=== PATIENT | female | born 1950 | race Caucasian/White ===

== ENCOUNTER 2022-12-21 07:21 | Outpatient (OUT) | payer MEDICARE, SELFPAY ==
[2022-12-21 08:19] LABS: Basophils Percent Auto 0.3 % (0.2-2.0); Eosinophils Absolute Auto 0.1 10^3/uL (0.0-0.7); Eosinophils Percent Auto 1.2 % (0.9-7.0); Hematocrit 44.6 % (36.0-48.0); Hemoglobin 14.7 g/dL (12.0-16.0); Immature Granulocytes Abs Auto 0.01 10^3/uL (0.00-0.03); Immature Granulocytes Pct Auto 0.1 % (0.0-0.5); Lymphocytes Absolute Auto 2.3 10^3/uL (1.2-3.8); Lymphocytes Percent Auto 25.1 % (20.5-60.0); Mean Corpuscular Hemoglobin 31.2 pg (26.7-34.0); Mean Corpuscular Volume 94.7 fL (81.0-99.0); Mean Platelet Volume 9.6 fL (9.5-13.5); Monocytes Absolute Auto 0.7 10^3/uL (0.3-0.8); Monocytes Percent Auto 7.8 % (1.7-12.0); Neutrophils Percent Auto 65.5 % (43.0-75.0); Platelet Count 249 10^3/uL (150-450); Red Blood Count 4.71 10^6/uL (4.20-5.40); Red Cell Distribution Width 13.4 % (11.0-15.0); White Blood Count 9.2 10^3/uL (4.0-11.0)
[2022-12-21 08:30] LABS: Estimated Average Glucose 97 mg/dL
[2022-12-21 08:39] LABS: Anion Gap 11.6; BUN Creatinine Ratio 19.2; Calcium 9.1 mg/dL (8.5-10.1); Chloride 103 mmol/L (98-107); Chol HDL Ratio 3.8; Cholesterol 192 mg/dL (<=200); Estimated GFR (African America >60 (>=60); Estimated GFR (Non-African Ame >60 (>=60); Glucose 104 mg/dL (74-106); HDL Cholesterol 50 mg/dL (40-60); Potassium 3.6 mmol/L (3.5-5.1); Sodium 138 mmol/L (136-145); Triglycerides 202 mg/dL (<=150); VLDL CHOLESTEROL 40.4 mg/dL
[2022-12-21 10:56] LABS: Microalbumin Urine Random <1.3 mg/dL (<=30.0)
== END 2022-12-21 07:22 | disposition home or self-care (01) ==
LOC: LAB 07:22
PROVIDERS: PCP Internal Medicine; Visit Provider Internal Medicine
DX: E11.65 Type 2 diabetes mellitus with hyperglycemia (principal); E78.00 Pure hypercholesterolemia, unspecified; I10 Essential (primary) hypertension; Z79.899 Other long term (current) drug therapy
CPT/HCPCS: 36415; 80048; 80061; 82043; 83036; 85025

== ENCOUNTER 2023-01-31 09:24 | Outpatient (OUT) | payer MEDICARE, SELFPAY ==
--- NOTE | 2023-01-31 09:27 | MM_ITS ---
Patient Name: JUDD YOUNG MR#: [id number] : 1950 Exam Date: 01/31/2023 Ordering Doctor: DR Kenan Donald D.O. RADIOLOGY REPORT PROCEDURE: MM TOMOSYNTHESIS SCREENING BI COMPARISON: MG MAMM SCREEN 3D [place] CAD, 01/27/2022. MG MAMM SCREEN 3D [place] CAD, 10/16/2020. MG MAMM SCREEN [place] W CAD, 03/05/2019. MG MAMM [place] DIAG W CAD, 03/06/2018. INDICATIONS: Screening Calculator Name NCI Breast Cancer Risk Assessment Tool 5 Year Breast Cancer Risk Not Reported. Lifetime Breast Cancer Risk Not Reported. Personal Breast Cancer No Personal Ovarian Cancer No Treatments None Family Cancers None LOCATION: [facility] BREAST COMPOSITION: Heterogeneously dense,which may obscure small masses. FINDINGS: DIAGNOSTIC CATEGORY 2--BENIGN FINDING: RIGHT BREAST: No significant suspicious finding. No significant change has occurred. LEFT BREAST: No significant suspicious finding. Stable benign-appearing calcifications are present. No significant change has occurred. RECOMMENDATIONS: ROUTINE MAMMOGRAM AND CLINICAL EVALUATION IN 12 MONTHS. PLEASE NOTE: A NORMAL MAMMOGRAM DOES NOT EXCLUDE THE POSSIBILITY OF BREAST CANCER. A CLINICALLY SUSPICIOUS PALPABLE LUMP SHOULD BE BIOPSIED. Dictated by: Jose Manuel Rodríguez M.D. on 02/01/2023 at 14:56 Approved by: Jose Manuel Rodríguez M.D. on 02/01/2023 at 15:23
== END 2023-01-31 09:25 | disposition home or self-care (01) ==
LOC: MAMMO 09:24
PROVIDERS: PCP Internal Medicine; Visit Provider Internal Medicine
DX: Z12.31 Encounter for screening mammogram for malignant neoplasm of breast (principal)
CPT/HCPCS: 77063; 77067

== ENCOUNTER 2023-05-06 10:01 | Outpatient (OUT) | payer MEDICARE, SELFPAY ==
--- OUTSIDE RECORDS SUMMARY | 2023-05-06 10:04 | XMS_ITS | CCD ---
Author Name Unknown Address [address] [place] [address] Organization [facility] Care Team Providers Care Agricultural Inspector Name Role Phone KENAN DONALD Referring Unavailable KENAN DONALD Primary Care Unavailable Kenan Donald DO Primary Care Provider OLU, DR DORENE Levin Admitting Unavailable BALL, DR BREWER Primary Care Unavailable RAINES, DR DORENE Levin Attending Unavailable RAINES, DR DORENE Levin Consulting Unavailable FRANKLIN, WINCHA Consulting Unavailable JASON, OCTAVIO Consulting Unavailable READER, BRUCE Consulting Unavailable BALL, DR BREWER Admitting Unavailable BALL, DR BREWER Attending Unavailable BALL, DR BREWER Primary Care Unavailable REQUEST, DR SMITH LISTED Admitting Unavaila ble BALL, DR BREWER Primary Care Unavailable REQUEST, DR SMITH LISTED Attending Unavaila ble REQUEST, DR SMITH LISTED Consulting Unavaila ble BALL, DR BREWER Admitting Unavailable BALL, DR BREWER Attending Unavailable BALL, DR BREWER Consulting Unavailable BALL, DR BREWER Primary Care Unavailable WEST, DR ONEIL Martinez Consulting Unavailable BALL, DR BREWER Admitting Unavailable BALL, DR BREWER Attending Unavailable BALL, DR BREWER Consulting Unavailable BALL, DR BREWER Primary Care Unavailable BALL, DR BREWER Admitting Unavailable BALL, DR BREWER Attending Unavailable BALL, DR BREWER Consulting Unavailable BALL, DR BREWER Primary Care Unavailable WEST, DR ONEIL Martinez Consulting Unavailable BALL, DR BREWER Primary Care Unavailable BALL, DR BREWER Admitting Unavailable BALL, DR BREWER Attending Unavailable BALL, DR BREWER Consulting Unavailable Ball, Kenan Unavailable Allergies Allergy Classification Reported Allergen(s) Allergy Type Date of Onset Reaction(s) Facility (1 source) Sulfonamides (Antibiotic) Drug allergy (disorder) [facility] (6 sources) Lisinopril Drug Allergy cough [facility] Other (6 sources) Sulfamethoxazole Drug Allergy Unknown [facility] Other (6 sources) Sulfamethoxazole / Trimethoprim Drug Allergy Unknown [facility] Other Medications Current Medications Medication Drug Class(es) Dates Sig (Normalized) Sig (Original) 3 ML semaglutide 1.34 MG/ML Pen Injector [Ozempic] (6 sources) Start: 04-14-2022 inject 1 mg by subcutaneous injection every week Ozempic (1 MG/DOSE) 4 MG/3ML 1mg Subcutaneous weekly for 28 days Mar, Active Ozempic (1 MG/DO SE) 4 MG/3ML INJECT 1 MG SUBCUTANEOUSLY WEEKLY FOR 28 DAYS for 28 Active 3 ML semaglutide 2.68 MG/ML Pen Injector [Ozempic] (3 sources) Start: 12-20-2022 inject 2 mg by subcutaneous injection every week Ozempic (2 MG/DOSE) 8 MG/3ML 2MG Subcutaneous weekly for 28 days Dec, Active adapalene 0.003 mg/mg topical gel (1 source) Retinoid Start: 11-10-2017 Adapalene 0.3 % GEL APPLY THIN LAYER TO FACE AND TRUNK EVERY DAY AT BEDTIME 2 11/10/2017 Active clobetasol propionate 0.0005 mg/mg topical ointment (6 sources) Corticosteroid Clobetasol Propionate 0.05 % 1 application Externally Twice a day Active losartan potassium 25 mg oral tablet (6 sources) Angiotensin 2 Receptor Bogdan take 1 tablet by mouth once daily Losartan Potassium 25 MG TAKE 1 TABLET BY MOUTH EVERY DAY Active metFORMIN hydrochloride 500 mg oral tablet (6 sources) Biguanide take 1 tablet by mouth at mealtime metFORMIN HCl 500 MG TAKE 1 TABLET BY MOUTH IN THE MORNING AND AT SUPPER TIME WITH FOOD Active take 1 tablet by mouth twice allie ly metFORMIN HCl 500 MG 1 tablet with a meal Orally twice a day Active minocycline 50 mg oral capsule (1 source) Tetracycline-class Drug Start: 11-05-2017 take 1-2 capsules by mouth once daily minocycline (MINOCIN;DYNACIN) 50 MG capsule TAKE 1 TO 2 CAPSULES BY MOUTH EVERY DAY 5 11/05/2017 Active omeprazole 20 mg delayed release oral capsule (7 sources) Proton Pump Inhibitor Omeprazole 20 MG TAKE 1 CAPSULE DAILY ON EMPTY STOMACH FOLLOWED IN 30 MINUTES BY BKFST Active take 20 mg by mouth once daily O meprazole (PRILOSEC PO) Take 20 mg by mouth daily OTC 0 Active OneTouch SureSoft Lancing Dev - (6 sources) OneTouch SureSof t Lancing Dev - as directed Active OneTouch Verio - (6 sources) OneTouch Verio - as directed In Vitro Active OneTouch Verio w/Device (6 sources) OneTouch Verio w /Device as directed Active 0.25 mg, 0.5 mg dose 1.5 ml semaglutide 1.34 mg/ml pen injector (2 sources) Ozempic (0.25 or 0.5 MG/DOSE) 2 MG/1.5ML as directed Subcutaneous Active spironolactone 50 mg oral tablet (1 source) Aldosterone Antagonist Start: 01-23-2018 spironolactone (ALDACTONE) 50 MG tablet triamcinolone acetonide 0.001 mg/mg topical ointment (1 source) Corticosteroid Start: 03-01-2019 triamcinolone (KENALOG) 0.1 % ointment Indications: Vulvar irritation Use twice daily over affected areas as needed for vulvar irritation. Not to exceed 6 weeks of continuous usage 1 Tube 1 03/01/2019 Active Problems Active Problems Problem Classification Problem Date Documented Da te Episodic/Chronic Diabetes mellitus with complications (9 sources) Type 2 diabetes mellitus with hyperglycemia; Translations: [Type 2 diabetes mellitus] Onset: 2 Chronic Diabetes mellitus without complication (1 source) Type 2 diabetes mellitus without complications; Translations: [TYPE 2 DM WITHOUT COMPLICATIONS] Onset: 2 Chronic Diabetes mellitus without complication (3 sources) Impaired fasting glycemia; Translations: [Impaired fasting glucose] Episodic Disorders of lipid metabolism (12 sources) Familial hypercholesterolemia; Translations: [Hypercholesterolemia] Onset: 2 Chronic Esophageal disorders (5 sources) Gastroesophageal reflux disease; Translations: [Gastro-esophageal reflux disease without esophagitis] Chronic Essential hypertension (12 sources) Essential (primary) hypertension; Translations: [Essential hypertension] Onset: 2 Chronic Genitourinary symptoms and ill-defined conditions (6 sources) Urinary incontinence; Translations: [Unspecified urinary incontinence] Chronic Heart valve disorders (1 source) Cardiac murmur, unspecified Episodic Malaise and fatigue (4 sources) Fatigue; Translations: [Other fatigue] Episodic Nutritional deficiencies (2 sources) Vitamin D deficiency; Translations: [Vitamin D deficiency, unspecified] Chronic Osteoarthritis (4 sources) Osteoarthritis of right hip joint; Translations: [Unilateral primary osteoarthritis, right hip] Chronic Other aftercare (2 sources) Other hop strainer (current) drug therapy; Translations: [OTH MCFP CURRENT DRUG THERAPY] Onset: 2 Episodic Other aftercare (6 sources) H/O: high risk medication; Translations: [Other fci (current) drug therapy] Episodic Other connective tissue disease (2 sources) Other symptoms and signs involving the nervous system; Translations: [Suspected sleep apnea] Episodic Other female genital disorders (6 sources) Leukoplakia of vulva; Translations: [Leukoplakia of vulva] Episodic Other gastrointestinal disorders (2 sources) Dysphagia; Translations: [Dysphagia, unspecified] Episodic Other non-traumatic joint disorders (4 sources) Pain in right hip joint; Translations: [Pain in right hip] Episodic Other non-traumatic joint disorders (1 source) Pain in right hip Episodic Other nutritional; endocrine; and metabolic disorders (1 source) Body mass index 30+ - obesity Onset: 5 03-22-2014 Chronic Other nutritional; endocrine; and metabolic disorders (6 sources) Obese class I; Translations: [Obesity, unspecified] Chronic Other nutritional; endocrine; and metabolic disorders (1 source) Obesity, unspecified Chronic Other nutritional; endocrine; and metabolic disorders (1 source) Overweight Episodic Other screening for suspected conditions (not mental disorders or infectious disease) (5 sources) Encounter for screening mammogram for malignant neoplasm of breast; Translations: [ENC SCR MAMMO MALIG NEOPLASM BREAST] Onset: 2 Episodic Residual codes; unclassified (2 sources) Asymptomatic menopausal state; Translations: [Menopause] Episodic Residual codes; unclassified (4 sources) Menopause present; Translations: [Asymptomatic menopausal state] Episodic Superficial injury; contusion (7 sources) Contusion of left back wall of thorax, initial encounter; Translations: [Contusion of unspecified back wall of thorax, initial encounter] Onset: 2 Episodic Unclassified (1 source) Patient encounter status Past or Other Problems Problem Classification Problem Date Documented Da te Episodic/Chronic E Codes: Fall (1 source) Fall from bed, initial encounter; Translations: [FALL FROM BED INITIAL ENCOUNTER] Onset: 10-20-2021 Episodic Esophageal disorders (5 sources) Esophageal disorders; Translations: [Gastroesophageal reflux disease with esophagitis without hemorrhage] Other aftercare (1 source) learning design specialist (current) use of oral hypoglycemic drugs; Translations: [MCFP USE ORAL HYPOGLYCEMIC DX] Onset: 10-20-2021 Episodic Other female genital disorders (1 source) Dystrophy of vulva Onset: 07-19-2014 07-19-2014 Episodic Other lower respiratory disease (4 sources) Pleurodynia; Translations: [PLEURODYNIA] Onset: 10-18-2021 Episodic Spondylosis; intervertebral disc disorders; other back problems (2 sources) Muscle spasm of back; Translations: [Dorsalgia, unspecified] Onset: 10-20-2021 Episodic Viral infection (2 sources) Disease caused by 2019-nCoV; Translations: [COVID-19] Results Test Name Value Interpretation Reference Range Facility MG MAMM SCREEN 3D KAITLYNN CADon 01-27-2022 MG MAMM SCREEN 3D KAITLYNN CAD Patient: JUDD YOUNG Exam Date: 01/27/2022 : 1950 Gender:F Ordering : DR KENAN DONALD D.O. Admission #: [id number] Family : Order #: [id number] CLICK HERE TO VIEW EXAM RADIOLOGY REPORT PROCEDURE: MAMMOGRAM SCREENING 3D BILATERAL CAD COMPARISON: MG MAMM SCREEN KAITLYNN W CAD, 03/05/2019. MG MAMM SCREEN 3D KAITLYNN CAD, 10/16/2020. INDICATIONS: Screening mammography Calculator Name NCI Breast Cancer Risk Assessment Tool 5 Year Breast Cancer Risk Not Reported. Lifetime Breast Cancer Risk Not Reported. Personal Breast Cancer No Personal Ovarian Cancer No Treatments None Family Cancers None LOCATION: [facility] BREAST COMPOSITION: Heterogeneously dense,which may obscure small masses. FINDINGS: DIAGNOSTIC CATEGORY 2--BENIGN FINDING. NO CHANGE FROM COMPARISON. Scattered benign-appearing calcifications are present. Scattered benign-appearing lymph nodes are present. RIGHT BREAST: No significant suspicious finding. LEFT BREAST: No significant suspicious finding. RECOMMENDATIONS: ROUTINE MAMMOGRAM AND CLINICAL EVALUATION IN 12 MONTHS. PLEASE NOTE: A NORMAL MAMMOGRAM DOES NOT EXCLUDE THE POSSIBILITY OF BREAST CANCER. A CLINICALLY SUSPICIOUS PALPABLE LUMP SHOULD BE BIOPSIED. Dictated by: Oneil Riggs MD on 01/27/2022 at 13:10 Approved by: Oneil Riggs MD on 01/27/2022 at 13:12 Normal [facility] MICROALBUMIN URINEon 022 Albumin, Urine 22.7 ug/mL Normal Not Estab. [facility] Comment on above: Performed By: #### M ALBLC #### [facility] [address] [place] [address] Dr. Alex Gallego CBC AUTO DIFFon 12-15-2021 BASO # 0.0 103/ul Normal 0.0-0.1 [facility] Comment on above: Performed By: #### M ALBLC #### [facility] [address] [place] [address] Dr. Alex Gallego Basophils/100 WBC (Bld) 0.5 % Normal 0.2-2.0 [facility] Comment on above: Performed By: #### M ALBLC #### [facility] [address] [place] [address] Dr. Alex Gallego EO # 0.2 103/ul Normal 0.0-0.7 [facility] Comment on above: Performed By: #### M ALBLC #### [facility] [address] [place] [address] Dr. Alex Gallego Eosinophils/100 WBC (Bld) 2.2 % Normal 0.9-7.0 [facility] Comment on above: Performed By: #### M ALBLC #### [facility] [address] [place] [address] Dr. Alex Gallego Erythrocyte distribution width (RBC) [Ratio] 13.7 % Normal 11.0-15.0 [facility] Comment on above: Performed By: #### M ALBLC #### [facility] [address] [place] [address] Dr. Alex Gallego Hematocrit (Bld) [Volume fraction] 45.6 % Normal 36.0-48.0 [facility] Comment on above: Performed By: #### M ALBLC #### [facility] [address] [place] [address] Dr. Alex Gallego Hemoglobin (Bld) [Mass/Vol] 15.1 g/dL Normal 12.0-16.0 [facility] Comment on above: Performed By: #### M ALBLC #### [facility] [address] [place] [address] Dr. Alex Gallego IG # 0.02 10e3/ul Normal 0.00-0.03 [facility] Comment on above: Performed By: #### M ALBLC #### [facility] [address] [place] [address] Dr. Alex Gallego IG % 0.2 % Normal 0.0-0.5 [facility] Comment on above: Performed By: #### M ALBLC #### [facility] [address] [place] [address] Dr. Alex Gallego LYMPH # 3.7 103/ul Normal 1.2-3.8 [facility] Comment on above: Performed By: #### M ALBLC #### [facility] [address] [place] [address] Dr. Alex Gallego Lymphocytes/100 WBC (Bld) 46.1 % Normal 20.5-60.0 [facility] Comment on above: Performed By: #### M ALBLC #### [facility] [address] [place] [address] Dr. Alex Gallego MANUAL DIFF REQ NO Normal [facility] Comment on above: Performed By: #### M ALBLC #### [facility] [address] [place] [address] Dr. Alex Gallego MCH (RBC) [Entitic mass] 31.0 pg Normal 26.7-34.0 [facility] Comment on above: Performed By: #### M ALBLC #### [facility] [address] [place] [address] Dr. Alex Gallego MCHC (RBC) [Mass/Vol] 33.1 g/dL Normal 29.9-35.2 [facility] Comment on above: Performed By: #### M ALBLC #### [facility] [address] [place] [address] Dr. Alex Gallego MCV (RBC) [Entitic vol] 93.6 fL Normal 81.0-99.0 [facility] Comment on above: Performed By: #### M ALBLC #### [facility] [address] [place] [address] Dr. Alex Gallego MONO # 0.6 103/ul Normal 0.3-0.8 [facility] Comment on above: Performed By: #### M ALBLC #### [facility] [address] [place] [address] Dr. Alex Gallego Monocytes/100 WBC (Bld) 7.9 % Normal 1.7-12.0 [facility] Comment on above: Performed By: #### M ALBLC #### [facility] [address] [place] [address] Dr. Alex Gallego NEUT # 3.5 103/ul Normal 1.4-6.5 [facility] Comment on above: Performed By: #### M ALBLC #### [facility] [address] [place] [address] Dr. Alex Gallego Neutrophils/100 WBC (Bld) 43.1 % Normal 43.0-75.0 [facility] Comment on above: Performed By: #### M ALBLC #### [facility] [address] [place] [address] Dr. Alex Gallego Platelet mean volume (Bld) [Entitic vol] 9.5 fL Normal 9.5-13.5 [facility] Comment on above: Performed By: #### M ALBLC #### [facility] [address] [place] [address] Dr. Alex Gallego PLT 265 103/ul Normal 150-450 [facility] Comment on above: Performed By: #### M ALBLC #### [facility] [address] [place] [address] Dr. Alex Gallego RBC 4.87 106/ul Normal 4.20-5.40 [facility] Comment on above: Performed By: #### M ALBLC #### [facility] [address] [place] [address] Dr. Alex Gallego WBC 8.1 103/ul Normal 4.0-11.0 [facility] Comment on above: Performed By: #### M ALBLC #### [facility] [address] [place] [address] Dr. Alex Gallego GLYCOHEMOGLOBIN A1Con 2021 ADA RECOMMENDATION SEE BELOW Normal [facility] Comment on above: Result Comment: ADA RECOMMENDED LIMIT 4.0 - 6.0 ADA THERAPEUTIC TARGET < 7.0 ACTION SUGGESTED > 7.0 Performed By: #### M ALBLC #### [facility] [address] [address] [address] Alex Gallego Glucose [Mass/Vol] 117 mg/dL Normal [facility] Comment on above: Performed By: #### M ALBLC #### [facility] [address] [address] [address] Alex Gallego HbA1c (Bld) [Mass fraction] 5.7 % Normal 4.5-6.2 [facility] Comment on above: Performed By: #### M ALBLC #### [facility] [address] [place] [address] Dr. Alex Gallego LIPID PROFILEon 12-15-2021 CHOL-HDL RATIO NORM SEE BELOW Normal [facility] Comment on above: Result Comment: 3.3 - 4.4 LOW RISK 4.4 - 7.1 AVERAGE RISK 7.1 - 11.0 MODERATE RISK >11.0 HIGH RISK Performed By: #### L IPID, ALT, BMP #### [facility] [address] [place] [address] Dr. Alex Gallego Cholesterol [Mass/Vol] 195 mg/dL Normal <=200 [facility] Comment on above: Performed By: #### L IPID, ALT, BMP #### [facility] [address] [address] [address] Alex Gallego Cholesterol in HDL [Mass/Vol] 45 mg/dL Normal 40-60 [facility] Comment on above: Performed By: #### L IPID, ALT, BMP #### [facility] [address] [address] [address] Alex Gallego Cholesterol in LDL [Mass/Vol] 120.0 mg/dL Normal [facility] Comment on above: Performed By: #### L IPID, ALT, BMP #### [facility] [address] [address] [address] Alex Gallego Cholesterol.total/Cho lesterol in HDL [Mass ratio] 4.3 {ratio} Normal [facility] Comment on above: Performed By: #### L IPID, ALT, BMP #### [facility] [address] [address] [address] Alex Gallego HDL NORMAL > or = 60 mg/dl - LO W CARDIOVASCULAR RISK <40 mg/dl - HIGH CARDIOVASCULAR RISK Normal [facility] Comment on above: Performed By: #### L IPID, ALT, BMP #### [facility] [address] [address] [address] Alex Gallego LDL CALC NORMAL SEE BELOW Normal [facility] Comment on above: Result Comment: <100 mg/dl OPTIMAL 100 - 129 mg/dl NEAR OR ABOVE OPTIMAL 130 - 159 mg/dl BORDERLINE HIGH 160 - 189 mg/dl HIGH >190 mg/dl VERY HIGH Performed By: #### L IPID, ALT, BMP #### [facility] [address] [address] [address] Alex Gallego Triglyceride [Mass/Vol] 150 mg/dL Normal <=150 [facility] Comment on above: Performed By: #### L IPID, ALT, BMP #### [facility] [address] [address] [address] Alex Gallego VLDL CALC 30.0 mg/dL Normal [facility] Comment on above: Performed By: #### L IPID, ALT, BMP #### [facility] [address] [address] [address] Alxe Gallego PROF CHEM 8 (BAS METB)on Anion gap [Moles/Vol] 13.6 mmol/L Normal [facility] Comment on above: Performed By: #### L IPID, ALT, BMP #### [facility] [address] [address] [address] Alex Gallego Calcium [Mass/Vol] 9.3 mg/dL Normal 8.5-10.1 [facility] Comment on above: Performed By: #### L IPID, ALT, BMP #### [facility] [address] [address] [address] Alex Gallego Chloride [Moles/Vol] 103 mmol/L Normal 98-107 [facility] Comment on above: Performed By: #### L IPID, ALT, BMP #### [facility] [address] [address] [address] Alex Gallego CO2 [Moles/Vol] 27.6 mmol/L Normal 21.0-32.0 [facility] Comment on above: Performed By: #### L IPID, ALT, BMP #### [facility] [address] [address] [address] Alex Gallego Creatinine [Mass/Vol] 0.75 mg/dL Normal 0.55-1.02 [facility] Comment on above: Performed By: #### L IPID, ALT, BMP #### [facility] [address] [place] [address] Dr. Alex Gallego EGFR-AF GUATEMALAN >60 Normal >=60 [facility] Comment on above: Performed By: #### L IPID, ALT, BMP #### [facility] [address] [place] [address] Dr. Alex Gallego EGFR-NON AF GUATEMALAN >60 Normal >=60 [facility] Comment on above: Performed By: #### L IPID, ALT, BMP #### [facility] [address] [place] [address] Dr. Alex Gallego Glucose [Mass/Vol] 126 mg/dL Critically high 74-106 [facility] Comment on above: Performed By: #### L IPID, ALT, BMP #### [facility] [address] [address] [address] Alex Gallego Potassium [Moles/Vol] 4.2 mmol/L Normal 3.5-5.1 [facility] Comment on above: Performed By: #### L IPID, ALT, BMP #### [facility] [address] [place] [address] Dr. Alex Gallego Sodium [Moles/Vol] 140 mmol/L Normal 136-145 [facility] Comment on above: Performed By: #### L IPID, ALT, BMP #### [facility] [address] [place] [address] Dr. Alex Gallego Urea nitrogen [Mass/Vol] 16.0 mg/dL Normal 7.0-18.0 [facility] Comment on above: Performed By: #### L IPID, ALT, BMP #### [facility] [address] [place] [address] Dr. Alex Gallego Urea nitrogen/Creatinine [Mass ratio] 21.3 mg/mg Normal [facility] Comment on above: Performed By: #### L IPID, ALT, BMP #### [facility] [address] [place] [address] Dr. Alex Gallego [facility] 12-15-2021 ALT [Catalytic activity/Vol] 58 U/L Normal 14-59 [facility] Comment on above: Performed By: #### L IPID, ALT, BMP #### [facility] [address] [place] [address] Dr. Alex Gallego XR RIBS LT PA Crystal XR RIBS LT PA CH EXAMINATION: XR RIBS LT PA CH HISTORY: Contusion of back COMPARISON: 10/18/2021, 10/18/2021 FINDINGS: LUNGS: No significant pulmonary parenchymal abnormalities. PLEURA: No pneumothorax, effusion, or pleural thickening. MEDIASTINUM: No visible mass or adenopathy. CARDIAC: No cardiomegaly or cardiac silhouette abnormality. RIBS: No acute rib fracture OTHER: Single surgical anchor right humeral head IMPRESSION: No acute rib fracture Clear lungs Electronically authenticated by: ONEIL RIGGS Date: 2021-11-16 12:33 Normal [facility] CBC AUTO DIFFon 10-18-2021 BASO # 0.0 103/ul Normal 0.0-0.1 [facility] Comment on above: Performed By: #### C BC #### [facility] [address] [place] [address] Dr. Alex Gallego Basophils/100 WBC (Bld) 0.5 % Normal 0.2-2.0 [facility] Comment on above: Performed By: #### C BC #### [facility] [address] [place] [address] Dr. Alex Gallego EO # 0.2 103/ul Normal 0.0-0.7 [facility] Comment on above: Performed By: #### C BC #### [facility] [address] [place] [address] Dr. Alex Gallego Eosinophils/100 WBC (Bld) 2.1 % Normal 0.9-7.0 [facility] Comment on above: Performed By: #### C BC #### [facility] [address] [place] [address] Dr. Alex Gallego Erythrocyte distribution width (RBC) [Ratio] 14.1 % Normal 11.0-15.0 [facility] Comment on above: Performed By: #### C BC #### [facility] [address] [place] [address] Dr. Alex Gallego Hematocrit (Bld) [Volume fraction] 43.1 % Normal 36.0-48.0 [facility] Comment on above: Performed By: #### C BC #### [facility] [address] [place] [address] Dr. Alex Gallego Hemoglobin (Bld) [Mass/Vol] 14.5 g/dL Normal 12.0-16.0 [facility] Comment on above: Performed By: #### C BC #### [facility] [address] [place] [address] Dr. Alex Gallego IG # 0.01 10e3/ul Normal 0.00-0.03 [facility] Comment on above: Performed By: #### C BC #### [facility] [address] [place] [address] Dr. Alex Gallego IG % 0.1 % Normal 0.0-0.5 [facility] Comment on above: Performed By: #### C BC #### [facility] [address] [place] [address] Dr. Alex Gallego LYMPH # 2.8 103/ul Normal 1.2-3.8 [facility] Comment on above: Performed By: #### C BC #### [facility] [address] [place] [address] Dr. Alex Gallego Lymphocytes/100 WBC (Bld) 36.8 % Normal 20.5-60.0 [facility] Comment on above: Performed By: #### C BC #### [facility] [address] [place] [address] Dr. Alex Gallego MANUAL DIFF REQ NO Normal [facility] Comment on above: Performed By: #### C BC #### [facility] [address] [place] [address] Dr. Alex Gallego MCH (RBC) [Entitic mass] 30.9 pg Normal 26.7-34.0 [facility] Comment on above: Performed By: #### C BC #### [facility] [address] [place] [address] Dr. Alex Gallego MCHC (RBC) [Mass/Vol] 33.6 g/dL Normal 29.9-35.2 [facility] Comment on above: Performed By: #### C BC #### [facility] [address] [place] [address] Dr. Alex Gallego MCV (RBC) [Entitic vol] 91.9 fL Normal 81.0-99.0 [facility] Comment on above: Performed By: #### C BC #### [facility] [address] [place] [address] Dr. Alex Gallego MONO # 0.6 103/ul Normal 0.3-0.8 [facility] Comment on above: Performed By: #### C BC #### [facility] [address] [place] [address] Dr. Alex Gallego Monocytes/100 WBC (Bld) 7.6 % Normal 1.7-12.0 [facility] Comment on above: Performed By: #### C BC #### [facility] [address] [place] [address] Dr. Alex Gallego NEUT # 4.0 103/ul Normal 1.4-6.5 [facility] Comment on above: Performed By: #### C BC #### [facility] [address] [place] [address] Dr. Alex Gallego Neutrophils/100 WBC (Bld) 52.9 % Normal 43.0-75.0 [facility] Comment on above: Performed By: #### C BC #### [facility] [address] [address] [address] Alex Gallego Platelet mean volume (Bld) [Entitic vol] 9.5 fL Normal 9.5-13.5 [facility] Comment on above: Performed By: #### C BC #### [facility] [address] [address] [address] Alex Gallego PLT 255 103/ul Normal 150-450 [facility] Comment on above: Performed By: #### C BC #### [facility] [address] [address] [address] Alex Gallego RBC 4.69 106/ul Normal 4.20-5.40 [facility] Comment on above: Performed By: #### C BC #### [facility] [address] [place] [address] Dr. Alex Gallego WBC 7.5 103/ul Normal 4.0-11.0 [facility] Comment on above: Performed By: #### C BC #### [facility] [address] [place] [address] Dr. Alex Gallego CTA CHEST WO W CONon 022 CTA CHEST WO W CON EXAMINATION: CTA [facility]ARRETT ST WO W CON HISTORY: CHEST PAIN, UNSPECIFIED , fall from bed. ER physician is concerned for chest injury based on radiographs. COMPARISON: Chest radiograph 10/18/2021. TECHNIQUE: CT angiography of the chest following the administration of intravenous contrast. Coronal and sagittal MIP (maximum intensity projection) images were performed. Dose reduction techniques were achieved by using automated exposure control and/or adjustment of mA and/or kV according to patient size and/or use of iterative reconstruction technique. FINDINGS: The thoracic aorta is mildly atherosclerotic. There is no thoracic aortic aneurysm or dissection. Incidentally noted an aberrant right subclavian artery. The visualized subclavian and common carotid arteries at the upper chest are patent. Heart size is mildly enlarged. No pericardial effusion. There is no large, central, lobar, segmental or proximal subsegmental pulmonary embolism. There is breathing motion artifact and atelectasis throughout the lungs. No consolidation, effusion, or pneumothorax. No mediastinal, hilar, or axillary lymphadenopathy. There are few small calcified mediastinal lymph nodes and hilar lymph nodes. Nonenlarged thyroid gland. There is a small hiatal hernia. Marked fatty infiltration of the liver is seen with suggestion of hepatomegaly, incompletely evaluated. There are numerous calcified granulomas in the liver and spleen. No free fluid or free air in the upper abdomen. 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 There are mild degenerative changes of the spine. No thoracic spine compression fracture or listhesis. No acute cervical fracture or acute displaced fractures of the ribs above the diaphragm. IMPRESSION: 1. Mildly atherosclerotic thoracic aorta without aortic aneurysm or dissection. There is mild cardiomegaly and a vascular-variant with aberrant right subclavian artery. 2. Breathing motion artifact and atelectasis throughout the lungs, without focal consolidation, effusion, or pneumothorax. 3. Negative for pulmonary embolism. 4. Negative for thoracic lymphadenopathy. 5. Mild degenerative spurs of the thoracic spine without thoracic spine compression fracture or listhesis. No acute sternal fracture or acute displaced fractures of the ribs above the diaphragm. 6. Small hiatal hernia, marked fatty infiltration of the liver with suggestion of hepatomegaly that is incompletely evaluated, sequela of old healed granulomatous infection, and additional incidental findings as described. Electronically authenticated by: RANDI FRANKLIN Date: 2021-10-18 08:45 Normal [facility] PROF 14(COMP METB)on 022 Albumin [Mass/Vol] 4.1 g/dL Normal 3.4-5.0 [facility] Comment on above: Performed By: #### C MP #### [facility] [address] [place] [address] Dr. Alex Gallego Albumin/Globulin [Mass ratio] 1.1 {ratio} Normal [facility] Comment on above: Performed By: #### C MP #### [facility] [address] [address] [address] Alex Gallego ALP [Catalytic activity/Vol] 85 U/L Normal 46-116 [facility] Comment on above: Performed By: #### C MP #### [facility] [address] [address] [address] Alex Gallego ALT [Catalytic activity/Vol] 69 U/L Critically high 14-59 [facility] Comment on above: Performed By: #### C MP #### [facility] [address] [address] [address] Alex Gallego Anion gap [Moles/Vol] 14.3 mmol/L Normal [facility] Comment on above: Performed By: #### C MP #### [facility] [address] [place] [address] Dr. Alex Gallego AST [Catalytic activity/Vol] 33 U/L Normal 15-37 [facility] Comment on above: Performed By: #### C MP #### [facility] [address] [address] [address] Alex Gallego Bilirubin [Mass/Vol] 0.5 mg/dL Normal 0.2-1.0 [facility] Comment on above: Performed By: #### C MP #### [facility] [address] [place] [address] Dr. Alex Gallego Calcium [Mass/Vol] 8.9 mg/dL Normal 8.5-10.1 [facility] Comment on above: Performed By: #### C MP #### [facility] [address] [place] [address] Dr. Alex Gallego Chloride [Moles/Vol] 106 mmol/L Normal 98-107 [facility] Comment on above: Performed By: #### C MP #### [facility] [address] [place] [address] Dr. Alex Gallego CO2 [Moles/Vol] 25.7 mmol/L Normal 21.0-32.0 [facility] Comment on above: Performed By: #### C MP #### [facility] [address] [place] [address] Dr. Alex Gallego Creatinine [Mass/Vol] 0.86 mg/dL Normal 0.55-1.02 [facility] Comment on above: Performed By: #### C MP #### [facility] [address] [place] [address] Dr. Alex Gallego EGFR-AF GUATEMALAN >60 Normal >=60 [facility] Comment on above: Performed By: #### C MP #### [facility] [address] [place] [address] Dr. Alex Gallego EGFR-NON AF GUATEMALAN >60 Normal >=60 [facility] Comment on above: Performed By: #### C MP #### [facility] [address] [place] [address] Dr. Alex Gallego Globulin (S) [Mass/Vol] 3.6 g/dL Normal [facility] Comment on above: Performed By: #### C MP #### [facility] [address] [address] [address] Alex Gallego Glucose [Mass/Vol] 144 mg/dL Critically high 74-106 [facility] Comment on above: Performed By: #### C MP #### [facility] [address] [address] [address] Alex Gallego Potassium [Moles/Vol] 4.0 mmol/L Normal 3.5-5.1 [facility] Comment on above: Performed By: #### C MP #### [facility] [address] [place] [address] Dr. Alex Gallego Protein [Mass/Vol] 7.7 g/dL Normal 6.4-8.2 [facility] Comment on above: Performed By: #### C MP #### [facility] [address] [place] [address] Dr. Alex Gallego Sodium [Moles/Vol] 142 mmol/L Normal 136-145 [facility] Comment on above: Performed By: #### C MP #### [facility] [address] [address] [address] Alex Gallego Urea nitrogen [Mass/Vol] 19.0 mg/dL Critically high 7.0-18.0 [facility] Comment on above: Performed By: #### C MP #### [facility] [address] [address] [address] Alex Gallego Urea nitrogen/Creatinine [Mass ratio] 22.1 mg/mg Normal [facility] Comment on above: Performed By: #### C MP #### [facility] [address] [place] [address] Dr. Alex Gallego XR CHEST 1 Von 10-18-2021 XR CHEST 1 V EXAM: XR CHEST 1 V 10/18/2021. HISTORY: Pain in the posterior left mid ribs after a fall from a bed. CHEST PAIN, UNSPECIFIED COMPARISON: None. TECHNIQUE: A portable upright AP view of the chest was obtained. FINDINGS: The heart appears within normal limits in size allowing for the portable technique. No focal consolidation, pleural effusion, pneumothorax or evidence of congestive heart failure is seen. IMPRESSION: No radiographic evidence of active cardiopulmonary disease is seen. Electronically authenticated by: BRUCE READER Date: 2021-10-18 07:17 Normal [facility] JOAN - TSHon 07-21-2021 TSH 1.848 uIU/mL Normal 0.470-4.680 [facility] Comment on above: Performed By: #### M ALBLC #### [facility] [address] [place] [address] Dr. Alex Gallego TSH RANGE SEE BELOW Normal [facility] Comment on above: Result Comment: <0.3 4 UIU/ml HYPERTHYROID 0.34-5.60 UIU/ml EUTHYROID >5.60 UIU/ml HYPOTHYROID Performed By: #### M ALBLC #### [facility] [address] [place] [address] Dr. Alex Gallego GLYCOHEMOGLOBIN A1Con 2021 ADA RECOMMENDATION SEE BELOW Normal [facility] Comment on above: Result Comment: ADA RECOMMENDED LIMIT 4.0 - 6.0 ADA THERAPEUTIC TARGET < 7.0 ACTION SUGGESTED > 7.0 Performed By: #### M ALBLC #### [facility] [address] [place] [address] Dr. Alex Gallego Glucose [Mass/Vol] 123 mg/dL Normal [facility] Comment on above: Performed By: #### M ALBLC #### [facility] [address] [place] [address] Dr. Alex Gallego HbA1c (Bld) [Mass fraction] 5.9 % Normal 4.5-6.2 [facility] Comment on above: Performed By: #### M ALBLC #### [facility] [address] [place] [address] Dr. Alex Gallego MARKO DIGITAL SCREEN W CAD KAITLYNN ATERALOrdered By: Andrew Mix on 03-07-2019 No evidence of malignancy. Advise annual screening mammography. BREAST DENSITY SUMMARY C: The breasts are heterogeneously dense which may obscure small masses. BI-RADS 1 BIRADS: BIRADS - CATEGORY 1 Negative, no evidence of malignancy in either breast. OVERALL ASSESSMENT - NEGATIVE A letter of notification will be sent to the patient regarding the results. RECOMMENDATION: Routine bilateral annual screening mammography is recommended. Follow-up screening mammogram in 1 year is advised. [employer] Liaison Phone: EXAMINATION: BILATER AL DIGITAL SCREENING MAMMOGRAM, 03/05/2019 TECHNIQUE: CC and MLO views of the left and right breasts were obtained. Computer aided detection was utilized in the interpretation of this exam. 3D tomosynthesis images were obtained. COMPARISON: 17 February 2018; 06 November 2016; 03 July 2014; 27 August 2011 HISTORY: Screening. Negative family history of breast cancer. Oral contraceptive usage x2 months. Negative history of replacement therapy. No prior breast interventions. FINDINGS: The breasts are heterogeneously dense which can obscure small masses. No skin thickening, contour changes, malignant type microcalcifications areas of architectural distortion significant interval changes are noted. [employer] Liaison Phone: [place], pn Incoming Radiant Results From [employer] - 03/07/2019 11:48 AM EST EXAMINATION: BILATERAL DIGITAL SCREENING MAMMOGRAM, 03/05/2019 TECHNIQUE: CC and MLO views of the left and right breasts were obtained. Computer aided detection was utilized in the interpretation of this exam. 3D tomosynthesis images were obtained. COMPARISON: 17 February 2018; 06 November 2016; 03 July 2014; 27 August 2011 HISTORY: Screening. Negative family history of breast cancer. Oral contraceptive usage x2 months. Negative history of replacement therapy. No prior breast interventions. FINDINGS: The breasts are heterogeneously dense which can obscure small masses. No skin thickening, contour changes, malignant type microcalcifications areas of architectural distortion significant interval changes are noted. IMPRESSION: No evidence of malignancy. Advise annual screening mammography. BREAST DENSITY SUMMARY C: The breasts are heterogeneously dense which may obscure small masses. BI-RADS 1 BIRADS: BIRADS - CATEGORY 1 Negative, no evidence of malignancy in either breast. OVERALL ASSESSMENT - NEGATIVE A letter of notification will be sent to the patient regarding the results. RECOMMENDATION: Routine bilateral annual screening mammography is recommended. Follow-up screening mammogram in 1 year is advised. [employer] Work Phone: MARKO DIGITAL SCREEN W OR WO C AD BILATERALon 03-07-2019 MARKO DIGITAL SCREEN W OR WO CAD BILATERAL EXAMINATION: BILATERAL DIGITAL SCREENING MAMMOGRAM, 03/05/2019 TECHNIQUE: CC and MLO views of the left and right breasts were obtained. Computer aided detection was utilized in the interpretation of this exam. 3D tomosynthesis images were obtained. COMPARISON: 17 February 2018; 06 November 2016; 03 July 2014; 27 August 2011 HISTORY: Screening. Negative family history of breast cancer. Oral contraceptive usage x2 months. Negative history of replacement therapy. No prior breast interventions. FINDINGS: The breasts are heterogeneously dense which can obscure small masses. No skin thickening, contour changes, malignant type microcalcifications areas of architectural distortion significant interval changes are noted. IMPRESSION: No evidence of malignancy. Advise annual screening mammography. BREAST DENSITY SUMMARY C: The breasts are heterogeneously dense which may obscure small masses. BI-RADS 1 BIRADS: BIRADS - CATEGORY 1 Negative, no evidence of malignancy in either breast. OVERALL ASSESSMENT - NEGATIVE A letter of notification will be sent to the patient regarding the results. RECOMMENDATION: Routine bilateral annual screening mammography is recommended. Follow-up screening mammogram in 1 year is advised. Interpreted by: Jael Rice MD Signed by: Jael Rice MD 03/07/19 CC Recipients: Kenan Donald DO - Fax Final result Normal [facility] Vital Signs Date Time Vital Sign Value Performing Clinician Facility 12-20-2022 10:00-0400 Body height 154.94 cm Kenan Donald Other [facility] Other 12-20-2022 10:00-0400 Body mass index (BMI) [Ratio] 29.28 kg/m2 Kenan Donald Other [facility] Other 12-20-2022 10:00-0400 Body weight 70.31 kg Kenan Donald Other [facility] Other 12-20-2022 10:00-0400 Diastolic blood pressure 82 mm[Hg] Kenan Donald Other [facility] Other 12-20-2022 10:00-0400 Respiratory rate 12 /min Kenan Ball Other [facility] Other 12-20-2022 10:00-0400 Systolic blood pressure 135 mm[Hg] Kenan Ball Other [facility] Other 04-14-2022 10:00-0500 Body height 154.94 cm Kenan Ball Other [facility] Other 04-14-2022 10:00-0500 Body mass index (BMI) [Ratio] 30.19 kg/m2 Kenan Ball Other [facility] Other 04-14-2022 10:00-0500 Body temperature 96.9 [degF] Kenan Ball Other [facility] Other 04-14-2022 10:00-0500 Body weight 72.49 kg Kenan Ball Other [facility] Other 04-14-2022 10:00-0500 Diastolic blood pressure 80 mm[Hg] Kenan Ball Other [facility] Other 04-14-2022 10:00-0500 SaO2% (BldA) [Mass fraction] 98 % Kenan Ball Other [facility] Other 04-14-2022 10:00-0500 Systolic blood pressure 126 mm[Hg] Kenan Ball Other [facility] Other Encounters Encounter Date Encounter Type Care Provider Facility Start: 02-02-2023 End: 02-02-2023 ambulatory Kenan Ball Other [facility] Other Start: 02-02-2023 Telephone encounter Kenan Odilon [facility] Start: 12-22-2022 End: 12-22-2022 ambulatory Kenan Donald Other [facility] Other Start: 12-22-2022 Telephone encounter Kenan Donald [facility] Start: 12-20-2022 End: 12-20-2022 ambulatory Kenan Donald Other [facility] Other Start: 12-20-2022 Patient encounter procedure Kenan Donald [facility] Start: 11-04-2022 End: 11-04-2022 ambulatory Kenan Donald Other [facility] Other Start: 11-04-2022 Telephone encounter Kenan [facility] Start: 04-14-2022 End: 04-14-2022 ambulatory Kenan Donald Other [facility] Other Start: 04-14-2022 Office outpatient vi sit 25 minutes Kenan Donald [facility] Start: 04-08-2022 End: 04-09-[address] KENAN DONALD Facility:[facility] Start: 03-29-2022 End: 03-29-2022 ambulatory Kenan Donald Other [facility] Other Start: 03-29-2022 Telephone encounter Kenan Donald [facility] Start: 01-27-2022 End: 01-28-[address] KENAN DONALD Facility:[facility] Start: 12-15-2021 End: 12-16-[address] KENAN DONALD Facility:[facility] Start: 11-16-2021 End: 11-17-[address] KENAN DONALD Facility:[facility] Start: 10-18-2021 End: 10-18-[address] DORENE RAINES Facility:[facility] Start: 07-27-[address] KENAN Griffini ty:[facility] Start: 07-20-2021 End: 07-21-[address] SMITH LISTED REQUEST Facility:[facility] Start: 03-05-2019 End: 03-08-2019 Patient encounter procedure KENAN Wu ODILON [facility] Start: 03-05-2019 End: 03-07-2019 Subsequent hospital visit by physician [facility] [employer] [facility] Comment on above: Screening mammogram for high-risk patient Procedures Date Procedure Procedure Detail Performing Clinician Start: 03-05-2019 Screening mammograph y bi 2-view breast inc cad KENAN DONALD Start: 03-05-2019 Screening digital br east tomosynthesis bi Andrew Mix MD Work Phone: Depression screening Cornelius Donald Other Screening for malign ant neoplasm of breast Kenan Donald Other Plan of Treatment Date Care Activity Detail Author Start: 03-06-2020 Breast cancer screen Breast cancer s creen [employer]ia[employer] Phone: Start: 09-10-2018 Annual Wellness Visi t (AWV) Annual Wellness Visit (AWV) [employer]iaison Phone: Start: 2015 DEXA (modify frequen cy per FRAX score) DEXA (modify frequency per FRAX score) [employer] [facility]iaison Phone: Start: 08-26-2012 Creatinine monitoring Creatinine mon itoring [employer]iaison Phone: Start: 01-21-2000 Colon cancer screen colonoscopy Colon cancer screen colonoscopy [employer] Phone: Start: 01-21-2000 Shingles Vaccine (1 of 2) Shingles Vaccine (1 of 2) [employer] [facility]iaison Phone: Start: 1990 Diabetes screen Diabetes screen [facility] Phone: Start: 1990 Lipid screen Lipid screen [place] Work Phone: Start: 1961 DTaP/Tdap/Td vaccine (1 - Tdap) DTaP/Tdap/Td vaccine (1 - Tdap) [employer] [facility]iaison Phone: Start: 1950 Hepatitis C screen Hepatitis C scree n [employer]iaison Phone: Start: 1950 Potassium monitoring Potassium monit oring [facility] Work Phone: Immunizations Immunization Date Immunization Notes Care Provider Smiley giulianajuliocesar 12-20-2022 influenza, high dose seasonal, preservative-free Kenan Donald Other [facility] Other 12-16-2021 influenza virus vaccine, split virus (incl. purified surface antigen) Kenan Donald Other [facility] Other 12-16-2021 pneumococcal polysaccharide vaccine, 23 valent Kenan Donald Other [facility] Other 01-21-2021 zoster vaccine, live Benjami n Ball Other [facility] Other 12-22-2020 influenza virus vaccine, split virus (incl. purified surface antigen) Kenan Donald Other [facility] Other 10-10-2020 zoster vaccine, live Benjami n Ball Other [facility] Other 01-01-2020 influenza virus vaccine, split virus (incl. purified surface antigen) Kenan Donald Other [facility] Other 12-23-2017 Influenza Vaccine, unspecified formulation [facility] Phone: 12-21-2017 influenza virus vaccine, split virus (incl. purified surface antigen) Kenan Donald Other [facility] Other 04-08-2017 influenza virus vaccine, split virus (incl. purified surface antigen) Kenan Donald Other [facility] Other 04-08-2017 pneumococcal conjuga te vaccine, 13 valent Kenan Donald Other [facility] Other 12-29-2012 tetanus and diphther ia toxoids, adsorbed, preservative free, for adult use (5 Lf of tetanus toxoid and 2 Lf of diphtheria toxoid) Kenan Donald Other [facility] Other Payers Date Payer Category Payer Unknown [id number] 2015 Medicare [id number] 2015 Medicare xxxxxxxxxxx [id number] 1959 Self-pay 1959 Unknown [id number] 1950 Unknown [id number] [id number] 1950 Unknown [id number] 2.16.84 [id number] 1950 Unknown [id number] 2.16.84 [id number] 1950 Unknown [id number] 2.16.84 [id number] 1950 Unknown [id number] 2.16.84 [id number] 1950 Unknown [id number] 2.16.84 [id number] 1950 Unknown [id number] 2.16.84 [id number] Unknown [id number] 2.16.84 [id number] Social History Date Type Detail Facility Start: 02-05-2019 Tobacco smoking status [facility] Never smoker [employer] [facility]iaison Phone: Start: 02-05-2019 Alcohol intake Current drinke r of alcohol (finding) [employer] Liaison Phone: Start: 04-13-2013 Alcohol Comment rarely [facility] [employer] [facility] Work Phone: Sex Assigned At Not on file [facility] Work Phone: Sex Assigned At Sex Assigned At Bir th [facility] [employer] Other Medical Equipment Procedure Code Equipment Code Equipment Original Text Equi pment Identifier Dates [employer] Evaluation note 12-20-2022 Note Date & Type Note Facility 12-20-2022 Evaluation note Encounter Date Diagnosis Assessment Notes Dec, Medicare annual wellness visit, subsequent (ICD-10 - Z00.00) Personalized health advice was given to the beneficiary including a written plan for screenings discussed and provided. Advanced care planning reviewed and/or information given as requested. Additional counseling was provided here today in regards to, [ ]. The above visit was performed by [ ], under direct supervision of [ ]. Document reviewed and amended by provider signed below. Dec, Type 2 diabetes mellitus with hyperglycemia, without long-term current use of insulin (ICD-10 - E11.65) This patient is following a comprehensive diabetic treatment plan. They are checking their feet daily for calluses and nonhealing ulcers. They are being seen for yearly dilated eye examinations. Goals: SBP less than 130, LDL less than 100, FBS less than 140, A1C less than 7%. They are checking their BS daily, will which are reviewed at the office visit. Continue regular routine monitoring of A1C,] Microalbumin, Dilated eye exam and Foot exam Dec, Essential (primary) hypertension (ICD-10 - I10) This patient is instructed to consume a healthy, low-fat, low-salt diet. They are also encouraged to continue exercise to achieve/maintain a normal BMI. Dec, Gastroesophageal reflux disease with esophagitis without hemorrhage (ICD-10 - K21.00) Diet instructions: Smaller portions, avoid eating and laying flat, avoid eating or drinking prior to bedtime. Weight loss. Dec, Elevated cholesterol (ICD-10 - E78.00) Instructed on diet and exercise with continued statin therapy.Discussed the beneficial effects of lowering cholesterol in reducing the risk for cerebrovascular and cardiovascular disease. Dec, Overweight (ICD-10 - E66.3) This patient has been instructed on a low-fat, high-fiber diet. They are instructed to reduce calories, portion sizes and snacks. It is recommended that they exercise for 30 minutes, 3-5 times weekly. Dec, Right hip pain (ICD-10 - M25.551) Severe OA hip. f/u Orthopedics w/ plans on DANUTA this winter. ROM exercises, ice/heat and Tylenol Dec, Systolic murmur (ICD-10 - R01.1) No echocardiogram noted in past. Denies CP, dyspnea, palpitations or lightheadedness Denies hx of Rheumatic fever Dec, Screening mammogram for breast cancer (ICD-10 - Z12.31) Dec, High risk medication use (ICD-10 - Z79.899) [facility] Other Evaluation note 04-14-2022 Note Date & Type Note Facility 04-14-2022 Evaluation note Encounter Date Diagnosis Assessment Notes Mar, Essential (primary) hypertension (ICD-10 - I10) This patient is instructed to consume a healthy, low-fat, low-salt diet. They are also encouraged to continue exercise to achieve/maintai n a normal BMI. Mar, Type 2 diabetes mellitus with hyperglycemia, without long-term current use of insulin (ICD-10 - E11.65) This patient is following a comprehensive diabetic treatment plan. They are checking their feet daily for calluses and nonhealing ulcers. They are being seen for yearly dilated eye examinations. Goals: SBP less than 130, LDL less than 100, FBS less than 140, AC and A1C less than 7%. They are checking their BS daily, will which are reviewed at the office visit. Mar, Gastroesophageal reflux disease with esophagitis without hemorrhage (ICD-10 - K21.00) Diet instructions: Smaller portions, avoid eating and laying flat, avoid eating or drinking prior to bedtime. Weight loss. Mar, Elevated cholesterol (ICD-10 - E78.00) Diet and exercise. Recheck at wellness examination. Goal LDL < 100, if not met will discuss medical therapy Mar, Obesity (BMI 30.0-34.9) (ICD-10 - E66.9) This patient has been instructed on a low-fat, high-fiber diet. They are instructed to reduce calories, portion sizes and snacks. It is recommended that they exercise for 30 minutes, 3-5 times weekly. Mar, Other Diet and exercise w/o medication at this time. [facility] Other Evaluation note 03-29-2022 Note Date & Type Note Facility 03-29-2022 Evaluation note Encounter Date Diagnosis Assessment Notes Mar, IFG (impaired fasting glucose) (ICD-10 - R73.01) Mar, Essential (primary) hypertension (ICD-10 - I10) [facility] Other Evaluation note Note Date & Type Note Facility Evaluation note Diagnosis Screening mammogram for high-risk patient documented in this encounter [facility] Liaison Phone: Evaluation note Note Date & Type Note Facility Evaluation note No Information [facility] Other History general Narrative - Reported Note Date & Type Note Facility History general Narrative - Reported Type Medical History COVID-19 Medical History Impaired fasting glucose Medical History Contusion of left si de of back, initial encounter Medical History Malaise Medical History Fatigue Medical History Suspected sleep apnea Medical History Familial hypercholesterolemia Medical History Menopause Medical History Vitamin D deficiency Medical History Urinary incontinence Medical History Lichen sclerosus 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 brian Medical History Breast cancer screening by mammo gram Medical History Depression screening Medical History Obesity Medical History Essential hypertension Medical History Gastroesophageal ref lux disease with esophagitis without hemorrhage Medical History High risk medication use Surgical History EGD 2012 Surgical History colonoscopy Surgical History cholecystectomy 2010 Surgical History tonsillectomy Surgical History PHREESIA 09/2020 Hospitalization History SEE SURGICAL HX [facility] Other Summary Purpose Family History No Family History Records FoundNo Family History Records Found Advance Directives Documents on File Type Date Recorded Patient 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 Expl anation Advance Directives and Living Will Power of Authors Motivational Reason for Referral Status Reason Specialty Diagnoses / Procedures Referre d By Contact Referred To Contact Closed Diagnoses Screening mammogram for high-risk patient Procedures MARKO DIGITAL SCREEN W CAD BILATERAL HC MAMMO SCREENING INCL CAD IF PERF Andrew Mix MD [address] [place] [address] [address] [place] [address] Additional Source Comments INFORMATION SOURCE (unrecogn ized section and content) DATE CREATED AUTHOR 03/08/2019 [facility] DATE CREATED AUTHOR AUTHOR'S ORGANIZ ATION 04/13/2022 [facility] REASON FOR VISIT (unrecogniz ed section and content) A1C4 MONTH FOLLOW UP MBRefer ralMEDICARE WELLNESSLab resultsmamm results FOR RECORDS PERTAINING TO PATIENTS WHO ARE OR HAVE BEEN ENROLLED IN A CHEMICAL DEPENDENCY/SUBSTANCEABUSE PROGRAM, SOME INFORMATION MAY BE OMITTED. This clinical summary was aggregated from multiple sources. Caution should be exercised in using it in the provision of clinical care. This summary normalizes information from multiple sources, and as a consequence, information in this document may materially change the coding, format and clinical context of patient data. In addition, data may be omitted in some cases. CLINICAL DECISIONS SHOULD BE BASED ON THE PRIMARY CLINICAL RECORDS. [facility]. provides no warranty or guarantee of the accuracy or completeness of information in this document.
--- NOTE | 2023-05-06 10:43 | CA_ITS ---
Patient Name: JUDD YOUNG MR#: [id number] : 1950 Exam Date: 05/06/2023 Ordering Doctor: DR Kenan Donald D.O. ECHOCARDIOGRAM REPORT PROCEDURE: CA ECHO DOPPLER COMPLETE INDICATIONS: Systolic murmur, hypertension COMPARISON: None. DESCRIPTION: COMPLETE ECHOCARDIOGRAM Real-time transthoracic echocardiography with 2D, M-mode, spectral and color flow Doppler performed. QUALITY: Technical quality was good. 62 , 158#, BSA 1.73 m2 LEFT VENTRICLE: Normal chamber size. Proximal septal hypertrophy (sigmoid septum). Normal systolic function. LV EF: Normal left ventricular ejection fraction, (60%). DIASTOLIC: Diastolic function is indeterminate. ATRIAL SEPTUM: Visually appears intact. LEFT ATRIUM: Normal chamber size. RIGHT ATRIUM: Normal chamber size. RIGHT VENTRICLE: Normal chamber size. Normal right ventricular systolic function. TRICUSPID VALVE: Normal mobility and thickness. No stenosis with trivial regurgitation. Unable to assess right-sided pressures due to lack of measurable tricuspid regurgitation. MITRAL VALVE: Normal mobility and thickness. No evidence of mitral valve stenosis. There is no mitral annular calcification. No mitral regurgitation. AORTIC VALVE: Normal trileaflet appearance. No visible sclerosis. Normal leaflet mobility. No evidence of aortic valve stenosis. No aortic regurgitation. AORTIC ROOT: Normal diameter and appearance. PULMONIC VALVE: Normal thickness and mobility. No stenosis. Trivial regurgitation. PERICARDIUM: No evidence of pericardial effusion. IVC: Collapses with inspirations. IVC is normal in size. PLEURA: CONCLUSION: 1. Normal ventricular systolic function. 2. No significant valvular dysfunction. 3. No pericardial effusion. Adult Echocardiography Procedure Report Left Ventricle LVEDD (3.7 - 5.6 cm): 3.58 cm LVESD (2.2 - 4.0 cm): 2.15 cm LVIVS thickness (0.6 - 1.2 cm): 1.35 cm LVPW thickness (0.5 - 1.0 cm): 1.05 cm e': 0.08 m/s E - e': 9.50 LVOT Max Gradient: 2.40 mm[Hg] LVOT Area (cm2): 0.77 m/s Peak Velocity (LVOT): 0.77 m/s Mean Velocity (LVOT): 0.52 m/s LVOT Diameter 1.99 cm Left Atrium LA Volume Index (2D A2C): 20.49 ml/m2 Left Atrium Systolic Dimension: 3.93 cm Mitral Valve MV E to A Ratio: 0.80 Mitral Valve A-Wave Peak Velocity: 0.97 m/s Mitral Valve E-Wave Peak Velocity: 0.78 m/s Right Ventricle Aorta AO Root Diam: 3.22 cm Ascending Ao Diam: 3.03 cm Aortic Valve AoV Area (Peak Rajan): 2.00 cm2, 2.00 cm2 AoV Area (VTI): 2.20 cm2, 2.20 cm2 Peak Velocity(Antegrade Flow): 1.21 m/s Peak Gradient(Antegrade Flow): 5.85 mm[Hg] Mean Velocity(Antegrade Flow): 0.82 m/s Mean Gradient(Antegrade Flow): 3.04 mm[Hg] Velocity Time Integral: 26.98 cm Tricuspid Valve Pulmonic Valve Mean Gradient: 2.86 mm[Hg], 2.74 mm[Hg] Mean Velocity: 0.80 m/s, 0.78 m/s Peak Velocity: 1.07 m/s Peak Gradient: 4.74 mm[Hg], 4.39 mm[Hg] Right Atrium Right Atrium Systolic Pressure: 28.78 ml, 28.78 ml Dictated by: Francis Rivas M.D. on 05/07/2023 at 10:30 Approved by: Francis Rivas M.D. on 05/07/2023 at 10:33
== END 2023-05-06 10:02 | disposition home or self-care (01) ==
LOC: CARD 10:01
PROVIDERS: PCP Internal Medicine; Visit Provider Internal Medicine
DX: R01.1 Cardiac murmur, unspecified (principal); I10 Essential (primary) hypertension
CPT/HCPCS: 93306

== ENCOUNTER 2024-02-06 09:24 | Outpatient (OUT) | payer MEDICARE, SELFPAY ==
--- NOTE | 2024-02-06 09:26 | MM_ITS ---
Patient Name: JUDD YOUNG MR#: [id number] : 1950 Exam Date: 02/06/2024 Ordering Doctor: DR Kenan Donald D.O. RADIOLOGY REPORT PROCEDURE: MM TOMOSYNTHESIS SCREENING BI COMPARISON: MM TOMOSYNTHESIS SCREENING BI, 01/31/2023. MG MAMM SCREEN 3D [place]NN CAD, 01/27/2022. MG MAMM SCREEN 3D [place] CAD, 10/16/2020. MG MAMM SCREEN KA[place]NN W CAD, 11/06/2016. INDICATIONS: Screening Calculator Name NCI Breast Cancer Risk Assessment Tool 5 Year Breast Cancer Risk Not Reported. Lifetime Breast Cancer Risk Not Reported. Personal Breast Cancer No Personal Ovarian Cancer No Treatments None Family Cancers None LOCATION: [facility] BREAST COMPOSITION: The breasts are heterogeneously dense,which may obscure small masses. FINDINGS: DIAGNOSTIC CATEGORY 2--BENIGN FINDING: RIGHT BREAST: No significant suspicious finding. No significant change has occurred. LEFT BREAST: No significant suspicious finding. Stable coarse benign-appearing calcification within upper-outer quadrant. No significant change has occurred. RECOMMENDATIONS: ROUTINE MAMMOGRAM AND CLINICAL EVALUATION IN 12 MONTHS. PLEASE NOTE: A NORMAL MAMMOGRAM DOES NOT EXCLUDE THE POSSIBILITY OF BREAST CANCER. A CLINICALLY SUSPICIOUS PALPABLE LUMP SHOULD BE BIOPSIED. Dictated by: Jose Manuel Rodríguez M.D. on 02/06/2024 at 12:48 Approved by: Jose Manuel Rodríguez M.D. on 02/06/2024 at 14:15
== END 2024-02-06 09:25 | disposition home or self-care (01) ==
LOC: MAMMO 09:24
PROVIDERS: PCP Internal Medicine; Visit Provider Internal Medicine
DX: Z12.31 Encounter for screening mammogram for malignant neoplasm of breast (principal)
CPT/HCPCS: 77063; 77067

== ENCOUNTER 2024-07-11 08:49 | Outpatient (OUT) | payer MEDICARE, SELFPAY | END 2024-07-11 08:50 | disposition home or self-care (01) | LOC: RAD 08:50 | PROVIDERS: PCP Internal Medicine; Visit Provider Obstetrics & Gynecology | DX: M81.0 Age-related osteoporosis without current pathological fracture (principal); Z78.0 Asymptomatic menopausal state; M85.80 Other specified disorders of bone density and structure, unspecified site | CPT/HCPCS: 77080 ==

== ENCOUNTER 2024-08-30 06:47 | Outpatient (OUT) | payer MEDICARE, SELFPAY ==
--- OUTSIDE RECORDS SUMMARY | 2024-08-30 06:51 | XMS_ITS | CCD ---
Author Organization [facility] Care Team Providers Care Maintenance And Utilities Supervisor Name Role Phone KENAN DONALD Referring Unavailable ODILON, KENAN Wu Primary Care Unavailable Kenan Donald DO Primary Care Provider OLU, DR DORENE Levin Admitting Unavailable BALL, DR BREWER Primary Care Unavailable OLU, DR DORENE Levin Attending Unavailable OLU, DR DORENE Levin Consulting Unavailable FRANKLIN, WINDONITA Consulting Unavailable JASON, OCTAVIO Consulting Unavailable READER, [...] Unavailable BALL, DR BREWER Primary Care Unavailable KEELY, DR ONEIL Martinez Consulting Unavailable BALL, DR [...] Attending Unavailable BALL, DR BREWER Consulting Unavailable Odilon, Kenan Unavailable Kenan Donald MD Primary Care Provider Kenan Donald DO Primary Care Provider [phone] Kenan Donald DO Attending Provider Kenan Donald DO Primary Care Provider Kenan Donald Attending Unavailable Kenan Donald Primary Care Unavailable Kenan Donald Admitting Unavailable CAMILO, YUNI Tapia Attending Unavailable YUNI NUNO Referring Unavailable YOJANA PALOMINO Attending Unavailable YUNI NUNO Referring Unavailable YUNI NUNO Attending Unavailable RUSHER, YUNI S Attending Unavailable Allergies Allergy Classification Reported Allergen(s) Allergy Type Date of Onset Reaction(s) Facility (1 source) Sulfonamides (Antibiotic) Drug allergy (disorder) [facility] Repository (9 sources) Lisinopril Drug Allergy 01-03-20 cough [facility] (9 sources) Sulfamethoxazole Drug Allergy 01-03-20 Unknown, Unknown Reaction [facility] (6 sources) Sulfamethoxazole / Trimethoprim Drug Allergy Unknown Hello Agent Other (4 sources) Trimethoprim; Translations: [trimethoprim] Drug Allergy 01-03-20 Unknown Reaction [facility] (1 source) Lisinopril Drug Allergy 05-08-19 [facility] Repository (1 source) Sulfamethoxazole Drug Allergy 05-08-19 [facility] Repository Medications Current Medications Medication Drug Class(es) Dates [...] EVERY DAY AT BEDTIME 2 11/10/2017 Active betamethasone 3 mg/ml / betamethasone acetate 3 mg/ml injectable suspension (8 sources) Corticosteroid Start: 08-08-2024 End: 08-08-2024 betamethasone acetate-betamethas one sodium phosphate (Celestone) injection 3 mg Start: 08-08-2024 End: 08-08-2024 3 mg, Intra-articular, Once, On Tue08/08/24 at 0930, For 1 dose Start: 08-08-2024 End: 08-08-2024 betamethasone acetate-betame thasone sodium phosphate (Celestone) injection 3 mg Start: 08-08-2024 End: 08-08-2024 3 mg, Intra-articular, Once, On Tue08/08/24 at 0930, For 1 dose Start: 07-25-2024 End: 07-25-2024 betamethasone acetate-betame thasone sodium phosphate (Celestone) injection 3 mg Start: 07-25-2024 End: 07-25-2024 betamethasone acetate-betame thasone sodium phosphate (Celestone) injection 3 mg Start: 07-25-2024 End: 07-25-2024 3 mg, Intra-articular, Once, On Tue07/25/24 at 0930, For 1 dose Start: 07-25-2024 End: 07-25-2024 3 mg, Intra-articular, Once, On Tue07/25/24 at 0930, For 1 dose Blood-Glucose Meter (Onetouch Verio Reflect Meter) misc (1 source) Start: 07-03-2024 Blood-Glucose Meter (Onetouch Verio Reflect Meter) misc Active 0 .Route July 03, 2024 12:00am to test blood sugar daily clobetasol propionate 0.0005 mg/mg topical ointment (12 sources) Corticosteroid Start: 05-24-2023 End: 05-26-2023 Clobetasol 0.05 % ointment Active 1 APPLIC TOPICAL Twice daily as needed May 26, 2023 11:05am Clobetasol Propi linh 0.05 % 1 application Externally Twice a day Active losartan potassium 25 mg oral tablet (20 sources) Angiotensin 2 Receptor Bogdan Start: 03-23-2024 take 1 tablet by mouth once daily Losartan 25 mg tablet Active 25 MG PO Daily March 23, 2024 4:41pm Start: 09-27-2023 End: 03-23-2024 take 1 tablet by mouth once daily Losartan 25 mg tablet Discontinued 0 .ROUTE .COMPLEX September 27, 2023 8:40am March 23, 2024 4:42pm TAKE 1 TABLET BY MOUTH EVERY DAY Start: 05-24-2023 End: 09-27-2023 take 1 tablet by mouth once daily Losartan 25 mg tablet Discontinued 25 MG PO Daily May 24, 2023 1:00am September 27, 2023 8:41am meloxicam 15 mg oral tablet (15 sources) Nonsteroidal Anti-inflammatory Drug Start: 02-13-2024 take 1 tablet by mouth once daily as needed for pain Meloxicam 15 mg tablet Active 15 MG PO Daily as needed for pain February 13, 2024 6:20pm Start: 01-31-2024 End: 02-13-2024 take 1 tablet by mouth once daily Meloxicam 15 mg tablet Discontinued 0 .ROUTE .COMPLEX January 31, 2024 11:12am February 13, 2024 6:21pm TAKE 1 TABLET BY MOUTH EVERY DAY Start: 01-03-2024 End: 01-31-2024 take 1 tablet by mouth once daily Meloxicam 15 mg tablet Discontinued 15 MG PO Daily January 03, 2024 12:00am January 31, 2024 11:12am metFORMIN hydrochloride 500 mg oral tablet (20 sources) Biguanide Start: 11-04-2023 take 1 tablet by mouth once daily at mealtime Metformin 500 mg tablet Active 0 .ROUTE .COMPLEX 180 November 04, 2023 2:05pm TAKE 1 TABLET BY MOUTH EVERY MORNING AND AT SUPPER TIME WITH FOOD FOR 90 DAYS Start: 05-24-2023 End: 11-04-2023 take 1 tablet by mouth once daily Metformin 500 mg tablet Discontinued 500 MG PO Daily May 24, 2023 1:00am November 04, 2023 2:13pm metFORMIN (Gluco phage) 500 MG/5ML solution oral solution Active take 1 tablet by em th at mealtime metFORMIN HCl 500 MG TAKE 1 TABLET BY MOUTH IN THE MORNING AND AT SUPPER TIME WITH FOOD Active take 1 tablet by em th twice daily metFORMIN HCl 500 MG 1 tablet with a meal Orally twice a day Active Multiple Vitamins-Minerals (Centrum Silver 50+Women) tablet (11 sources) Multiple Vitamins-Minerals (Centrum Silver 50+Women) tablet Active nitrofurantoin, macrocrystals 25 mg / nitrofurantoin, monohydrate 75 mg oral capsule (1 source) Nitrofuran Antibacterial Start: 2024 take 1 capsule by mouth every twelve hours at mealtime Nitrofurantoin Monohyd/M-Cryst 100 mg capsule Active 100 MG PO Every 12 hours 10 July 23, 2024 12:00am must administer with a meal/food Omeprazole 20 mg capsule,delayed release(DR/EC) (2 sources) Start: 2024 Omeprazole 20 mg capsule,delayed release(DR/EC) Active 0 .ROUTE .COMPLEX May 02, 2024 7:53am TAKE 1 CAPSULE BY MOUTH EVERY DAY FOR 30 DAYS TAKE ON AN EMPTY STOMACH 30 MINUTES PRIOR TO BKFST Start: 05-02-2024 Omeprazole 20 mg capsule,delayed release(DR/EC) Active 0 .ROUTE .COMPLEX May 02, 2024 6:53am TAKE 1 CAPSULE BY MOUTH EVERY DAY FOR 30 DAYS TAKE ON AN EMPTY STOMACH 30 MINUTES PRIOR TO BKFST OneTouch SureSoft Lancing Dev - (6 sources) OneTouch SureSof t Lancing Dev - as directed Active OneTouch Verio - (6 sources) OneTouch Verio - as directed In Vitro Active OneTouch Verio w/Device (6 sources) OneTouch Verio w /Device as directed Active predniSONE 10 mg oral tablet (8 sources) Start: 06-13-2024 predniSONE (Deltasone) 10 MG tablet Indications: Primary osteoarthritis of right ankle , Posterior tibial tendinitis of right lower extremity Take twice daily for 5 days, then take once daily for 5 days. 15 tablet 06/13/2024 Active 0.25 mg, 0.5 mg dose 1.5 ml semaglutide 1.34 mg/ml pen injector (2 sources) Ozempic (0.25 or 0.5 MG/DOSE) 2 MG/1.5ML as directed Subcutaneous Active Semaglutide,0.25 or 0.5MG/DOS, (Ozempic, 0.25 or 0.5 MG/DOSE,) 2 MG/3ML solution pen-injector (11 sources) Semaglutide,0.25 or 0.5MG/DOS, (Ozempic, 0.25 or 0.5 MG/DOSE,) 2 MG/3ML solution pen-injector Active spironolactone 50 mg oral tablet (1 source) Aldosterone Antagonist Start: 01-23-2018 spironolactone (ALDACTONE) 50 MG tablet 1 ml triamcinolone acetonide 40 mg/ml prefilled syringe (12 sources) Corticosteroid Start: 08-08-2024 End: 08-08-2024 triamcinolone acetonide (Kenalog-40) injection 20 mg Start: 08-08-2024 End: 08-08-2024 20 mg, Intra-articular, Once , On Tue08/08/24 at 0930, For 1 dose Start: 08-08-2024 End: 08-08-2024 triamcinolone acetonide (Kt alog-40) injection 20 mg Start: 08-08-2024 End: 08-08-2024 20 mg, Intra-articular, Once , On Tue08/08/24 at 0930, For 1 dose Start: 07-25-2024 End: 07-25-2024 triamcinolone acetonide (Kt alog-40) injection 20 mg Start: 07-25-2024 End: 07-25-2024 triamcinolone acetonide (Kt alog-40) injection 20 mg Start: 07-25-2024 End: 07-25-2024 20 mg, Intra-articular, Once , On Tue07/25/24 at 0930, For 1 dose Start: 07-25-2024 End: 07-25-2024 20 mg, Intra-articular, Once , On Tue07/25/24 at 0930, For 1 dose Start: 01-03-2024 Triamcinolone Acetonide 0.1 % ointment Active 1 APPLIC TOPICAL Twice daily 45 January 03, 2024 12:00am Start: 03-01-2019 triamcinolone (KENALOG) 0.1 % ointment Indications: Vulvar irritation Use twice daily over affected areas as needed for vulvar irritation. Not to exceed 6 weeks of continuous usage 1 Tube 1 03/01/2019 Active Completed/Discontinued Medications Medication Drug Class(es) Dates Sig (Normalized) Sig (Original) minocycline 100 mg oral capsule (4 sources) Tetracycline-cla ss Drug Start: 01-03-2024 End: 01-03-2024 take 1 capsule by mouth once daily Minocycline 100 mg capsule Discontinued 100 MG PO Daily January 03, 2024 12:00am January 03, 2024 10:03am Start: 11-05-2017 take 1-2 capsules by mouth once daily minocycline (MINOCIN;DYNACIN) 50 MG capsule TAKE 1 TO 2 CAPSULES BY MOUTH EVERY DAY 11/05/2017 Active omeprazole 20 mg delayed release oral capsule (20 sources) Proton Pump Inhibitor Start: 05-09-2023 End: 05-02-2024 Omeprazole 20 mg capsule,delayed release(DR/EC) Discontinued 20 MG PO Daily 30 May 09, 2023 1:00am May 02, 2024 7:53am Take on an empty stomach, 30 minutes prior to bkfst Omeprazole 20 MG TAKE 1 CAPSULE DAILY ON EMPTY STOMACH FOLLOWED IN 30 MINUTES BY BKFST Active take 20 mg by mouth once daily O meprazole (PRILOSEC PO) Take 20 mg by mouth daily OTC 0 Active Semaglutide (5 sources) Start: 04-28-2024 End: 05-08-2024 inject 1 mg by subcutaneous injection every week Semaglutide (Ozempic) 1 mg/dose (4 mg/3 mL) pen injector Discontinued 1 MG SUBCUT every week 3 April 28, 2024 6:05pm May 08, 2024 11:12am Start: 04-28-2024 End: 05-08-2024 inject 1 mg by subcutaneous injection every week Semaglutide (Ozempic) 1 mg/dose (4 mg/3 mL) pen injector Discontinued 1 MG SUBCUT every week 3 April 28, 2024 5:05pm May 08, 2024 10:12am Start: 05-24-2023 End: 04-28-2024 inject 1 mg by subcutaneous injection every week Semaglutide (Ozempic) 1 mg/dose (4 mg/3 mL) pen injector Discontinued 1 MG SUBCUT every week May 24, 2023 1:00am April 28, 2024 6:06pm Start: 05-24-2023 End: 04-28-2024 inject 1 mg by subcutaneous injection every week Semaglutide (Ozempic) 1 mg/dose (4 mg/3 mL) pen injector Discontinued 1 MG SUBCUT every week May 24, 2023 12:00am April 28, 2024 5:06pm Start: 05-24-2023 inject 1 mg by subcu taneous injection every week Semaglutide (Ozempic) 1 mg/dose (4 mg/3 mL) pen injector Active 1 MG SUBCUT every week May 24, 2023 1:00am Problems Active Problems Problem Classification Problem Date Documented Da te Episodic/Chronic Acquired foot deformities (6 sources) Acquired varus deformity of right ankle; Translations: [Valgus deformity, not elsewhere classified, right ankle] 06-13-2024 Episodic Allergic reactions (6 sources) Urticaria; Translations: [Urticaria, unspecified] 05-08-2024 Episodic Diabetes mellitus with complications (15 sources) Type 2 diabetes mellitus with hyperglycemia; Translations: [Type 2 diabetes mellitus] Onset: 2 Chronic Diabetes mellitus without complication (1 source) Type 2 diabetes mellitus without complications; Translations: [TYPE 2 DM WITHOUT COMPLICATIONS] Onset: 2 Chronic Diabetes mellitus without complication (3 sources) Impaired fasting glycemia; Translations: [Impaired fasting glucose] Episodic Disorders of lipid metabolism (15 sources) Familial hypercholesterolemia; Translations: [Hypercholesterolemia] Onset: 2 Chronic Esophageal disorders (10 sources) Gastroesophageal reflux disease; Translations: [Gastro-esophageal reflux disease without esophagitis] 05-24-2023 Chronic Essential hypertension (18 sources) Essential (primary) hypertension; Translations: [Essential hypertension] Onset: 2 Chronic Genitourinary symptoms and ill-defined conditions (8 sources) Urinary incontinence; Translations: [Unspecified urinary incontinence] 03-27-2024 Chronic Genitourinary symptoms and ill-defined conditions (1 source) Dysuria; Translations: [Dysuria] Onset: 5 Episodic Heart valve disorders (1 source) Cardiac murmur, unspecified Episodic Malaise and fatigue (4 sources) Fatigue; Translations: [Other fatigue] Episodic Nutritional deficiencies (5 sources) Vitamin D deficiency; Translations: [Vitamin D deficiency, unspecified] 05-24-2023 Chronic Osteoarthritis (13 sources) Osteoarthritis of right hip joint; Translations: [Unilateral primary osteoarthritis, right hip] 05-24-2023 Chronic Other acquired deformities (2 sources) Equinus contracture of the ankle; Translations: [Contracture, right ankle] 06-13-2024 Chronic Other aftercare (2 sources) Other snf (current) drug therapy; Translations: [OTH [facility]DC CURRENT DRUG THERAPY] Onset: 2 Episodic Other aftercare (6 sources) H/O: high risk medication; Translations: [Other snf (current) drug therapy] Episodic Other connective tissue disease (2 sources) Other symptoms and signs involving the nervous system; Translations: [Suspected sleep apnea] Episodic Other connective tissue disease (4 sources) Tendinitis of right posterior tibial tendon; Translations: [Posterior tibial tendinitis, right leg] 06-13-2024 Episodic Other connective tissue disease (2 sources) Pain in right foot; Translations: [Pain in right foot] 06-13-2024 Episodic Other female genital disorders (6 sources) Leukoplakia of vulva; Translations: [Leukoplakia of vulva] Episodic Other female genital disorders (3 sources) Leukoplakia of vulva; 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] 05-24-2023 Episodic Other gastrointestinal disorders (2 sources) Dysphagia; Translations: [Dysphagia, unspecified] Episodic Other inflammatory condition of skin (2 sources) Brachioradial pruritus; Translations: [Pruritus, unspecified] 01-03-2024 Episodic Other nervous system disorders (2 sources) Difficulty walking; Translations: [Difficulty in walking, not elsewhere classified] 06-13-2024 Chronic Other non-traumatic joint disorders (4 sources) Pain in right hip joint; Translations: [Pain in right hip] Episodic Other non-traumatic joint disorders (1 source) Pain in right hip Episodic Other non-traumatic joint disorders (2 sources) Instability of joint of right ankle; Translations: [Other instability, right ankle] 06-13-2024 Episodic Other non-traumatic joint disorders (2 sources) Acute ankle pain; Translations: [Pain in right ankle and joints of right foot] 06-13-2024 Episodic Other non-traumatic joint disorders (2 sources) Pain of joint of right foot; Translations: [Pain in right ankle and joints of right foot] 07-25-2024 Episodic Other non-traumatic joint disorders (2 sources) Sinus tarsi syndrome of right ankle; Translations: [Pain in right ankle and joints of right foot] 08-08-2024 Episodic Other nutritional; endocrine; and metabolic disorders (1 source) Body mass index 30+ - obesity Onset: 5 03-22-2014 Chronic Other nutritional; endocrine; and metabolic disorders (6 sources) Obese class I; Translations: [Obesity, unspecified] Chronic Other nutritional; endocrine; and metabolic disorders (3 sources) Obesity, unspecified; Translations: [Obesity, unspecified] Chronic Other nutritional; endocrine; and metabolic disorders (3 sources) Obesity; Translations: [Obesity, unspecified] 05-24-2023 Chronic Other nutritional; endocrine; and metabolic disorders (1 source) Overweight Episodic Other screening for suspected conditions (not mental disorders or infectious disease) (11 sources) Encounter for screening mammogram for malignant neoplasm of breast; Translations: [Patient encounter status] Onset: 2 Episodic Prolapse 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al organs (2 sources) Midline cystocele; Translations: [Cystocele, midline] 03-27-2024 Chronic Residual codes; unclassified (2 sources) Asymptomatic menopausal state; Translations: [Menopause] Episodic Residual codes; unclassified (7 sources) Menopause present; Translations: [Asymptomatic menopausal state] 05-24-2023 Episodic Residual codes; unclassified (2 sources) Postmenopausal state; Translations: [Asymptomatic menopausal state] 03-27-2024 Episodic Superficial injury; contusion (7 sources) Contusion [...] esophagitis without hemorrhage] Other aftercare (1 source) 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; Translations: [APIARIST USE ORAL HYPOGLYCEMIC DX] Onset: 10-20-2021 Episodic [...] Test Name Value Interpretation Reference Range Facility Appearance of UrineOrdered B y: Kenan Donald on 07-23-2024 Appearance (U) Urine appearance Clear [facility] Bacteria [Presence] in Urine by AutomatedOrdered By: Kenan Donald on 07-23-2024 Bacteria Auto Ql (U) Bacteria [Presence] in Urine by Automated None Seen [facility] Bilirubin Test strip Ql (U)O rdered By: Kenan Donald on 07-23-2024 Bilirubin Ql (U) Bilirubin.total [Presence] in Urine by Test strip Negative [facility] Color Auto (U)Ordered By: Paco Donald on 07-23-2024 Color (U) Color of Urine by Auto Yellow Fi [facility] Dipstick and Microscopicon 0 07-23-2024 Appearance (U) Clear Normal Clear [facility] Comment on above: Order Comment: Name Collection Type:: Clean-Voided Midstream Performed By: #### A DDONUAPLUS #### [facility] [address] [id number] [place] Bacteria,Urine None Seen Normal None Seen [facility] Comment on above: Order Comment: Name Collection Type:: Clean-Voided Midstream Performed By: #### A DDONUAPLUS #### [facility] [address] [id number] [place] Bilirubin,Urine Negative Normal Negative [facility] Comment on above: Order Comment: Name Collection Type:: Clean-Voided Midstream Performed By: #### A DDONUAPLUS #### [facility] [address] [place] [address] [place] Color (U) Yellow Normal Yellow [facility] Comment on above: Order Comment: Name Collection Type:: Clean-Voided Midstream Performed By: #### A DDONUAPLUS #### [facility] [address] [place] [address] [place] Glucose Ql (U) Normal Normal Normal [facility] Comment on above: Order Comment: Name Collection Type:: Clean-Voided Midstream Performed By: #### A DDONUAPLUS #### [facility] [address] [place] [address] [place] Hyaline Casts,Urine None Normal 0-8 [facility] Comment on above: Order Comment: Name Collection Type:: Clean-Voided Midstream Performed By: #### A DDONUAPLUS #### [place] [address] [place] Ketones Ql (U) Negative Normal Negative [facility] Comment on above: Order Comment: Name Collection Type:: Clean-Voided Midstream Performed By: #### A DDONUAPLUS #### [place] [address] [place] Leukocyte esterase Test strip Ql (U) Negative Normal Negative [facility] Comment on above: Order Comment: Name Collection Type:: Clean-Voided Midstream Performed By: #### A DDONUAPLUS #### [place] [address] [place] Mucus,Urine Rare Normal [facility] Comment on above: Order Comment: Name Collection Type:: Clean-Voided Midstream Result Comment: PERF ORMED BY: [place] [id number] PATHOLOGIST ADVISOR CONSULTANT ESTHER CANNON M.D. Performed By: #### A DDONUAPLUS #### [place] [address] [place] Nitrite,Urine Negative Normal Negative [facility] Comment on above: Order Comment: Name Collection Type:: Clean-Voided Midstream Performed By: #### A DDONUAPLUS #### [place] [address] [place] Occult Blood,Urine Negative Normal Negative [facility] Comment on above: Order Comment: Name Collection Type:: Clean-Voided Midstream Performed By: #### A DDONUAPLUS #### [place] [address] [place] pH (U) 7.0 [pH] Normal 5.0-9.0 [facility] Comment on above: Order Comment: Name Collection Type:: Clean-Voided Midstream Performed By: #### A DDONUAPLUS #### [place] [address] [place] Protein,Urine Negative Normal Negative [facility] Comment on above: Order Comment: Name Collection Type:: Clean-Voided Midstream Performed By: #### A DDONUAPLUS #### [place] [address] [place] RBC,Urine 1-2 Normal 0-4 [facility] Comment on above: Order Comment: Name Collection Type:: Clean-Voided Midstream Performed By: #### A DDONUAPLUS #### [place] [address] [place] Specificy [place],Urine 1.012 Normal 1.001-1.030 [facility] Comment on above: Order Comment: Name Collection Type:: Clean-Voided Midstream Performed By: #### A DDONUAPLUS #### [address] Squamous Epithelial Cell,Urine 1-2 Normal 0-2 [facility] Comment on above: Order Comment: Name Collection Type:: Clean-Voided Midstream Performed By: #### A DDONUAPLUS #### [address] Urobilinogen,Urine Normal Normal Normal [facility] Comment on above: Order Comment: Name Collection Type:: Clean-Voided Midstream Performed By: #### A DDONUAPLUS #### [address] WBC,Urine 3-4 Normal 0-4 [facility] Comment on above: Order Comment: Name Collection Type:: Clean-Voided Midstream Performed By: #### A DDONUAPLUS #### [address] Epithelial cells.squamous [# /area] in Urine sediment by Automated countOrdered By: Kenan Donald on 07-23-2024 Epithelial cells.squamous Auto (Urine sed) [#/Area] Epithelial cells.squamous [#/area] in Urine sediment by Automated count 0-2 [facility] Erythrocytes [#/area] in Uri ne sediment by Automated countOrdered By: Kenan Donald on 07-23-2024 RBC Auto (Urine sed) [#/Area] Erythrocytes [#/area] in Urine sediment by Automated count 0-4 [facility] Glucose [Mass/volume] in Uri ne by Test stripOrdered By: Kenan Donald on 07-23-2024 Glucose Test strip (U) [Mass/Vol] Glucose [Mass/volume] in Urine by Test strip Normal [facility] Hemoglobin Test strip Ql (U) Ordered By: Kenan Donald on 07-23-2024 Hemoglobin Ql (U) Hemoglobin [Presence ] in Urine by Test strip Negative [facility] Hyaline casts [#/area] in Ur ine sediment by Automated countOrdered By: Kenan Donald on 07-23-2024 Hyaline casts Auto (Urine sed) [#/Area] Hyaline casts [#/area] in Urine sediment by Automated count 0-8 [facility] Ketones Test strip Ql (U)Ord ered By: Kenan Donald on 07-23-2024 Ketones Ql (U) Ketones [Presence] i n Urine by Test strip Negative [facility] Leukocyte esterase [Presence ] in Urine by Test stripOrdered By: Kenan Donald on 07-23-2024 Leukocyte esterase Test strip Ql (U) Leukocyte esterase [Presence] in Urine by Test strip Negative [facility] Leukocytes [#/area] in Urine sediment by Automated countOrdered By: Kenan Donald on 07-23-2024 WBC Auto (Urine sed) [#/Area] Leukocytes [#/area] in Urine sediment by Automated count 0-4 [facility] Mucus [Presence] in Urine by AutomatedOrdered By: Kenan Donald on 07-23-2024 Mucus Auto Ql (U) Mucus [Presence] in Urine by Automated [facility] Nitrite Test strip Ql (U)Ord ered By: Kenan Donald on 07-23-2024 Nitrite Ql (U) Nitrite [Presence] i n Urine by Test strip Negative [facility] Protein Test strip (U) [Mass /Vol]Ordered By: Kenan Donald on 07-23-2024 Protein (U) [Mass/Vol] Protein [Mass/volume] in Urine by Test strip Negative [facility] Specific gravity Test strip (U) [Rel density]Ordered By: Kenan Donald on 07-23-2024 Specific gravity (U) [Rel density] Specific gravity of Urine by Test strip 1.001-1.030 [facility] Urobilinogen Test strip (U) [Mass/Vol]Ordered By: Kenan Donald on 07-23-2024 Urobilinogen (U) [Mass/Vol] Urobilinogen [Mass/volume] in Urine by Test strip Normal [facility] pH Test strip (U)Ordered By: Kenan Donald on 07-23-2024 pH (U) pH of Urine by Test strip 5.0-9.0 [facility] No Panel Informationon 06-13 Radiology Study observation (narrative) [facility] [employer] XR Ankle - right 2 Viewson 0 06-13-2024 Imaging Result: AP, lateral views are weight-bearing. Decreased calcaneal inclination. First ray elevation. Large enthesophyte at the insertion of the Achilles tendon and plantar fascia. There are some degenerative changes of the medial tibiotalar joint and appears to be some lucency along the medial tibial shoulder which could indicate osteochondral defect. There are periarticular osteophytes and remodeling of the medial malleolus which could be consistent with degenerative changes or previous injury. Anterior osteophytes over the tibiotalar joint. Diffuse osteopenia. [facility] [employer] XR Foot - right 3 Viewson Imaging Result: AP, medial oblique, calcaneal axial views are weight-bearing. Approximately 5 degrees of rearfoot valgus. Degenerative changes of the naviculocuneiform, talonavicular joints as well as mild degenerative changes of the tarsometatarsal joints. No fractures or dislocations. Slight osteopenia. [facility] [employer] MG MAMM SCREEN 3D KAITLYNN CADon 01-27-2022 MG MAMM SCREEN 3D KAITLYNN CAD Patient: ROSALIND RAMEY Exam Date: 01/27/2022 : 1950 Gender:F Ordering : DR KENAN DONALD D.O. Admission #: [id number] Family : Order #: [id number] CLICK HERE TO VIEW EXAM RADIOLOGY REPORT [...] No Treatments None Family Cancers None LOCATION: [facility] BREAST COMPOSITION: Heterogeneously dense,which may obscure small [...] MD on 01/27/2022 at 13:12 Normal [facility] MICROALBUMIN URINEon 022 Albumin, Urine 22.7 ug/mL Normal Not Estab. [facility] Comment on above: Performed By: #### M ALBLC #### [facility] [address] [place] [address] Dr. Alex Gallego CBC AUTO DIFFon 12-15-2021 BASO # 0.0 103/ul Normal 0.0-0.1 [facility] Comment on above: Performed By: #### M ALBLC #### [facility] [address] [place] [address] Dr. Alex Gallego Basophils/100 WBC (Bld) 0.5 % Normal 0.2-2.0 [facility] Comment on above: Performed By: #### M ALBLC #### [facility] [address] [place] [address] Dr. Alex Gallego EO # 0.2 103/ul Normal 0.0-0.7 [facility] Comment on above: Performed By: #### M ALBLC #### [facility] [address] [place] [address] Dr. Alex Gallego Eosinophils/100 WBC (Bld) 2.2 % Normal 0.9-7.0 [facility] Comment on above: Performed By: #### M ALBLC #### [facility] [address] [place] [address] Dr. Alex Gallego Erythrocyte distribution width (RBC) [Ratio] 13.7 % Normal 11.0-15.0 [facility] Comment on above: Performed By: #### M ALBLC #### [facility] [address] [address] [address] Alex Gallego Hematocrit (Bld) [Volume fraction] 45.6 % Normal 36.0-48.0 [facility] Comment on above: Performed By: #### M ALBLC #### [facility] [address] [place] [address] Dr. Alex Gallego Hemoglobin (Bld) [Mass/Vol] 15.1 g/dL Normal 12.0-16.0 [facility] Comment on above: Performed By: #### M ALBLC #### [facility] [address] [place] [address] Dr. Alex Gallego IG # 0.02 10e3/ul Normal 0.00-0.03 [facility] Comment on above: Performed By: #### M ALBLC #### [facility] [address] [place] [address] Dr. Alex Gallego IG % 0.2 % Normal 0.0-0.5 [facility] Comment on above: Performed By: #### M ALBLC #### [facility] [address] [place] [address] Dr. Alex Gallego LYMPH # 3.7 103/ul Normal 1.2-3.8 [facility] Comment on above: Performed By: #### M ALBLC #### [facility] [address] [place] [address] Dr. Alex Gallego Lymphocytes/100 WBC (Bld) 46.1 % Normal 20.5-60.0 [facility] Comment on above: Performed By: #### M ALBLC #### [facility] [address] [place] [address] Dr. Alex Gallego MANUAL DIFF REQ NO Normal [facility] Comment on above: Performed By: #### M ALBLC #### [facility] [address] [place] [address] Dr. Alex Gallego MCH (RBC) [Entitic mass] 31.0 pg Normal 26.7-34.0 [facility] Comment on above: Performed By: #### M ALBLC #### [facility] [address] [address] [address] Alex Gallego MCHC (RBC) [Mass/Vol] 33.1 g/dL Normal 29.9-35.2 [facility] Comment on above: Performed By: #### M ALBLC #### [facility] [address] [place] [address] Dr. Alex Gallego MCV (RBC) [Entitic vol] 93.6 fL Normal 81.0-99.0 [facility] Comment on above: Performed By: #### M ALBLC #### [facility] [address] [place] [address] Dr. Alex Gallego MONO # 0.6 103/ul Normal 0.3-0.8 [facility] Comment on above: Performed By: #### M ALBLC #### [facility] [address] [place] [address] Dr. Alex Gallego Monocytes/100 WBC (Bld) 7.9 % Normal 1.7-12.0 [facility] Comment on above: Performed By: #### M ALBLC #### [facility] [address] [place] [address] Dr. Alex Gallego NEUT # 3.5 103/ul Normal 1.4-6.5 [facility] Comment on above: Performed By: #### M ALBLC #### [facility] [address] [place] [address] Dr. Alex Gallego Neutrophils/100 WBC (Bld) 43.1 % Normal 43.0-75.0 [facility] Comment on above: Performed By: #### M ALBLC #### [facility] [address] [place] [address] Dr. Alex Gallego Platelet mean volume (Bld) [Entitic vol] 9.5 fL Normal 9.5-13.5 [facility] Comment on above: Performed By: #### M ALBLC #### [facility] [address] [place] [address] Dr. Alex Gallego PLT 265 103/ul Normal 150-450 [facility] Comment on above: Performed By: #### M ALBLC #### [facility] [address] [place] [address] Dr. Alex Gallego RBC 4.87 106/ul Normal 4.20-5.40 [facility] Comment on above: Performed By: #### M ALBLC #### [facility] [address] [address] [address] Alex Gallego WBC 8.1 103/ul Normal 4.0-11.0 [facility] Comment on above: Performed By: #### M ALBLC #### [facility] [address] [place] [address] Dr. Alex Gallego GLYCOHEMOGLOBIN A1Con 2021 ADA RECOMMENDATION SEE BELOW Normal [facility] Comment on above: Result Comment: ADA RECOMMENDED LIMIT 4.0 - 6.0 ADA THERAPEUTIC TARGET < 7.0 ACTION SUGGESTED > 7.0 Performed By: #### M ALBLC #### [facility] [address] [place] [address] Dr. Alex Gallego Glucose [Mass/Vol] 117 mg/dL Normal [facility] Comment on above: Performed By: #### M ALBLC #### [facility] [address] [place] [address] Dr. Alex Gallego HbA1c (Bld) [Mass fraction] 5.7 % Normal 4.5-6.2 [facility] Comment on above: Performed By: #### M ALBLC #### [facility] [address] [place] [address] Dr. Alex Gallego LIPID PROFILEon 12-15-2021 CHOL-HDL RATIO NORM SEE BELOW Normal [facility] Comment on above: Result Comment: 3.3 - 4.4 LOW RISK 4.4 - 7.1 AVERAGE RISK 7.1 - 11.0 MODERATE RISK >11.0 HIGH RISK Performed By: #### L IPID, ALT, BMP #### [facility] [address] [place] [address] Dr. Alex Gallego Cholesterol [Mass/Vol] 195 mg/dL Normal <=200 [facility] Comment on above: Performed By: #### L IPID, ALT, BMP #### [facility] [address] [address] [address] Alex Gallego Cholesterol in HDL [Mass/Vol] 45 mg/dL Normal 40-60 [facility] Comment on above: Performed By: #### L IPID, ALT, BMP #### [facility] [address] [address] [address] Alex Gallego Cholesterol in LDL [Mass/Vol] 120.0 mg/dL Normal [facility] Comment on above: Performed By: #### L IPID, ALT, BMP #### [facility] [address] [address] [address] Alex Gallego Cholesterol.total/Ch olesterol in HDL [Mass ratio] 4.3 {ratio} Normal [facility] Comment on above: Performed By: #### L IPID, ALT, BMP #### [facility] [address] [place] [address] Dr. Alex Gallego HDL NORMAL > or = 60 mg/dl - LO W CARDIOVASCULAR RISK <40 mg/dl - HIGH CARDIOVASCULAR RISK Normal [facility] Comment on above: Performed By: #### L IPID, ALT, BMP #### [facility] [address] [address] [address] Alex Gallego LDL CALC NORMAL SEE BELOW Normal [facility] Comment on above: Result Comment: <100 mg/dl OPTIMAL 100 - 129 mg/dl NEAR OR ABOVE OPTIMAL 130 - 159 mg/dl BORDERLINE HIGH 160 - 189 mg/dl HIGH >190 mg/dl VERY HIGH Performed By: #### L IPID, ALT, BMP #### [facility] [address] [place] [address] Dr. Alex Gallego Triglyceride [Mass/Vol] 150 mg/dL Normal <=150 [facility] Comment on above: Performed By: #### L IPID, ALT, BMP #### [facility] [address] [address] [address] Alex Gallego VLDL CALC 30.0 mg/dL Normal [facility] Comment on above: Performed By: #### L IPID, ALT, BMP #### [facility] [address] [place] [address] Dr. Alex Gallego PROF CHEM 8 (BAS METB)on Anion gap [Moles/Vol] 13.6 mmol/L Normal [facility] Comment on above: Performed By: #### L IPID, ALT, BMP #### [facility] [address] [address] [address] Alex Gallego Calcium [Mass/Vol] 9.3 mg/dL Normal 8.5-10.1 [facility] Comment on above: Performed By: #### L IPID, ALT, BMP #### [facility] [address] [address] [address] Alex Gallego Chloride [Moles/Vol] 103 mmol/L Normal 98-107 [facility] Comment on above: Performed By: #### L IPID, ALT, BMP #### [facility] [address] [place] [address] Dr. Alex Gallego CO2 [Moles/Vol] 27.6 mmol/L Normal 21.0-32.0 [facility] Comment on above: Performed By: #### L IPID, ALT, BMP #### [facility] [address] [place] [address] Dr. Alex Gallego Creatinine [Mass/Vol] 0.75 mg/dL Normal 0.55-1.02 [facility] Comment on above: Performed By: #### L IPID, ALT, BMP #### [facility] [address] [place] [address] Dr. Alex Gallego EGFR-AF [place] >60 Normal >=60 [facility] Comment on above: Performed By: #### L IPID, ALT, BMP #### [facility] [address] [place] [address] Dr. Alex Gallego EGFR-NON AF [place] >60 Normal >=60 [facility] Comment on above: Performed By: #### L IPID, ALT, BMP #### [facility] [address] [place] [address] Dr. Alex Gallego Glucose [Mass/Vol] 126 mg/dL Critically high 74-106 [facility] Comment on above: Performed By: #### L IPID, ALT, BMP #### [facility] [address] [place] [address] Dr. Alex Gallego Potassium [Moles/Vol] 4.2 mmol/L Normal 3.5-5.1 [facility] Comment on above: Performed By: #### L IPID, ALT, BMP #### [facility] [address] [place] [address] Dr. Alex Gallego Sodium [Moles/Vol] 140 mmol/L Normal 136-145 [facility] Comment on above: Performed By: #### L IPID, ALT, BMP #### [facility] [address] [place] [address] Dr. Alex Gallego Urea nitrogen [Mass/Vol] 16.0 mg/dL Normal 7.0-18.0 [facility] Comment on above: Performed By: #### L IPID, ALT, BMP #### [facility] [address] [place] [address] Dr. Alex Gallego Urea nitrogen/Creatinine [Mass ratio] 21.3 mg/mg Normal [facility] Comment on above: Performed By: #### L IPID, ALT, BMP #### [facility] [address] [place] [address] Dr. Alex Gallego [facility] 12-15-2021 ALT [Catalytic activity/Vol] 58 U/L Normal 14-59 [facility] Comment on above: Performed By: #### L IPID, ALT, BMP #### [facility] [address] [place] [address] Dr. Alex Gallego XR RIBS LT PA Crystal 2 XR RIBS LT PA CH EXAMINATION: XR [...] ONEIL RIGGS Date: 2021-11-16 12:33 Normal [facility] CBC AUTO DIFFon 10-18-2021 BASO # 0.0 103/ul Normal 0.0-0.1 [facility] Comment on above: Performed By: #### C BC #### [facility] [address] [address] [address] Alex Gallego Basophils/100 WBC (Bld) 0.5 % Normal 0.2-2.0 [facility] Comment on above: Performed By: #### C BC #### [facility] [address] [address] [address] Alex Gallego EO # 0.2 103/ul Normal 0.0-0.7 [facility] Comment on above: Performed By: #### C BC #### [facility] [address] [address] [address] Alex Gallego Eosinophils/100 WBC (Bld) 2.1 % Normal 0.9-7.0 [facility] Comment on above: Performed By: #### C BC #### [facility] [address] [address] [address] Alxe Gallego Erythrocyte distribution width (RBC) [Ratio] 14.1 % Normal 11.0-15.0 [facility] Comment on above: Performed By: #### C BC #### [facility] [address] [place] [address] Dr. Alex Gallego Hematocrit (Bld) [Volume fraction] 43.1 % Normal 36.0-48.0 [facility] Comment on above: Performed By: #### C BC #### [facility] [address] [address] [address] Alex Gallego Hemoglobin (Bld) [Mass/Vol] 14.5 g/dL Normal 12.0-16.0 [facility] Comment on above: Performed By: #### C BC #### [facility] [address] [address] [address] Alex Gallego IG # 0.01 10e3/ul Normal 0.00-0.03 [facility] Comment on above: Performed By: #### C BC #### [facility] [address] [place] [address] Dr. Alex Gallego IG % 0.1 % Normal 0.0-0.5 [facility] Comment on above: Performed By: #### C BC #### [facility] [address] [place] [address] Dr. Alex Gallego LYMPH # 2.8 103/ul Normal 1.2-3.8 [facility] Comment on above: Performed By: #### C BC #### [facility] [address] [place] [address] Dr. Alex Gallego Lymphocytes/100 WBC (Bld) 36.8 % Normal 20.5-60.0 [facility] Comment on above: Performed By: #### C BC #### [facility] [address] [place] [address] Dr. Alex Gallego MANUAL DIFF REQ NO Normal [facility] Comment on above: Performed By: #### C BC #### [facility] [address] [place] [address] Dr. Alex Gallego MCH (RBC) [Entitic mass] 30.9 pg Normal 26.7-34.0 [facility] Comment on above: Performed By: #### C BC #### [facility] [address] [place] [address] Dr. Alex Gallego MCHC (RBC) [Mass/Vol] 33.6 g/dL Normal 29.9-35.2 [facility] Comment on above: Performed By: #### C BC #### [facility] [address] [place] [address] Dr. Alex Gallego MCV (RBC) [Entitic vol] 91.9 fL Normal 81.0-99.0 [facility] Comment on above: Performed By: #### C BC #### [facility] [address] [place] [address] Dr. Alex Gallego MONO # 0.6 103/ul Normal 0.3-0.8 [facility] Comment on above: Performed By: #### C BC #### [facility] [address] [place] [address] Dr. Alex Gallego Monocytes/100 WBC (Bld) 7.6 % Normal 1.7-12.0 [facility] Comment on above: Performed By: #### C BC #### [facility] [address] [place] [address] Dr. Alex Gallego NEUT # 4.0 103/ul Normal 1.4-6.5 [facility] Comment on above: Performed By: #### C BC #### [facility] [address] [place] [address] Dr. Alex Gallego Neutrophils/100 WBC (Bld) 52.9 % Normal 43.0-75.0 [facility] Comment on above: Performed By: #### C BC #### [facility] [address] [place] [address] Dr. Alex Gallego Platelet mean volume (Bld) [Entitic vol] 9.5 fL Normal 9.5-13.5 [facility] Comment on above: Performed By: #### C BC #### [facility] [address] [place] [address] Dr. Alex Gallego PLT 255 103/ul Normal 150-450 [facility] Comment on above: Performed By: #### C BC #### [facility] [address] [place] [address] Dr. Alex Gallego RBC 4.69 106/ul Normal 4.20-5.40 [facility] Comment on above: Performed By: #### C BC #### [facility] [address] [place] [address] Dr. Alex Gallego WBC 7.5 103/ul Normal 4.0-11.0 [facility] Comment on above: Performed By: #### C BC #### [facility] [address] [place] [address] Dr. Alex Gallego CTA CHEST WO W [...] RANDI FRANKLIN Date: 2021-10-18 08:45 Normal [facility] PROF 14(COMP METB)on 022 Albumin [Mass/Vol] 4.1 g/dL Normal 3.4-5.0 [facility] Comment on above: Performed By: #### C MP #### [facility] [address] [place] [address] Dr. Alex Gallego Albumin/Globulin [Mass ratio] 1.1 {ratio} Normal [facility] Comment on above: Performed By: #### C MP #### [facility] [address] [place] [address] Dr. Alex Gallego ALP [Catalytic activity/Vol] 85 U/L Normal 46-116 [facility] Comment on above: Performed By: #### C MP #### [facility] [address] [place] [address] Dr. Alex Gallego ALT [Catalytic activity/Vol] 69 U/L Critically high 14-59 [facility] Comment on above: Performed By: #### C MP #### [facility] [address] [place] [address] Dr. Alex Gallego Anion gap [Moles/Vol] 14.3 mmol/L Normal [facility] Comment on above: Performed By: #### C MP #### [facility] [address] [place] [address] Dr. Alex Gallego AST [Catalytic activity/Vol] 33 U/L Normal 15-37 [facility] Comment on above: Performed By: #### C MP #### [facility] [address] [place] [address] Dr. Alex Gallego Bilirubin [Mass/Vol] 0.5 mg/dL Normal 0.2-1.0 [facility] Comment on above: Performed By: #### C MP #### [facility] [address] [place] [address] Dr. Alex Gallego Calcium [Mass/Vol] 8.9 mg/dL Normal 8.5-10.1 [facility] Comment on above: Performed By: #### C MP #### [facility] [address] [place] [address] Dr. Alex Gallego Chloride [Moles/Vol] 106 mmol/L Normal 98-107 [facility] Comment on above: Performed By: #### C MP #### [facility] [address] [place] [address] Dr. Alex Gallego CO2 [Moles/Vol] 25.7 mmol/L Normal 21.0-32.0 [facility] Comment on above: Performed By: #### C MP #### [facility] [address] [place] [address] Dr. Alex Gallego Creatinine [Mass/Vol] 0.86 mg/dL Normal 0.55-1.02 [facility] Comment on above: Performed By: #### C MP #### [facility] [address] [place] [address] Dr. Alex Gallego EGFR-AF [place] >60 Normal >=60 [facility] Comment on above: Performed By: #### C MP #### [facility] [address] [address] [address] Alex Gallego EGFR-NON AF [place] >60 Normal >=60 [facility] Comment on above: Performed By: #### C MP #### [facility] [address] [place] [address] Dr. Alex Gallego Globulin (S) [Mass/Vol] 3.6 g/dL Normal [facility] Comment on above: Performed By: #### C MP #### [facility] [address] [place] [address] Dr. Alex Gallego Glucose [Mass/Vol] 144 mg/dL Critically high 74-106 [facility] Comment on above: Performed By: #### C MP #### [facility] [address] [place] [address] Dr. Alex Gallego Potassium [Moles/Vol] 4.0 mmol/L Normal 3.5-5.1 [facility] Comment on above: Performed By: #### C MP #### [facility] [address] [place] [address] Dr. Alex Galleog Protein [Mass/Vol] 7.7 g/dL Normal 6.4-8.2 [facility] Comment on above: Performed By: #### C MP #### [facility] [address] [place] [address] Dr. Alex Gallego Sodium [Moles/Vol] 142 mmol/L Normal 136-145 [facility] Comment on above: Performed By: #### C MP #### [facility] [address] [address] [address] Alex Glalego Urea nitrogen [Mass/Vol] 19.0 mg/dL Critically high 7.0-18.0 [facility] Comment on above: Performed By: #### C MP #### [facility] [address] [address] [address] Alex Gallego Urea nitrogen/Creatinine [Mass ratio] 22.1 mg/mg Normal [facility] Comment on above: Performed By: #### C MP #### [facility] [address] [address] [address] Alex Gallego XR CHEST 1 Von [...] disease is seen. Electronically authenticated by: BRUCE PAGE Date: 2021-10-18 07:17 Normal [facility] JOAN - TSHon 07-21-2021 TSH 1.848 uIU/mL Normal 0.470-4.680 [facility] Comment on above: Performed By: #### M ALBLC #### [facility] [address] [place] [address] Dr. Alex Gallego TSH RANGE SEE BELOW Normal [facility] Comment on above: Result Comment: <0.3 4 UIU/ml HYPERTHYROID 0.34-5.60 UIU/ml EUTHYROID >5.60 UIU/ml HYPOTHYROID Performed By: #### M ALBLC #### [facility] [address] [place] [address] Dr. Alex Gallego GLYCOHEMOGLOBIN A1Con 2021 ADA RECOMMENDATION SEE BELOW Normal [facility] Comment on above: Result Comment: ADA RECOMMENDED LIMIT 4.0 - 6.0 ADA THERAPEUTIC TARGET < 7.0 ACTION SUGGESTED > 7.0 Performed By: #### M ALBLC #### [facility] [address] [place], [place] [address] Dr. Alex Gallego Glucose [Mass/Vol] 123 mg/dL Normal [facility] Comment on above: Performed By: #### M ALBLC #### [facility] [address] [place], [place] [address] Dr. Alex Gallego HbA1c (Bld) [Mass fraction] 5.9 % Normal 4.5-6.2 [facility] Comment on above: Performed By: #### M ALBLC #### [facility] [address] [place], [place] [address] Dr. Alex Gallego MARKO DIGITAL SCREEN W [...] screening mammogram in 1 year is advised. [facility] Phone: EXAMINATION: BILATER AL DIGITAL SCREENING MAMMOGRAM, [...] architectural distortion significant interval changes are noted. [facility] Phone: [place] Incoming Radiant Results From [facility] - 03/07/2019 11:48 AM EST EXAMINATION: BILATERAL [...] screening mamm[facility] in 1 year is advised. [email or web address]: MARKO DIGITAL SCREEN W OR WO [...] Donald DO - Fax Final result Normal [facility] Vital Signs Date Time Vital Sign Value Performing Clinician Faci lity 08-08-2024 08:59-0400 Body height 157.5 cm Yuni Rusher DPM Work Phone: [facility] 08-08-2024 08:59-0400 Body mass index (BMI) [Ratio] 31.09 kg/m2 Yuni Rusher DPM Work Phone: [facility] 08-08-2024 08:59-0400 Body weight 77.11 kg Yuni Rusher DPM Work Phone: [facility] 07-25-2024 08:56-0400 Body height 157.5 cm Yuni Rusher DPM Work Phone: [facility] 07-25-2024 08:56-0400 Body mass index (BMI) [Ratio] 31.09 kg/m2 Yuni Rusher DPM Work Phone: [facility] 07-25-2024 08:56-0400 Body weight 77.11 kg Yuni Rusher DPM Work Phone: [facility] 05-08-2024 09:42-0500 Body height 154.94 cm [facility] 05-08-2024 09:42-0500 Body mass index (BMI) [Ratio] 31.2 kg/m2 [facility] 05-08-2024 09:42-0500 Body weight 74.95 kg [facility] 05-08-2024 09:42-0500 Diastolic blood pressure 89 mm[Hg] [facility] 05-08-2024 09:42-0500 Heart rate 86 /min [facility] 05-08-2024 09:42-0500 Respiratory rate 12 /min [facility] 05-08-2024 09:42-0500 Systolic blood pressure 139 mm[Hg] [facility] 03-27-2024 15:26-0500 Body mass index (BMI) [Ratio] 31.09 kg/m2 Yojana Nataprawira DO Work Phone: [facility] 03-27-2024 15:26-0500 Body weight 77.11 kg Yojana Nataprawira DO Work Phone: [facility] 03-27-2024 15:26-0500 Diastolic blood pressure 82 mm[Hg] Yojana Palomino DO Work Phone: [facility] 03-27-2024 15:26-0500 Systolic blood pressure 136 mm[Hg] Yojana Palomino DO Work Phone: [facility] 01-03-2024 10:01-0400 Body mass index (BMI) [Ratio] 31.2 kg/m2 [facility] 01-03-2024 10:01-0400 Diastolic blood pressure 89 mm[Hg] [facility] 01-03-2024 10:01-0400 Systolic blood pressure 139 mm[Hg] [facility] 01-03-2024 09:39-0400 Body height 154.94 cm [facility] 01-03-2024 09:39-0400 Body weight 75.01 kg [facility] 01-03-2024 09:39-0400 Heart rate 71 /min [facility] 01-03-2024 09:39-0400 Respiratory rate 12 /min [facility] 12-20-2022 10:00-0400 Body height 154.94 cm Kenan Ball Other [facility] [email or web address] Other 12-20-2022 10:00-0400 Body mass index (BMI) [Ratio] 29.28 kg/m2 Kenan Ball Other [facility] [email or web address] Other 12-20-2022 10:00-0400 Body weight 70.31 kg Kenan Ball Other [facility] [email or web address] Other 12-20-2022 10:00-0400 Diastolic blood pressure 82 mm[Hg] Kenan Ball Other [facility] [email or web address] Other 12-20-2022 10:00-0400 Respiratory rate 12 /min Kenan Ball Other [facility] [email or web address] Other 12-20-2022 10:00-0400 Systolic blood pressure 135 mm[Hg] Kenan Ball Other [employer] Other 04-14-2022 10:00-0500 Body height 154.94 cm Kenan Ball Other [employer] Other 04-14-2022 10:00-0500 Body mass index (BMI) [Ratio] 30.19 kg/m2 Kenan Ball Other [employer] Other 04-14-2022 10:00-0500 Body temperature 96.9 [degF] Kenan Ball Other [employer] Other 04-14-2022 10:00-0500 Body weight 72.49 kg Kenan Ball Other [employer] Other 04-14-2022 10:00-0500 Diastolic blood pressure 80 mm[Hg] Kenan Ball Other [employer] Other 04-14-2022 10:00-0500 SaO2% (BldA) [Mass fraction] 98 % Kenan Ball Other [employer] Other 04-14-2022 10:00-0500 Systolic blood pressure 126 mm[Hg] Kenan Ball Other [employer] Other Encounters Encounter Date Encounter Type Care Provider Facility Start: 08-08-2024 End: 08-08-2024 Moisés Nuno DPM Work Phone: [facility] Start: 08-08-2024 End: 08-08-2024 Moisés Nuno DPM Work Phone: [facility] Start: 08-08-2024 End: 08-08-2024 Office outpatient visit 25 minutes Yuni Nuno DPM Work Phone: [facility] Comment on above: 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); Primary osteoarthritis of right ankle; Valgus deformity, not elsewhere classified, right ankle Start: 08-08-2024 End: 08-08-2024 ambulatory YUNI NUNO Not Available Start: 07-25-2024 End: 07-25-2024 Bamboo flowsheet Yuni Nuno DPM Work Phone: [facility] Start: 07-25-2024 End: 07-25-2024 Bamboo flowsheet Yuni Nuno DPM Work Phone: [facility] Start: 07-25-2024 End: 07-25-2024 Office outpatient visit 25 minutes Yuni Nuno DPM Work Phone: [facility] Comment on above: Primary osteoarthrit is of right ankle (Primary Dx); Arthralgia of right foot; Valgus deformity, not elsewhere classified, right ankle; Posterior tibial tendinitis of right lower extremity Start: 07-25-2024 End: 07-25-2024 ambulatory YUNI NUNO Not Available Start: 07-23-2024 End: 07-23-2024 Patient encounter procedure Kenan Donald DO Work Phone: [facility] [place] Work Phone: Start: 07-23-2024 End: 07-23-2024 ambulatory Kenan Ball DO Work Phone: [facility] Work Phone: Start: 06-13-2024 End: 06-13-2024 Office outpatient new 45 minutes Yuni Nuno DPM Work Phone: [facility] Comment on above: Primary osteoarthrit is of right ankle (Primary Dx); Valgus deformity, not elsewhere classified, right ankle; Posterior tibial tendinitis of right lower extremity; Instability of right ankle joint; Acute right ankle pain; Right foot pain; Equinus contracture of right ankle; Difficulty walking Start: 06-13-2024 End: 06-13-2024 ambulatory YUNI NUNO Not Available Start: 06-13-2024 End: 06-13-2024 Bamboo flowsheet Yuni Nuno DPM Work Phone: [facility] Start: 06-13-2024 End: 06-13-2024 Bamboo flowsheet Yuni Nuno DPM Work Phone: [facility] Start: 05-08-2024 End: 05-08-2024 ambulatory [facility] Work Phone: Start: 05-08-2024 End: 05-08-[address] [facility] Work Phone: Start: 03-27-2024 End: 03-27-2024 Patient encounter status Yojana Palomino DO Work Phone: [facility] Work Phone: Start: 03-27-2024 End: 03-27-2024 Periodic preventive med est patient 65yrs& older Yojana Singhra DO Work Phone: [facility] Comment on above: Encounter for gyneco logical examination (general) (routine) with abnormal findings (Primary Dx); Cystocele, midline; Urge incontinence; Postmenopausal; Screening breast examination Start: 03-27-2024 End: 03-27-2024 ambulatory YOJANA PALOMINO Not Available Start: 03-27-2024 End: 03-27-2024 Bamboo flowsheet Yojana Singhra DO Work Phone: [facility] Start: 03-27-2024 End: 03-27-2024 Bamboo flowsheet Yojana Singhra DO Work Phone: [facility] Start: 01-03-2024 End: 01-03-2024 ambulatory [facility] Work Phone: Start: 01-03-2024 End: 01-03-[address] [facility] Work Phone: Start: 12-31-2023 Patient encounter procedure [facility] Start: 02-02-2023 End: 02-02-2023 ambulatory Kenan Donald Other [employer] Other Start: 02-02-2023 Telephone encounter Kenan Donald [facility] Start: 12-22-2022 End: 12-22-2022 ambulatory Kenan Donald Other [employer] Other Start: 12-22-2022 Telephone encounter Kenan Donald [facility] Start: 12-20-2022 End: 12-20-2022 ambulatory Kenan Donald Other [employer] Other Start: 12-20-2022 Patient encounter procedure Kenan Donald [facility] Start: 11-04-2022 End: 11-04-2022 ambulatory Kenan Donald Other [employer] Other Start: 11-04-2022 Telephone encounter Kenan Donald [facility] Start: 04-14-2022 End: 04-14-2022 ambulatory Kenan Donald Other [employer] Other Start: 04-14-2022 Office outpatient vi sit 25 minutes Kenan Donald [facility] Start: 04-08-2022 End: 04-09-[address] KENAN DONALD Facility:[facility] Start: 03-29-2022 End: 03-29-2022 ambulatory Kenan Donald Other [employer] Other Start: 03-29-2022 Telephone encounter Kenan Donald [facility] Start: 01-27-2022 End: 01-28-[address] KENAN DONALD Facility:[facility] Start: 12-15-2021 End: 12-16-[address] KENAN DONALD Facility:[facility] Start: 11-16-2021 End: 11-17-[address] KENAN DONALD Facility:[facility] Start: 10-18-2021 End: 10-18-[address] DORENE RAINES Facility: Start: 07-27-[address] KENAN DONALD Facili ty:[facility] Start: 07-20-2021 End: 07-21-2021 ambulatory NONE LISTED REQUEST Facility:[facility] Start: 03-05-2019 End: 03-08-2019 Patient encounter procedure KENAN DONALD [facility] Start: 03-05-2019 End: 03-07-2019 Subsequent hospital visit by physician [facility] Comment on above: Screening mammogram for high-risk patient Procedures Date Procedure Procedure Detail Performing Clinician Start: 06-13-2024 Radiologic examinati on ankle 2 views Yuni Nuno DPM Work Phone: Start: 03-05-2019 Screening mammograph y bi 2-view breast inc cad KENAN ODILON Start: 03-05-2019 End: 03-05-2019 Screening digital breast tomosynthesis bi Andrew Mix MD Work Phone: Depression screening Cornelius Donald Other Screening for malign ant neoplasm of breast Kenan Donald Other Plan of Treatment Date Care Activity Detail Author Start: 04-01-2025 End: 04-01-2025 Patient encounter procedure 04/01/2025 9:45 AM EST Office Visit [facility] [address] [place] [address] [address] Yojana Palomino DO [address] [address] [facility] Start: 08-08-2024 End: 08-08-2024 Patient encounter procedure [facility] Comment on above: Arrived Start: 07-25-2024 End: 07-25-2024 Patient encounter procedure [facility] Comment on above: Arrived Start: 06-13-2024 End: 06-13-2024 Patient encounter procedure 06/13/2024 2:15 PM EDT Office Visit [facility] [address] [place] [address] Yuni Nuno DPSourav [address] [place] [address] Arrived [facility] Comment on above: Arrived Start: 03-27-2024 End: 03-27-2024 Patient encounter procedure 03/27/2024 3:00 PM EST Office Visit [facility] [address] [place] [address] [address] Yojana Palomino DO [address] [address] Arrived [facility] Comment on above: Arrived Start: 03-06-2020 [facility] Phone: Start: 03-05-2020 Screening for malignant neoplasm of breast Mammogram [facility] Start: 09-10-2018 Annual Wellness Visi t (AWV) Annual Wellness Visit (AWV) [facility] Phone: Start: 2015 DEXA (modify frequen cy per FRAX score) DEXA (modify frequency per FRAX score) [facility] Phone: Start: 08-26-2012 Creatinine monitoring Creatinine mon itoring [facility] Phone: Start: 01-21-2000 Colon cancer screen colonoscopy Colon cancer screen colonoscopy [facility] Phone: Start: 01-21-2000 Shingles Vaccine (1 of 2) Shingles Vaccine (1 of 2) [facility] Phone: Start: 1990 Diabetes screen Diabetes screen [employer] Phone: Start: 1990 Lipid screen Lipid screen [employer] Work Phone: Start: 1961 DTaP/Tdap/Td vaccine (1 - Tdap) DTaP/Tdap/Td vaccine (1 - Tdap) [facility] Phone: Start: 1950 Hepatitis C screen Hepatitis C scree farrah [employer] Work Phone: Start: 1950 Potassium monitoring Potassium monit mamta [employer] Work Phone: Start: 1950 Screening for malignant neoplasm of colon [facility] DXA Skeletal system Views for bone density DEXA bone density Imaging Routine Postmenopausal Ordered: 03/27/2024 [facility] [employer] Work Phone: Comment on above: Ordered: 03/27/2024 MG Breast - bilatera l Screening [facility] Immunizations Immunization Date Immunization Notes Care Provider Smiley ying 01-03-2024 influenza, high dose seasonal, preservative-free [facility] 12-20-2022 influenza virus vaccine, unspecified formulation [facility] 12-20-2022 influenza, high dose seasonal, preservative-free Kenan Donald Other [facility] [email or web address] Other 12-16-2021 influenza virus vaccine, split virus (incl. purified surface antigen) Kenan Donald Other [facility] [email or web address] Other 12-16-2021 influenza virus vaccine, unspecified formulation [facility] 12-16-2021 Influenza, Seasonal, Quadrivalent, Adjuvanted Yuni Nuno DPM Work Phone: [facility] 12-16-2021 pneumococcal polysaccharide vaccine, 23 valent Kenan Donald Other [facility] 01-21-2021 zoster vaccine recombinant Yuni Nuno DPM Work Phone: [facility] 01-21-2021 zoster vaccine, live Benjmelyssa Donald Other [facility] 12-22-2020 influenza virus vaccine, split virus (incl. purified surface antigen) Kenan Donald Other [facility] [email or web address] Other 12-22-2020 influenza virus vaccine, unspecified formulation [facility] 10-10-2020 zoster vaccine recombinant Yuni Rusher DPM Work Phone: [facility] 10-10-2020 zoster vaccine, live Benjami farrah Donald Other [facility] 01-01-2020 influenza virus vaccine, split virus (incl. purified surface antigen) Kenan Donald Other [facility] [email or web address] Other 01-01-2020 influenza virus vaccine, unspecified formulation [facility] 01-08-2019 influenza, high dose seasonal, preservative-free Yuni Rusher DPM Work Phone: [facility] 05-08-2018 pneumococcal polysaccharide vaccine, 23 valent Yuni Rusher DPM Work Phone: [facility] 12-23-2017 Influenza Vaccine, unspecified formulation [facility] Work Phone: 12-23-2017 influenza virus vaccine, unspecified formulation Yuni Rusher DPM Work Phone: [facility] 12-21-2017 influenza virus vaccine, split virus (incl. purified surface antigen) Kenan Donald Other [facility] [email or web address] Other 12-21-2017 influenza virus vaccine, unspecified formulation [facility] 12-21-2017 Seasonal trivalent influenza vaccine, adjuvanted, preservative free Yuni Rusher DPM Work Phone: [facility] 04-08-2017 influenza virus vaccine, split virus (incl. purified surface antigen) Kenan Donald Other [facility] [email or web address] Other 04-08-2017 influenza virus vaccine, unspecified formulation [facility] 04-08-2017 pneumococcal conjuga te vaccine, 13 valent Kenan Donald Other [facility] 04-08-2017 pneumococcal polysaccharide vaccine, 23 valent Yuni Rusher DPM Work Phone: [facility] 04-08-2017 Seasonal trivalent influenza vaccine, adjuvanted, preservative free Yuni Rusher DPM Work Phone: [facility] 11-02-2016 influenza, injectabl e, quadrivalent, preservative free Yuni Ace DPM Work Phone: [facility] 03-18-2016 influenza, high dose seasonal, preservative-free Yuni Ace DPM Work Phone: [facility] 12-29-2012 tetanus and diphther ia toxoids, adsorbed, preservative free, for adult use (5 Lf of tetanus toxoid and 2 Lf of diphtheria toxoid) Kenan Donald Other [facility] Payers Date Payer Category Payer Medicare (Managed Care) EMILY PRAKASH [id number] 2017 Unknown [id number] 2015 Medicare [id number] 2015 Medicare [id number] 1959 Self-pay 1959 Unknown [id number] 1950 Unknown [id number] [id number]. 173 1950 Unknown [id number] [id number]. 593 1950 Unknown [id number] 2.16.840.1.655070.3.579.2. 593 1950 Unknown [id number] 2.16.840.1.394584.3.579.2. 593 1950 Unknown [id number] 2.16.840.1.419730.3.579.2. 593 1950 Unknown [id number] 2.16.840.1.169847.3.579.2. 593 1950 Unknown [id number] 2.16.840.1.315249.3.579.2. 593 1950 Unknown [id number] 2.16.840.1.621264.3.579.2. 1259 1950 Unknown [id number] 2.16.840.1.274744.3.579.2. 1259 1950 Unknown [id number] 2.16.840.1.312756.3.579.2. 1259 1950 Unknown [id number] 2.16.840.1.166175.3.579.2. 1259 1950 Unknown [id number] 2.16.840.1.584135.3.579.2. 1259 1950 Unknown [id number] 2.16.840.1.866227.3.579.2. 1259 Unknown [id number] 2.16.840.1.395759.3.579.2. 593 Unknown [id number] [id number]. 531 Social History Date Type Detail Facility Start: 02-05-2019 End: 03-27-2024 Tobacco smoking status [facility] Never smoker [facility] Phone: Start: 02-05-2019 Alcohol intake Current drin[email or web address] Start: 04-13-2013 Alcohol Comment [facility] Work Phone: Start: 1950 [email or web address] Start: 03-27-2024 End: 07-25-2024 Sex Assigned At [place] [email or web address] Other Start: 1950 Sex Assigned At Female F [facility] Tobacco smoking status NHIS Tobacco smoking consumption unknown [facility] Start: 03-27-2024 Tobacco use and exposure Smokeless tobacco non-user [facility] Start: 03-27-2024 End: 08-08-2024 Alcoholic beverage intake Ex-drinker (finding) [facility] Start: 03-27-2024 End: 07-25-2024 History of Social function [facility] Start: 05-08-2024 End: 07-24-2024 Sex Female (finding) [facility] Medical Equipment Procedure Code Equipment Code Equipment Origin al Text Equipment Identifier Dates OneTouch Lancets Blood Sugar Diagnostic (Onetouch Verio Test Strips) strip Start: 05-09-2023 Blood Sugar Diagnostic (Onetouch Verio Test Strips) strip Start: 05-09-2023 Blood Sugar Diagnostic (Onetouch Verio Test Strips) strip Start: 05-09-2023 Clinical Notes 03-29-2022 to 08-08-2024 Yuni Nuno, DPSourav - 08/08/2024 9:00 AM Oliva Nuno, DPM - 07/25/2024 9:00 AM Oliva Nuno, DPM - 06/13/2024 2:15 PM EDT Note Date & Type Note Facility 08-08-2024 History of Presen t illness Narrative Images from the original note were not included. Subjective Patient ID: Rosalind Ramey is a 74 y.o. female who presents for Follow-up (Established pt presents today for 2 week injection follow-up, right foot. Patient states the injection has helped with the medial side of her foot, but still having pain laterally. ). HPI Established patient returns to clinic for follow up evaluation of tibiotalar joint injection, right. Patient notes that her ankle is feeling much better. It took a couple of days to take effect but she states once it started working it is feeling much better. She unfortunately is having continued pain along the lateral aspect of the ankle. This continues with walking and standing. Review of Systems Constitutional: Positive for activity change. Negative for appetite change. Respiratory: Negative for chest tightness and shortness of breath. Cardiovascular: Positive for leg swelling. Negative for chest pain. Musculoskeletal: Positive for arthralgias and gait problem. Skin: Negative for color change and wound. Neurological: Positive for weakness. Negative for numbness. Psychiatric/Behavioral: Negative for agitation and behavioral problems. Hematological: Does not bruise/bleed easily. Endocrine: Negative for cold intolerance and heat intolerance. Allergic/Immunologic: Negative for immunocompromised state. Past medical History Past Medical History: Diagnosis Date Arthritis GERD (gastroesophageal reflux disease) Heart murmur Hypertension (CMS/HCC) Type 2 diabetes mellitus Medications Current Outpatient Medications: losartan (Cozaar) 25 MG tablet, 1 (one) time each day at the same time, Disp: , Rfl: meloxicam (Mobic) 15 MG tablet, Take 15 mg by mouth Daily, Disp: , Rfl: metFORMIN (Glucophage) 500 MG/5ML solution oral solution, , Disp: , Rfl: Multiple Vitamins-Minerals (Centrum Silver 50+Women) tablet, , Disp: , Rfl: omeprazole (PriLOSEC) [address] capsule, Take 20 mg by mouth in the morning., Disp: , Rfl: predniSONE (Deltasone) 10 MG tablet, Take twice daily for 5 days, then take once daily for 5 days., Disp: 15 tablet, Rfl: 0 Semaglutide,0.25 or 0.5MG/DOS, (Ozempic, 0.25 or 0.5 MG/DOSE,) 2 MG/3ML solution pen-injector, , Disp: , Rfl: No current facility-administered medications for this visit. Allergies Patient has no known allergies. Past Surgical History Past Surgical History: Procedure Laterality Date CHOLECYSTECTOMY CT ANGIOGRAM HEART CORONARY 09/27/2021 CT ANGIOGRAM TAVR 09/27/2021 OTHER SURGICAL HISTORY Right 06/24/2023 US ASPIRATION INJECTION INTERMEDIATE JOINT 2023 US ASPIRATION INJECTION INTERMEDIATE JOINT 2023 Family History Family History Problem Relation Name Age of Onset Diabetes Mother Marcela sullivan Heart disease Mother Marcela sullivan Cancer Father Sonu Sullivan Arthritis Brother Ricardo Sullivan Diabetes Brother Ricardo sullivan. Diabetes Sister Nayely mahmood Heart disease Brother Raúl sullivan Heart disease Brother Rob sullivan Objective Physical Exam HENT: Head: Normocephalic and atraumatic. Cardiovascular: Pulses: Normal pulses. Pulmonary: Effort: Pulmonary effort is normal. No respiratory distress. Abdominal: Palpations: There is no mass. Musculoskeletal: Cervical back: No rigidity. Comments: Weightbearing examination reveals pes planovalgus deformity of the right lower extremity. Right foot: Isolated and maximal tenderness noted along the sinus tarsi. Anterior, anteromedial and anterolateral ankle tenderness has greatly improved. Muscle strength 5/5 for all quadrants. Ankle range of motion smooth, nonpainful. Dorsiflexion limited 0 degrees with the knee extended, flexed. Inversion and eversion of the subtalar joint slightly limited but smooth. There is tenderness with forced inversion of the subtalar joint. No midfoot tenderness. Skin: Capillary Refill: Capillary refill takes less than 2 seconds. Findings: No lesion or rash. Neurological: Mental Status: She is alert. Comments: No loss of protective sensation, gross sensation intact. Psychiatric: Mood and Affect: Mood normal. Behavior: Behavior normal. Assessment/Plan ICD-10-CM 1. 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 Primary osteoarthritis of right ankle M19.071 3. Valgus deformity, not elsewhere classified, right ankle M21.071 Patient examined and evaluated. I reviewed previous imaging studies in detail and discussed my findings. She did respond very well to tibiotalar joint injection. This has helped her ankle pain significantly. Unfortunately she continues to have pain along the sinus tarsi which would be consistent with sinus tarsi notice in the setting of valgus deformity. On radiographs she does have some degenerative changes mostly of the tibiotalar joint but she also has some degenerative changes of the subtalar joint as well. Due to the continued tenderness along the sinus tarsi I recommend cortisone injection. Utilizing aseptic technique I injected 1 mL of 0.5 percent Marcaine plain, 20 mg of Kenalog and 3 mg of Celestone to the subtalar joint, right. Patient tolerated the procedure well and a band-aid was applied over the injection site. I have recommended 2 Tylenol and 2 Advil every 8 hours as needed for the next day to help reduce any steroid flare reaction. She will continue with daily stretching exercises, continued use of power step orthotics. She was dispensed another pair of power steps today. She will continue to use appropriate shoe gear. She will also continue to use the ASO brace during periods of heavy walking, standing or walking and standing on uneven ground. Follow up as needed. This note was created with the assistance of a speech recognition program. While intending to generate a timely document that accurately reflects the content of the visit, no guarantee can be provided that every grammatical or spelling mistake has been or will be identified or corrected. Thank you for your understanding. Yuni Nuno DPM documented in this encounter [facility] 07-25-2024 History of Presen t illness Narrative Images from the original note were not included. Subjective Patient ID: Rosalind Ramey is a 74 y.o. female who presents for Follow-up (Established pt presents today for 6 week fuv of right foot pain. Pt states her pain is about the same. Pt states she stopped wearing brace last week, states she felt better after taking if off. Pt was able to finish steroid taper. ). HPI Established patient returns to clinic for follow up evaluation of right ankle pain. She was treated with a an ASO brace for the last 6 weeks with minimal improvement. She states that she requires her 's help to get the brace on and a couple of days he was not home to put it on for her. She states that during these days she noticed that the ankle actually felt better without using the brace. Additionally she completed a steroid pack with minimal improvement. She states it helped very little and currently her pain is back to normal. Continues to have pain daily especially with walking, standing. Review of Systems Constitutional: Positive for activity change. Negative for appetite change. Respiratory: Negative for chest tightness and shortness of breath. Cardiovascular: Positive for leg swelling. Negative for chest pain. Musculoskeletal: Positive for arthralgias and gait problem. Skin: Negative for color change and wound. Neurological: Positive for weakness. Negative for numbness. Psychiatric/Behavioral: Negative for agitation and behavioral problems. Hematological: Does not bruise/bleed easily. Endocrine: Negative for cold intolerance and heat intolerance. Allergic/Immunologic: Negative for immunocompromised state. Past medical History Past Medical History: Diagnosis Date Type 2 diabetes mellitus Medications Current Outpatient Medications: losartan (Cozaar) 25 MG tablet, 1 (one) time each day at the same time, Disp: , Rfl: meloxicam (Mobic) 15 MG tablet, Take 15 mg by mouth Daily, Disp: , Rfl: metFORMIN (Glucophage) 500 MG/5ML solution oral solution, , Disp: , Rfl: Multiple Vitamins-Minerals (Centrum Silver 50+Women) tablet, , Disp: , Rfl: omeprazole (PriLOSEC) [address] capsule, Take 20 mg by mouth in the morning., Disp: , Rfl: predniSONE (Deltasone) 10 MG tablet, Take twice daily for 5 days, then take once daily for 5 days. (Patient not taking: Reported on 07/25/2024), Disp: 15 tablet, Rfl: 0 Semaglutide,0.25 or 0.5MG/DOS, (Ozempic, 0.25 or 0.5 MG/DOSE,) 2 MG/3ML solution pen-injector, , Disp: , Rfl: No current facility-administered medications for this visit. Allergies Patient has no known allergies. Past Surgical History Past Surgical History: Procedure Laterality Date CT ANGIOGRAM HEART CORONARY 09/27/2021 CT ANGIOGRAM TAVR 09/27/2021 OTHER SURGICAL HISTORY Right 06/24/2023 US ASPIRATION INJECTION INTERMEDIATE JOINT 2023 US ASPIRATION INJECTION INTERMEDIATE JOINT 2023 Family History No family history on file. Objective Physical Exam HENT: Head: Normocephalic and atraumatic. Cardiovascular: Pulses: Normal pulses. Pulmonary: Effort: Pulmonary effort is normal. No respiratory distress. Abdominal: Palpations: There is no mass. Musculoskeletal: Cervical back: No rigidity. Comments: Weightbearing examination reveals pes planovalgus deformity of the right lower extremity. Right foot: Isolated and maximal tenderness noted along the anteromedial ankle joint line and mild tenderness along the anterior ankle joint itself. Today during palpation of the posterior tibial tendon, navicular tuberosity and spring ligament there is minimal to no tenderness to palpation. Muscle strength 4/5 for inversion with very mild tenderness. Ankle range of motion smooth, nonpainful. Dorsiflexion limited 0 degrees with the knee extended, flexed. Inversion and eversion of the subtalar joint slightly limited but smooth. There is tenderness with forced inversion of the subtalar joint. No midfoot tenderness. Skin: Capillary Refill: Capillary refill takes less than 2 seconds. Findings: No lesion or rash. Neurological: Mental Status: She is alert. Comments: No loss of protective sensation, gross sensation intact. Psychiatric: Mood and Affect: Mood normal. Behavior: Behavior normal. Assessment/Plan ICD-10-CM 1. Primary osteoarthritis of right ankle M19.071 betamethasone acetate-betamethasone sodium phosphate (Celestone) injection 3 mg triamcinolone acetonide (Kenalog-40) injection 20 mg 2. Arthralgia of right foot M25.571 betamethasone acetate-betamethasone sodium phosphate (Celestone) injection 3 mg triamcinolone acetonide (Kenalog-40) injection 20 mg 3. Valgus deformity, not elsewhere classified, right ankle M21.071 4. Posterior tibial tendinitis of right lower extremity M76.821 Patient examined and evaluated. I reviewed previous imaging studies in detail and discussed my findings. Unfortunately she continues to have pain on a daily basis despite oral steroid and bracing. On radiographs she does have some degenerative changes especially along the anteromedial ankle joint. At this time I recommend intra-articular cortisone injection. This will help us to determine if the majority of her symptoms are coming from the ankle or potentially extra-articular. Additionally has a potential to give her significant relief. Informed consent was obtained. Utilizing aseptic technique I injected 1 mL of 0.5 percent Marcaine plain, 20 mg of Kenalog and 3 mg of Celestone to the tibiotalar joint, right ankle. Patient tolerated the procedure well and a band-aid was applied over the injection site. I have recommended 2 Tylenol and 2 Advil every 8 hours as needed for the next day to help reduce any steroid flare reaction. I would like to see her back in 2 weeks for follow up. I expect her to get significant relief from this injection and if she does not I will consider an MRI. If she is showing improvement we could consider physical therapy. This note was created with the assistance of a speech recognition program. While intending to generate a timely document that accurately reflects the content of the visit, no guarantee can be provided that every grammatical or spelling mistake has been or will be identified or corrected. Thank you for your understanding. Yuni Nuno DPM documented in this encounter [facility] 06-13-2024 History of Presen t illness Narrative Images from the original note were not included. Subjective Patient ID: Rosalind Ramey is a 74 y.o. female who presents for Foot Pain (74 yo [employer] presents today with right foot pain, ongoing for about 6 weeks, pt relates pain anterior ankle. NKI, pt relates maybe straining. Pt relates pain gets worse throughout the day, burning pain. Denies swelling. Pt ices foot, pt does take meloxicam but that doesn't seem to help, but does help when tylenol is added. SS: 8.5). HPI This is a new patient who presents to clinic with concern of right ankle pain. She describes pain along the anteromedial aspect of the right ankle for approximately 6 weeks. She denies any injury but states that she did have right hip replacement last year. She has been going through therapy for that and has noted some weakness along the hip flexors. The pain that she describes in her ankle is sharp, aching in nature. Seems to be worse with activity and describes burning pain at the end of the day. She takes meloxicam but otherwise has tried no treatment. Review of Systems Constitutional: Positive for activity change. Negative for appetite change. Respiratory: Negative for chest tightness and shortness of breath. Cardiovascular: Positive for leg swelling. Negative for chest pain. Musculoskeletal: Positive for arthralgias and gait problem. Skin: Negative for color change and wound. Neurological: Positive for weakness. Negative for numbness. Psychiatric/Behavioral: Negative for agitation and behavioral problems. Hematological: Does not bruise/bleed easily. Endocrine: Negative for cold intolerance and heat intolerance. Allergic/Immunologic: Negative for immunocompromised state. Past medical History Past Medical History: Diagnosis Date Type 2 diabetes mellitus ([facility]) Medications Current Outpatient Medications: losartan (Cozaar) 25 MG tablet, 1 (one) time each day at the same time, Disp: , Rfl: meloxicam (Mobic) 15 MG tablet, Take 15 mg by mouth Daily, Disp: , Rfl: metFORMIN (Glucophage) 500 MG/5ML solution oral solution, , Disp: , Rfl: Multiple Vitamins-Minerals (Centrum Silver 50+Women) tablet, , Disp: , Rfl: omeprazole (PriLOSEC) [address] capsule, Take 20 mg by mouth in the morning., Disp: , Rfl: predniSONE (Deltasone) 10 MG tablet, Take twice daily for 5 days, then take once daily for 5 days., Disp: 15 tablet, Rfl: 0 Semaglutide,0.25 or 0.5MG/DOS, (Ozempic, 0.25 or 0.5 MG/DOSE,) 2 MG/3ML solution pen-injector, , Disp: , Rfl: Allergies Patient has no known allergies. Past Surgical History Past Surgical History: Procedure Laterality Date CT ANGIOGRAM HEART CORONARY 09/27/2021 CT ANGIOGRAM TAVR 09/27/2021 OTHER SURGICAL HISTORY Right 06/24/2023 US ASPIRATION INJECTION INTERMEDIATE JOINT 2023 US ASPIRATION INJECTION INTERMEDIATE JOINT 2023 Family History No family history on file. Objective Physical Exam HENT: Head: Normocephalic and atraumatic. Cardiovascular: Pulses: Normal pulses. Pulmonary: Effort: Pulmonary effort is normal. No respiratory distress. Abdominal: Palpations: There is no mass. Musculoskeletal: Cervical back: No rigidity. Comments: Weightbearing examination reveals pes planovalgus deformity of the right lower extremity. Right foot: Isolated and maximal tenderness along the posterior tibial tendon posterior to the medial malleolus and just distal to the medial malleolus. She has spring ligament tenderness as well as tenderness to the navicular tuberosity. Muscle strength 4/5 for inversion with tenderness. She has some very minimal tenderness to the anteromedial ankle joint and deltoid. Minor tenderness to the sinus tarsi. Ankle range of motion smooth, nonpainful. Dorsiflexion limited 0 degrees with the knee extended, flexed. Inversion and eversion of the subtalar joint slightly limited but smooth. There is tenderness with forced inversion of the subtalar joint. No midfoot tenderness. Skin: Capillary Refill: Capillary refill takes less than 2 seconds. Findings: No lesion or rash. Neurological: Mental Status: She is alert. Comments: No loss of protective sensation, gross sensation intact. Psychiatric: Mood and Affect: Mood normal. Behavior: Behavior normal. XR foot 3+ views right Imaging Result: AP, medial oblique, calcaneal axial views are weight-bearing. Approximately 5 degrees of rearfoot valgus. Degenerative changes of the naviculocuneiform, talonavicular joints as well as mild degenerative changes of the tarsometatarsal joints. No fractures or dislocations. Slight osteopenia. XR ankle 2 views right Imaging Result: AP, lateral views are weight-bearing. Decreased calcaneal inclination. First ray elevation. Large enthesophyte at the insertion of the Achilles tendon and plantar fascia. There are some degenerative changes of the medial tibiotalar joint and appears to be some lucency along the medial tibial shoulder which could indicate osteochondral defect. There are periarticular osteophytes and remodeling of the medial malleolus which could be consistent with degenerative changes or previous injury. Anterior osteophytes over the tibiotalar joint. Diffuse osteopenia. Assessment/Plan ICD-10-CM 1. Primary osteoarthritis of right ankle M19.071 XR foot 3+ views right XR ankle 2 views right predniSONE (Deltasone) 10 MG tablet 2. Valgus deformity, not elsewhere classified, right ankle M21.071 XR foot 3+ views right XR ankle 2 views right 3. Posterior tibial tendinitis of right lower extremity M76.821 XR foot 3+ views right XR ankle 2 views right predniSONE (Deltasone) 10 MG tablet 4. 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 Acute right ankle pain M25.571 XR ankle 2 views right 6. Right foot pain M79.671 XR foot 3+ views right 7. Equinus contracture of right ankle M24.571 8. Difficulty walking R26.2 Patient was examined and evaluated. 3 views of the affected foot as well as 2 views of the affected ankle were taken in office today and I discussed my findings. Patient has severe pes planovalgus deformity which seems to be leading to the symptomatology. She does have some findings on radiographs to suggest degenerative changes of the tibiotalar joint with possible osteochondral lesion as well. This is likely contributing to some of her symptomatology but on examination her maximum tenderness is along the posterior tibial tendon. Discussed treatment in detail. I have recommended orthotic therapy to help control the foot structure and reduced valgus stresses across the midfoot. Patient already uses power step orthotics and I recommend that she continue to use them daily. I have recommended an ASO brace for stabilization and limitation of motion of the ankle and rearfoot. Patient agreed and was fitted for the appropriate brace. Goals of therapy include prevent further injury, reduced valgus instability of the hindfoot into increased ability to a hypermobile foot. Anticipated time of use - indefinite. At the time of dispensing it is suitable and not substandard. Patient is able to apply the brace independently. It is comfortable to walk and fits inside the shoe. I also discussed surgical reconstruction if conservative care is unsuccessful. I also recommend a steroid taper pack to reduce symptomatology, calm inflammation. Prescription was sent to patient's pharmacy. Follow up 6 weeks. Depending on clinical response I would consider cortisone injection. If she is doing much better we will initiate physical therapy exercises and transition out of the brace. This note was created with the assistance of a speech recognition program. While intending to generate a timely document that accurately reflects the content of the visit, no guarantee can be provided that every grammatical or spelling mistake has been or will be identified or corrected. Thank you for your understanding. Yuni Nuno DPM documented in this encounter [facility] 05-08-2024 Evaluation note Diagnosis Onset Date Resolution Essential (primary) hypertension acute May 08, 025 9:23am Gastroesophageal reflux disease with esophagitis without hemorrhage acute April 9:23am Obesity acute May 08, 2024 9:23am Type 2 diabetes mellitus with hyperglycemia acute April 9:23am Urticaria due to heat acute [facility] 2024 9:23am [facility] Work Phone: 1(147) 181-601001-07-2025 History of Present illness Narrative* Yojana Palomino DO - 03/27/2024 3:00 PM EST Images from the original note were not included. Yojana Palomino DO Obstetrics and Gynecology Name: Rosalind Ramey Date/Time of Service:03/27/2024 4:04 PM :1950 Age: 74 y.o. Subjective Rosalind Ramey is a 74 y.o. female who is here for a routine exam. Gynecologic Exam (Patient here for a yearly. Denies problems at this time. Completed Mammogram on 02/06/24-negative. DEXA scan order sent to [place]. colonoscopy 2020. Patient reports worsening urgeincontinence, soaking pads sometimes. Patient inquire Botox treatment for her incontinence) Control Contraception: post menopausal status. LMP: No LMP recorded. Patient is postmenopausal. Last Mammogram No results found for this or any previous visit. Current Outpatient Medications on File Prior to Visit Medication Sig Dispense Refill losartan (Cozaar) 25 MG tablet 1 (one) time each day at the same time metFORMIN (Glucophage) 500 MG/5ML solution oral solution Multiple Vitamins-Minerals (Centrum Silver 50+Women) tablet omeprazole (PriLOSEC) [address] capsule Take 20 mg by mouth in the morning. Semaglutide,0.25 or 0.5MG/DOS, (Ozempic, 0.25 or 0.5 MG/DOSE,) 2 MG/3ML solution pen-injector No current facility-administered medications on file prior to visit. Past Medical History: Diagnosis Date Type 2 diabetes mellitus (CMS/HCC) Past Surgical History: Procedure Laterality Date CT ANGIOGRAM HEART CORONARY 09/27/2021 CT ANGIOGRAM TAVR 09/27/2021 OTHER SURGICAL HISTORY Right 06/24/2023 US ASPIRATION INJECTION INTERMEDIATE JOINT 2023 US ASPIRATION INJECTION INTERMEDIATE JOINT 2023 No family history on file. Social History Tobacco Use Smoking status: Never Smokeless tobacco: Never Substance Use Topics Alcohol use: Not Currently Drug use: Never OB History No obstetric history on file. No Known Allergies Review of Systems Constitutional: Negative. Respiratory: Negative. Cardiovascular: Negative. Gastrointestinal: Negative. Genitourinary: Positive for frequency and urgency. Musculoskeletal: Negative. Skin: Negative. Neurological: Negative. Endocrine: Negative. Objective BP 136/82 Wt 170 lb BMI 31.09 kg/m Body mass index is 31.09 kg/m . Physical Exam Genitourinary: Urethral meatus normal. No lesions in the vagina. Genitourinary Comments: Valsalva revealed Stage II cystocele Right Labia: No lesions. Left Labia: No lesions. No vaginal discharge. Anterior vaginal prolapse present. Moderate vaginal atrophy present. Right Adnexa: not tender and no mass present. Left Adnexa: not tender and no mass present. No cervical lesion. Uterus is not tender. Uterus is anteverted. No urethral stress urinary incontinence with cough stress test present. Bladder is not tender. Rectum: No rectovaginal septum nodularity. Breasts: Right: No mass, nipple discharge, skin change or tenderness. Left: No mass, nipple discharge, skin change or tenderness. HENT: Head: Normocephalic and atraumatic. Mouth/Throat: Mouth: Mucous membranes are moist. Cardiovascular: Rate and Rhythm: Normal rate and regular rhythm. Pulmonary: Effort: Pulmonary effort is normal. Breath sounds: Normal breath sounds. Abdominal: General: Bowel sounds are normal. Palpations: Abdomen is soft. Musculoskeletal: General: No tenderness. Cervical back: Neck supple. Neurological: Mental Status: She is alert and oriented to person, place, and time. Skin: General: Skin is warm and dry. Psychiatric: Mood and Affect: Mood normal. Vitals and nursing note reviewed. Assessment/Plan 1. Encounter for gynecological examination (general) (routine) with abnormal findings (Primary) Breast and pelvic exam performed. Discussed findings. Patient to contact the office with any changes to her gynecological condition. 2. Cystocele, midline Discussed findings, stable. Stressed the importance of complete bladder emptying and avoiding long periods between voiding. Treatment/management options discussed: continue observation vs. Pessary use vs. Surgical treatment. Patient voiced understanding. Will consider all options and will continue observation at this time 3. Urge incontinence Will refer patient to Urologist at [facility] for further evaluation/management and possible Botox treatment 4. Postmenopausal DEXA scan order sent. Patient to schedule appointment. Will notify patient of result - DEXA bone density 5. Screening breast examination Mammogram uptodate ICD-10-CM 1. Encounter for gynecological examination (general) (routine) with abnormal findings Z01.411 2. Cystocele, midline N81.11 3. Urge incontinence N39.41 4. Postmenopausal Z78.0 DEXA bone density 5. Screening breast examination Z12.39 Follow up in about 1 year (around 03/27/2025) for Yearly. Yojana Palomino DO 03/27/2024 4:04 PM [id number] note* Encounter Date Diagnosis Assessment Notes Treatment Notes Treatment Clinical Notes Dec, Medicare annual wellness visit, subsequent [...] High risk medication use (ICD-10 - Z79.899) [facility] Other 01-25-2023 Evaluation note* Encounter Date Diagnosis Assessment Notes Treatment Notes Treatment Clinical Notes Mar, Essential (primary) hypertension (ICD-10 - I10) This patient is instructed to consume a healthy, low-fat, low-salt diet. They are also encouraged to continue exercise to achieve/maintain a normal BMI. Mar, Type 2 diabetes [...] 3-5 times weekly. Mar, Other Diet and exerci se w/o medication at this time. [facility] Other 01-09-2023 Evaluation note* Encounter Date Diagnosis Assessment Notes Treatment Notes Treatment Clinical Notes Mar, IFG (impaired fasting glucose) (ICD-10 - R73.01) Mar, Essential (primary) hypertension (ICD-10 - I10) [facility] Other Evaluation note* Diagnosis Screening mammogram for high-risk patient documented in this encounter [employer] Work Phone: evaluation noteNo InformationNort [employer] Other Evaluation note* Diagnosis Onset Date Resolution Status Essential (primary) hypertension acute Medicare annual wellness visit, subsequent acute Screening mammogram for breast cancer acute Type 2 diabetes mellitus with hyperglycemia acute [facility] Work Phone: Evaluation note* Diagnosis Encounter for gynecological examination (general) (routine) with abnormal findings- Primary Cystocele, midline Urge incontinence Postmenopausal Asymptomatic postmenopausal status (age-related) (natural) Screening breast examination Other screening breast examination documented in this encounter [facility] HealthcareEvaluation note* Diagnosis Onset Date Resolution Status Admit Date Essential (primary) hypertension acu te May 08, 2024 9:23am Gastroesophageal reflux dise ase with esophagitis without hemorrhage acute May 08 025 9:23am Obesity acute May 08, 2024 9:23am Type 2 diabetes mellitus wit h hyperglycemia acute May 08 2 025 9:23am Urticaria due to heat acute Apr 9:23am [facility] Work Phone: Evaluation note* Diagnosis Primary osteoarthritis of right ankle- Primary Valgus deformity, not elsewhere classified, right ankle Posterior tibial tendinitis of right lower extremity Instability of right ankle joint Acute right ankle pain Right foot pain Pain in soft tissues of limb Equinus contracture of right ankle Difficulty walking Difficulty in walking documented in this encounter [facility] HealthcareEvaluation note* Diagnosis Primary osteoarthritis of right ankle- Primary Arthralgia of right foot Valgus deformity, not elsewhere classified, right ankle Posterior tibial tendinitis of right lower extremity documented in this encounter [facility]* Diagnosis 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 Primary osteoarthritis of right ankle Valgus deformity, not elsewhere classified, right ankle documented in this encounter [facility] HealthcareHistory general Narrative - Reported* Type Description Date Medical History COVID-19 Medical History Impaired fasting glucose Medical History Contusion of left side of back, initial encounter Medical History Malaise [...] PHREESIA 09/2020 Hospitalization History SEE SURGICAL HX [facility] Other Summary Purpose Family History No Family History Records FoundNo Family History Records FoundNo Family History Records FoundNo Family History Records Found Advance Directives No Advanced Directives Records FoundDocuments on File Type Date Recorded 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 Advance Directives and Living Will Power of Anesthesia Director Advance Directive Response Recorded Date/ Time Advance Directives No April 27, 2023 11:42am Advance Directive Response Recorded Date/ Time Advance Directives No April 27, 2023 10:42am Reason for Referral Status Reason Specialty Diagnoses / Procedures Referre d By Contact Referred To Contact Closed Diagnoses Screening mammogram for high-risk patient Procedures MARKO DIGITAL SCREEN W CAD BILATERAL HC MAMMO SCREENING INCL CAD IF PERF Andrew Mix MD [address] [place] [address] Dr King [address] [place] [id number] Chief Complaint and Reason for Visit Chief Complaint Admit Date 2 month f/u May 08, 2024 9:23am R30.0 - Dysuria July 23, 2024 10:46a m Reason for Visit Admit Date Essential (primary) hypertension Februar y 2024 9:23am Gastroesophageal reflux dise ase with esophagitis without hemorrhage May 08, 2024 9:23am Obesity May 08, 2024 9:23am Type 2 diabetes mellitus with hyperglyce rudy May 08, 2024 9:23am Urticaria due to heat May 08 9:23am Chief Complaint wellness Reason for Visit Essential (primary) hypertension Medicare annual wellness visit, subsequent Screening mammogram for breast cancer Type 2 diabetes mellitus with hyperglycemia Chief Complaint Admit Date 2 month f/u May 08, 2024 9:23am Additional Source Comments INFORMATION SOURCE (unrecogn ized section and content) DATE CREATED AUTHOR 03/08/2019 [facility] DATE CREATED AUTHOR AUTHOR'S ORGANIZ ATION 04/13/2022 [facility] DATE CREATED AUTHOR AUTHOR'S ORGANIZ ATION 07/26/2024 [facility] DATE CREATED AUTHOR AUTHOR'S ORGANIZ ATION 08/14/2024 [facility] dical Specialists EPIC REASON FOR VISIT (unrecogniz ed section and content) Reason Comments Gynecologic Exam Patient here for a y early. Denies problems at this time. Completed Mammogram on 02/06/24-negative. DEXA scan order sent to [place]. colonoscopy 2020. Patient reports worsening urge incontinence, soaking pads sometimes. 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 NKI, pt relates maybe straining. Pt relates pain gets worse throughout the day, burning pain. Denies swelling. Pt ices foot, pt does take meloxicam but that doesn't seem to help, but does help when tylenol is added. SS: 8.5 Reason Comments Follow-up Established pt prese nts today for 6 week fuv of right foot pain. Pt states her pain is about the same. Pt states she stopped wearing brace last week, states she felt better after taking if off. Pt was able to finish steroid taper. Reason Comments Follow-up Established pt prese nts today for 2 week injection follow-up, right foot. Patient states the injection has helped with the medial side of her foot, but still having pain laterally. Care Teams (unrecognized sec tion and content) Team Status: Active Member Role Status Dates Kenan Donald DO Primary Care Provider Active Team Status: Inactive Member Role Status Dates Kenan Donald DO Primary Care Provide r, Attending Provider Active Start: January 03, 2024 End: January 03, 2024 Maintenance And Utilities Supervisor Relationship Specialty Start Date End Date Kenan Donald MD [address] [place] [id number] PCP - General Internal Medicine 03/27/24 Maintenance And Utilities Supervisor Relationship Specialty Start Date End Date Kenan Donald MD [address] [place] [phone] PCP - General Internal Medicine 03/27/24 Team Status: Inactive Member Role Status Dates Kenan Donald DO Primary Care Provide r, Attending Provider Active Start: May 08, 2024 End: May 08, 2024 Maintenance And Utilities Supervisor Relationship Specialty Start Date End Date Kenan Donald MD [address] [place] [phone] PCP - General Internal Medicine 03/27/24 Maintenance And Utilities Supervisor Relationship Specialty Start Date End Date Kenan Donald MD [address] [place] [phone] PCP - General Internal Medicine 03/27/24 Team Status: Inactive Member Role Status Dates Kenan Donald DO Primary Care Provide r, Attending Provider Active Start: July 23, 2024 End: July 23, 2024 Maintenance And Utilities Supervisor Relationship Specialty Start Date End Date Kenan Donald DO [address] [place] [phone] PCP - General Internal Medicine 03/27/24 Maintenance And Utilities Supervisor Relationship Specialty Start Date End Date Kenan Donald DO [address] [place] [address] PCP - General Internal Medicine 03/27/24 Maintenance And Utilities Supervisor Relationship Specialty Start Date End Date Kenan Donald DO [address] [place] [phone] PCP - General Internal Medicine 03/27/24 Goals (unrecognized section and content) Goals may be documented in a n alternate section FOR RECORDS PERTAINING TO PATIENTS WHO ARE [...] BE BASED ON THE PRIMARY CLINICAL RECORDS. [facility]. provides no warranty or guarantee of the accuracy or completeness of information in this document.
--- OUTSIDE RECORDS SUMMARY | 2024-08-30 06:52 | XMS_ITS | Encounter Summary ---
Author Organization [facility] Address [address] [place] [address] Care Team Providers Care Composite Worker Name Role Phone Kenan Donald DO Primary Care Provider [phone] Encounter Details Date Type Department Care Team (Late st Contact Info) Description 07/31/2024 Results Follow-Up [facility] [address] [facility] [address] [address] Yojana Palomino DO [address] [address] Social History Tobacco Use Types Packs/Day Years Used Date Smoking Tobacco: Never Smokeless Tobacco: Never Alcohol Use Standard Drinks/Week Comments Not Currently 0 (1 standard drink = 0.6 oz pur e alcohol) Comments No Sex and Gender Information Value Date Recorded Sex Assigned at Not on file Legal Sex Female 7:26 PM EDT Gender Identity Not on file Sexual Orientation Not on file documented as of this encounter Plan of Treatment Upcoming Encounters Date Type Department Care Team (Late st Contact Info) Description 04/01/2025 9:45 AM EST Office Visit [facility] [address] [facility] [address] [address] Yojana Palomino DO [address] [address] documented as of this encounter Visit Diagnoses Not on filedocumented in this encounter Care Teams Composite Worker Relationship Specialty Start Date End Date Kenan Donald DO [address] [place] [phone] PCP - General Internal Medicine 03/27/24 documented as of this encounter
--- OUTSIDE RECORDS SUMMARY | 2024-08-30 06:52 | XMS_ITS | Clinical Summary ---
Author Organization [facility] Address [id number] [address] [place] [address] Care Team Providers Care Patent Drafter Name Role Phone Kenan Donald DO Primary Care Provider [phone] Allergies No known active allergies Medications metFORMIN (GLUCOPHAGE) 500 mg tablet Take 1 tablet (500 mg total) by mouth daily with breakfast. Active losartan (COZAAR) 25 mg tablet Take 1 tablet (25 mg total) by mouth in the morning. Active omeprazole (PriLOSEC) 20 mg capsule Take 1 capsule (20 mg total) by mouth in the morning. Active MULTIVITAMIN ORAL Take by mouth daily. Active OZEMPIC 1 mg/dose (4 mg/3 mL) pen injector once a week. -last dose preop 06/02/23. DO NOT TAKE FOR FIRST TWO WEEKS AFTER SURGERY 4 Active ondansetron (ZOFRAN) 4 mg tablet Take 1 tablet (4 mg total) by mouth every 8 (eight) hours as needed for nausea or vomiting. 20 tablet 4 Active ONETOUCH VERIO TEST STRIPS strip USE TO CHECK BLOOD SUGAR AT HOME EVERY DAY 4 Active clindamycin-virginia zoyl peroxide (DUAC) gel Apply 1 Application topically. 4 Active semaglutide (OZEMPIC) 1 mg/dose (4 mg/3 mL) pen injector Inject 1 mg under the skin once a week. Active oxyCODONE (ROXICODONE) 5 mg immediate release tabletIndicatio ns:Post-operati ve pain Take 1 tablet (5 mg total) by mouth every 6 (six) hours as needed for pain. Max Daily Amount: 20 mg 20 tablet 4 Active Additional Information Patient not taking.Reported on 01/09/2024 methylPREDNISol one (MEDROL, ARTHUR,) 4 mg tablet follow package directions 21 tablet 4 Active Additional Information Patient not taking.Reported on 06/19/2024 meloxicam (MOBIC) 15 mg tablet Take 1 tablet (15 mg total) by mouth. 4 Active Active Problems Problem Noted Date Diagnosed Date Type 2 diabetes mellitus with hyperglycemia 12/20 Obesity 01/09/2024 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 01/09/2024 Gastroesophageal reflux dise ase with esophagitis without hemorrhage 01/09/2024 Essential (primary) hypertension 01/09/2024 Elevated cholesterol 01/09/2024 Vitamin D deficiency 01/09/2024 Primary osteoarthritis of right hip 04/20/2023 Vulvar dystrophy 07/19/2014 Encounters Date Type Department Care Team Description 06/19/2024 10:10 AM EDT Office Visit [facility] [address] [place] [address] Sergio Gross MD S/P total right hip arthroplasty (Primary Dx) 06/19/2024 10:05 AM EDT Ancillary Procedure [facility] [address] [place] [address] Right hip pain 06/19/2024 Travel 06/18/2024 Travel from Last 3 Months Family History Medical History Relation Name Comments Diabetes Brother 1 Kidney disease Brother 1 Heart disease Brother 2 Heart disease Brother 3 Cancer Father Pulmonary embolism Maternal Grandfather Heart attack Maternal Grandmother Stroke Maternal Grandmother Anesthesia problems Mother n and v Heart disease Mother Rheum arthritis Paternal Grandfather Pancreatitis Paternal Grandmother Diabetes Sister 1 Josr's thyroiditis Sister 1 Nephrolithiasis Sister 2 Bleeding Disorder Neg Hx Breast cancer Neg Hx Colon cancer Neg Hx Ovarian cancer Neg Hx Relation Name Status Comments Brother 1 Brother 2 Alive Brother 3 Alive Father Maternal Grandfather Maternal Grandmother Mother Paternal Grandfather Paternal Grandmother Sister 1 Alive Sister 2 Alive Sister 3 Alive Social History Tobacco Use Types Packs/Day Years Used Date Smoking Tobacco: Never Smokeless Tobacco: Never Tobacco Cessation:Counseling Given: Not Answered Alcohol Use Standard Drinks/Week Comments Yes 0 (1 standard drink = 0.6 oz pur e alcohol) very limited Childcare Answer Date Recorded Childcare Unknown 08/30/2018 Employment Answer Date Recorded Employment Unknown 08/30/2018 Hunger Screening Answer Date Recorded Within the past 12 months we worried whether our food would run out before we got money to buy more. Never True 05/27/2023 Within the past 12 months th e food we bought just didn't last and we didn't have money to get more. Never True 05/27/2023 Comments No Sex and Gender Information Value Date Recorded Sex Assigned at Not on file Legal Sex Female 12:12 PM EDT Gender Identity Not on file Sexual Orientation Not on file Last Filed Vital Signs Vital Sign Reading Time Taken Comments Blood Pressure 134/74 06/24/2023 5:18 PM EDT Pulse 100 06/24/2023 5:18 PM EDT Temperature 36.2 C (97.2 F) 06/24/2023 5:18 PM EDT Respiratory Rate 16 06/24/2023 5:18 PM EDT Oxygen Saturation 97% 06/24/2023 5:18 PM EDT Inhaled Oxygen Concentration - - Weight 73 kg (161 lb) 06/19/2024 10:31 AM EDT Height 154.9 cm (5' 1 ) 06/19/2024 10:31 AM EDT Body Mass Index 30.42 06/19/2024 10:31 AM EDT Plan of Treatment Health Maintenance Due Date Last Done Comments Diabetic Ophthalmology Exam 1950 Depression Screening 1962 Adult BMI Follow Up Plan 01/21/1968 Diabetic Foot Exam 01/21/1968 DTaP,Tdap and Td Vaccines (1 - Tdap) 1969 Fall Risk Screening 2015 COVID-19 Vaccine (3 2023-2 5 season) 2023 12/18/2021, 01/06/2021 Influenza Vaccine 11/19/2024 01/03/2024, , 01/08/2019, Additional history exists Adult BMI Screening 06/19/2025 06/19/2024 Tobacco Screening 06/19/2025 06/19/2024 Zoster (Shingles) Vaccine Completed 01/21/2021, Goals Goal Patient Goal Type Associated Problems Recent Progress Patient-Stated? Author improve mobility General Yes Jolene Mendoza, RN Note: Evaluation of progress towards goal: Maximize work with PT at discharge to strengthen right hip Medical Devices Implanted Type Area Heat Treating Operator Device Identifier Shelf Expiration Date Model / Serial / Lot Shell Actb 50mm Hip Lmt Hl Clr Cd Pps G7 D Hmsphr - [id number] Implanted:Qt y: 1 on 06/24/2023 by Sergio Gross MD at [facility] Orthopedic Implant Right: Hip [employer] [id number] 04/24/2033 [id number] / / [id number] Liner Actb 36mm D Vivacit-E Lum G7 Hip Strl Lf - [id number] Implanted:Qt y: 1 on 06/24/2023 by Sergio Gross MD at [facility] Orthopedic Implant Right: Hip [employer] [id number] 01/17/2028 [id number] / / [id number] Stem Fem 140mm 10mm 133d Hi Os Tpr Tprlk Pps Ti Hip Prft - [id number] Implanted:Qt y: 1 on 06/24/2023 by Sergio Gross MD at [facility] Orthopedic Implant Right: Hip [employer] [id number] 06/03/2032 [id number] / / [id number] Sleeve Hip -3mm Os Tpr G7 Blx D Opt Ti Centering Ty 1 Rpl [id number] - [id number] Implanted:Qt y: 1 on 06/24/2023 by Sergio Gross MD at [facility] Orthopedic Implant Right: Hip [employer] [id number] 12/14/2032 [id number] / / [id number] Head Fem 36mm G7 Blx D Biolox Opt Hip Rpl [id number] - [id number] Implanted:Qt y: 1 on 06/24/2023 by Sergio Gross MD at [facility] Orthopedic Implant Right: Hip [employer] [id number] 09/29/2032 [id number] / / [id number] Screw Bn 30mm 6.5mm St Actb Adolfo Trlg Strl Rpl [id number] - [id number] Implanted:Qt y: 1 on 06/24/2023 by Sergio Gross MD at [facility] Screw Right: Hip [employer] [id number] 01/04/2033 [id number] / / [id number] Procedures Procedure Name Priority Date/Time Associated Diagnosis Comments XR HIP RT 2-3 VIEWS W OR WO PELVIS Routine 06/19/2024 10:07 AM EDT Right hip pain from Last 3 Months Results * X-ray hip right 2-3 views with or without pelvis (06/19/2024 10:07 AM EDT) Anatomical Region Laterality Modality Lower Extremities, MSK, Hip Right Comp uted Radiography Narrative 06/23/2024 9:44 AM EDT Findings: Standing AP pelvis, AP and Frog Lateral of the RIGHT hip were obtained today in clinic, and personally reviewed by myself. The patient is status post total hip arthroplasty with expected appearance of implants. There is no evidence of failure or periprosthetic fracture. The implants are well aligned with stable appearance. Impression: Excellent postoperative radiographic appearance status post RIGHT total hip arthroplasty. us Sergio Gross MD IMG DIAGNOSTIC IMAGING ORDERABL ES Final Result from Last 3 Months Insurance [employer] Advance Directives Documents on File Type Date Recorded Patient Nurse Practitioner Hospitalist Expl anation Advance Directive 06/24/2023 7:36 AM Living Will * Full Code (Latest Code Status on File) Date Activated Date Inactivated Comments 06/24/2023 11:31 AM 06/24/2023 8:26 PM Care Teams Patent Drafter Relationship Specialty Start Date End Date Kenan Donald DO [address] [place] [address] PCP - General Internal Medicine 09/27/21
--- OUTSIDE RECORDS SUMMARY | 2024-08-30 06:52 | XMS_ITS | Clinical Summary ---
Author Organization [facility] Address [address] [place] [address] Care Team Providers Care Residential Sales Name Role Phone Kenan Donald DO Primary Care Provider [phone] Allergies Active Allergy Reactions Criticality Noted Date Comments Sulfa Antibiotics 05/30/2024 UNKNOWN REACTION per Patient Medications Omeprazole (PRILOSEC PO) Take 20 mg by mouth daily OTC Active Adapalene 0.3 % GEL APPLY THIN LAYER TO FACE AND TRUNK EVERY DAY AT BEDTIME 2 8 Active minocycline (MINOCIN;DYNACIN) 50 MG capsule TAKE 1 TO 2 CAPSULES BY MOUTH EVERY DAY 5 8 Active triamcinolone (KENALOG) 0.1 % ointmentIndicatio ns:Vulvar irritation Use twice daily over affected areas as needed for vulvar irritation. Not to exceed 6 weeks of continuous usage 1 Tube 1 0 Active losartan (COZAAR) 25 MG tablet Take 1 tablet by mouth every 24 hours Active meloxicam (MOBIC) 15 MG tablet Take 1 tablet by mouth daily Active metFORMIN (GLUCOPHAGE) 500 MG tablet Take 1 tablet by mouth 2 times daily Active Cholecalciferol (VITAMIN D-3 PO) Take by mouth daily Active Turmeric (QC TUMERIC COMPLEX PO) Take by mouth daily Active docusate sodium (COLACE) 100 MG capsule Take 1 capsule by mouth at bedtime Active oxyBUTYnin (DITROPAN XL) 10 MG extended release tabletIndications :OAB (overactive bladder),Urgency incontinence Take 1 tablet by mouth daily 90 tablet 3 Active Active Problems Problem Noted Date Diagnosed Date OAB (overactive bladder) 05/30/2024 Urgency incontinence 05/30/2024 Urinary urgency 05/30/2024 Urinary frequency 05/30/2024 Vulvar dystrophy 07/19/2014 BMI 30.0-30.9,adult 03/22/2014 Encounters Date Type Department Care Team Description 07/19/2024 10:15 AM EDT Office Visit [facility] [address] [place] [address] Nichelle Marte, CHEMICAL RESEARCH TECHNICIAN - STAVE BOLT EQUALIZER Nocturnal enuresis (Primary Dx); OAB (overactive bladder); Urgency incontinence 05/30/2024 10:00 AM EDT Office Visit [address] [place] [address] Jarad Mcelroy MD OAB (overactive bladder) (Primary Dx); Urgency incontinence; Urinary urgency; Urinary frequency from Last 3 Months Immunizations Immunization Administration Dates Next Due Influenza Vaccine, unspecified formulation 12/23 Family History Medical History Relation Name Comments Lung Cancer Father Cervical Cancer Mother Diabetes Mother Heart Surgery Mother Relation Name Status Comments Father Mother Social History Tobacco Use Types Packs/Day Years Used Date Smoking Tobacco: Never Smokeless Tobacco: Never Tobacco Cessation:Counseling Given: No Alcohol Use Standard Drinks/Week Comments Yes 0 (1 standard drink = 0.6 oz pur e alcohol) rarely PHQ-2 Answer Date Recorded PHQ-2 Score 0 06/21/2018 Comments No Sex and Gender Information Value Date Recorded Sex Assigned at Not on file Legal Sex Female 1:18 PM EST Gender Identity Not on file Sexual Orientation Not on file Last Filed Vital Signs Vital Sign Reading Time Taken Comments Blood Pressure 144/91 07/19/2024 10:36 AM EDT Pulse 77 07/19/2024 10:36 AM EDT Temperature 36.9 C (98.4 F) 07/19/2024 10:24 AM EDT Respiratory Rate - - Oxygen Saturation - - Inhaled Oxygen Concentration - - Weight 78 kg (172 lb) 07/19/2024 10:24 AM EDT Height 154.9 cm (5' 1 ) 05/30/2024 10:07 AM EDT Body Mass Index 32.5 05/30/2024 10:07 AM EDT Plan of Treatment Upcoming Encounters Date Type Department Care Team (Late st Contact Info) Description 01/22/2025 11:00 AM EST Office Visit [facility] Part of [address] [place] [address] Nichelle Marte, CHEMICAL RESEARCH TECHNICIAN - STAVE BOLT EQUALIZER [address] [place] [address] 6m f/u Health Maintenance Due Date Last Done Comments Depression Screen 1962 Hepatitis C screen 01/21/1968 Lipids 1990 Colonoscopy 1995 Colorectal Cancer Screen 1995 FIT/FOBT: Average risk 1995 Fecal-DNA (Cologuard): Average risk 1995 Sigmoidoscopy/CT colonography 1995 DEXA (modify frequency per FRAX score) 2005 DTaP/Tdap/Td vaccine (1 - Tdap) 12/30/2012 12/29/2012 Breast cancer screen 03/05/2021 03/05/2019, 03/06/2018, 02/17/2018, Additional history exists COVID-19 Vaccine ( season) 2023 12/18/2021, 01/06/2021 Annual Wellness Visit (Medicare Advantage) 03/21/2024 Respiratory Syncytial Virus (RSV) or age 60 yrs+ (1 - 1-dose 75+ series) 2025 Shingles vaccine Completed 01/21/2021, 10/10/2020 Pneumococcal 50+ years Vaccine Completed 12/16/2021, 05/08/2018, 04/08/2017, Additional history exists Flu vaccine Completed 01/03/2024, 04/2022, 12/16/2021, Additional history exists Hepatitis A vaccine Aged Out No longe r eligible based on patient's age to complete this topic Hepatitis B vaccine Aged Out No longe r eligible based on patient's age to complete this topic Hib vaccine Aged Out No longer eligi ble based on patient's age to complete this topic Meningococcal (ACWY) vaccine Aged Out No longer eligible based on patient's age to complete this topic Meningococcal B vaccine Aged Out No l onger eligible based on patient's age to complete this topic Polio vaccine Aged Out No longer elig ible based on patient's age to complete this topic Procedures Procedure Name Priority Date/Time Associated Diagnosis Comments DAVON,POST-VOID RES,US,NON-IMAGING Routine 07/19/2024 10:41 AM EDT OAB (overactive bladder) Urgency incontinence Nocturnal enuresis MARKO DIGITAL SCREEN W OR WO CAD BILATERAL Routine 03/05/2019 2:38 PM EST Screening mammogram for high-risk patient from Last 3 Months or Most Recently Relevant to Health Maintenance Results * MARKO DIGITAL SCREEN W CAD BILATERAL (03/05/2019 2:38 PM EST) Anatomical Region Laterality Modality Breast Bilateral Mammography 03/05/2019 2:42 PM EST Impressions 03/07/2019 11:46 AM EST No evidence of malignancy. Advise annual screening [...] screening mammogram in 1 year is advised. Narrative 03/07/2019 11:46 AM EST EXAMINATION: BILATERAL DIGITAL SCREENING MAMMOGRAM, [...] architectural distortion significant interval changes are noted. Procedure Note Jael Rice MD - 03/07/2019 EXAMINATION: BILATERAL DIGITAL SCREENING MAMMOGRAM, 03/05/2019 TECHNIQUE: CC and MLO views of the left and right breasts were obtained. Computeraided detection was utilized in the interpretation of this exam. 3Dtomosynthesis images were obtained. COMPARISON: 17 February 2018; 06 November 2016; 03 July 2014; 27 August 2011 HISTORY: Screening. Negative family history of breast cancer. Oral contraceptive usage x2 months. Negative history of replacement therapy. No priorbreast interventions. FINDINGS: The breasts are heterogeneously dense which can obscure small masses.No skin thickening, contour changes, malignant type microcalcifications areasof architectural distortion significant interval changes are noted. IMPRESSION: No evidence of malignancy. Advise annual screening mammography. BREAST DENSITY SUMMARY C: The breasts are heterogeneously dense whichmay obscure small masses. BI-RADS 1 BIRADS: BIRADS - CATEGORY 1 Negative, no evidence of malignancy in either breast. OVERALL ASSESSMENT - NEGATIVE A letter of notification will be sent to the patient regarding theresults. RECOMMENDATION: Routine bilateral annual screening mammography is recommended. Follow-up screening mammogram in 1 year is advised. Andrew Mix MD IMG MAMMOGRAPHY ORDERABLES Fi nal Result from Last 3 Months or Most Recently Relevant to Health Maintenance Insurance [id number] [id number] Care Teams Residential Sales Relationship Specialty Start Date End Date Kenan Donald DO [facility] - General 06/27/14
--- OUTSIDE RECORDS SUMMARY | 2024-08-30 06:52 | XMS_ITS | Clinical Summary ---
Author Organization [facility] Healthcare Address [address] [place] [address] Care Team Providers Care Hospice Social Worker Name Role Phone Kenan Donald DO Primary Care Provider [phone] Allergies No known active allergies Medications Multiple Vitamins-Minerals (Centrum Silver 50+Women) tablet Act marilee Semaglutide,0.25 or 0.5MG/DOS, (Ozempic, 0.25 or 0.5 MG/DOSE,) 2 MG/3ML solution pen-injector Active omeprazole (PriLOSEC) [address] capsule Take 20 mg by mouth in the morning. Active metFORMIN (Glucophage) 500 MG/5ML solution oral solution Active losartan (Cozaar) 25 MG tablet 1 (one) time each day at the same time Active meloxicam (Mobic) 15 MG tablet Take 15 mg by mouth Daily Active predniSONE (Deltasone) 10 MG tabletIndications:P rimary osteoarthritis of right ankle,Posterior tibial tendinitis of right lower extremity Take twice daily for 5 days, then take once daily for 5 days. 15 tablet Active Hospital, Clinic, or Other Facility Administered Medication Ordered Dose Route Frequency Start Date End Date Status betamethasone acetate-betamethasone sodium phosphate (Celestone) injection 3 mgIndications:Sinus tarsi syndrome of right foot 3 mg IX Once 08/08/2024 08/08/2024 En ded triamcinolone acetonide (Kenalog-40) injection 20 mgIndications:Sinus tarsi syndrome of right foot 20 mg IX Once 08/08/2024 08/08/2024 En ded Active Problems No known active problems Encounters Date Type Department Care Team Description 08/08/2024 9:00 AM EDT Office Visit [facility] [address] [place] [address] Jeff Nuno DPM 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); Primary osteoarthritis of right ankle; Valgus deformity, not elsewhere classified, right ankle 08/08/2024 Bamboo flowsheet [facility] [address] [place] [address] Jeff Nuno DPM 08/08/2024 Travel 08/07/2024 Travel 07/31/2024 Results Follow-Up [facility] [address] [place] Evette VIVAS [address] [address] Yojana Palomino DO 07/25/2024 9:00 AM EDT Office Visit [facility] [address] [place] [address] Jeff Nuno DPM Primary osteoarthritis of right ankle (Primary Dx); Arthralgia of right foot; Valgus deformity, not elsewhere classified, right ankle; Posterior tibial tendinitis of right lower extremity 07/25/2024 Bamboo flowsheet [facility] [address] [place] [address] Jeff Nuno DPM 07/25/2024 Travel 07/24/2024 Travel 06/13/2024 3:00 PM EDT Ancillary Procedure [facility] [address] [place] [address] 06/13/2024 2:55 PM EDT Ancillary Procedure [facility] [place] [address] 06/13/2024 2:15 PM EDT Office Visit [facility] [address] [place] [address] Jeff Nuno DPM Primary osteoarthritis of right ankle (Primary Dx); Valgus deformity, not elsewhere classified, right ankle; Posterior tibial tendinitis of right lower extremity; Instability of right ankle joint; Acute right ankle pain; Right foot pain; Equinus contracture of right ankle; Difficulty walking 06/13/2024 BamTruminimo flowsheet [facility] [address] [place] [id number] Jeff Nuno, DPSourav 06/13/2024 Travel from Last 3 Months Immunizations Immunization Administration Dates Next Due Influenza, High Dose Seasona l, Preservative Free 01/03/2024,01/08/2019,03/18/2016 Influenza, Seasonal, Quadriv alent, Adjuvanted 12/16/2021 Influenza, Unspecified 12/23/2017 Influenza, injectable, quadr ivalent, preservative free 11/02/2016 Influenza, trivalent, adjuvanted 12/21/2017,03/21 Pneumococcal Conjugate PCV 13 04/08/2017 Pneumococcal Polysaccharide PPSV23 12/16/2021,,04/08/2017 Zoster, Recombinant 01/21/2021,10/10/2020 Family History Medical History Relation Name Comments Arthritis [address] [facility] Diabetes Brother 2 Ricardo larimer. Heart disease Brother 3 Raúl larimer Heart disease Brother 4 Rob larimer Cancer Father Sonu Johnsonimer Diabetes Mother Marcela larimer Heart disease Mother Marcela larimer Diabetes Sister Nayely mahmood Relation Name Status Comments Brother [address] [facility] [employer] Alive Brother 2 Ricardo larimer. Alive Brother 3 Raúl larimer Alive Brother 4 Rob larimer Alive Father Sonu [employer] Alive Mother Marcela larimer Alive Sister Nayely mahmood Alive Social History Tobacco Use Types Packs/Day Years Used Date Smoking Tobacco: Never Smokeless Tobacco: Never Tobacco Cessation:Counseling Given: Not Answered Alcohol Use Standard Drinks/Week Comments Not Currently 0 (1 standard drink = 0.6 oz pur e alcohol) Comments No Sex and Gender Information Value Date Recorded Sex Assigned at Not on file Legal Sex Female 7:26 PM EDT Gender Identity Not on file Sexual Orientation Not on file Last Filed Vital Signs Vital Sign Reading Time Taken Comments Blood Pressure 136/82 03/27/2024 3:26 PM EST Pulse - - Temperature - - Respiratory Rate - - Oxygen Saturation - - Inhaled Oxygen Concentration - - Weight 77.1 kg (170 lb) 08/08/2024 8:59 AM EDT Height 157.5 cm (5' 2 ) 08/08/2024 8:59 AM EDT Body Mass Index 31.09 08/08/2024 8:59 AM EDT Plan of Treatment Upcoming Encounters Date Type Department Care Team (Late st Contact Info) Description 04/01/2025 9:45 AM EST Office Visit [facility] [address] [place] D [address] [address] Yojana Palomino DO [address] [address] Health Maintenance Due Date Last Done Comments CT Colonography 1950 Colonoscopy 1950 Colorectal Cancer Screening 1950 FIT-DNA 1950 FIT 1950 FOBT 1950 Sigmoidoscopy 1950 Mammogram 03/05/2020 03/05/2019, 02/18, 02/17/2018, Additional history exists Pneumococcal Vaccine: 65+ Years Completed 12/16/2021, 05/08/2018, 04/08/2017, Additional history exists Influenza Vaccine Completed 01/03/2024, , 01/08/2019, Additional history exists Procedures Procedure Name Priority Date/Time Associated Diagnosis Comments DEXA BONE DENSITY Routine 07/23/2024 11: 30 AM EDT Postmenopausal XR ANKLE 2 VIEWS RIGHT Routine 06/13/2024 2:51 PM EDT Primary osteoarthritis of right ankle Valgus deformity, not elsewhere classified, right ankle Posterior tibial tendinitis of right lower extremity Acute right ankle pain XR FOOT 3+ VIEWS RIGHT Routine 06/13/2024 2:51 PM EDT Primary osteoarthritis of right ankle Valgus deformity, not elsewhere classified, right ankle Posterior tibial tendinitis of right lower extremity Right foot pain from Last 3 Months Results * DEXA bone density (07/23/2024 11:30 AM EDT) us Yojana Huang Georgette DO IMG DXA PROCEDURES Final R esult * XR foot 3+ views right (06/13/2024 2:51 PM EDT) Anatomical Region Laterality Modality Lower Extremities, Foot Right Radiogra phic Imaging Narrative 06/13/2024 3:12 PM EDT Imaging Result: AP, medial oblique, calcaneal axial views are weight-bearing. Approximately 5 degrees of rearfoot valgus. Degenerative changes of the naviculocuneiform, talonavicular joints as well as mild degenerative changes of the tarsometatarsal joints. No fractures or dislocations. Slight osteopenia. Jeff Nuno DPM IMG XR PROCEDURES Final Res ult * XR ankle 2 views right (06/13/2024 2:51 PM EDT) Anatomical Region Laterality Modality Lower Extremities, Ankle Right Radiogr aphic Imaging Narrative 06/13/2024 3:13 PM EDT Imaging Result: AP, lateral views are weight-bearing. [...] osteophytes over the tibiotalar joint. Diffuse osteopenia. Result [facility] Jeff Nuno DPM IMG XR PROCEDURES Final Res ult from Last 3 Months Insurance [employer] Care Teams Hospice Social Worker Relationship Specialty Start Date End Date Kenan Donald DO [address] [place] [address] PCP - General Internal Medicine 03/27/24
[2024-08-30 07:19] LABS: Basophils Percent Auto 0.6 % (0.2-2.0); Eosinophils Absolute Auto 0.3 10^3/uL (0.0-0.7); Eosinophils Percent Auto 4.7 % (0.9-7.0); Hematocrit 45.5 % (36.0-48.0); Hemoglobin 15.2 g/dL (12.0-16.0); Immature Granulocytes Abs Auto 0.01 10^3/uL (0.00-0.03); Immature Granulocytes Pct Auto 0.1 % (0.0-0.5); Lymphocytes Absolute Auto 3.1 10^3/uL (1.2-3.8); Lymphocytes Percent Auto 45.3 % (20.5-60.0); Mean Corpuscular HGB Conc 33.4 g/dL (29.9-35.2); Mean Corpuscular Volume 92.7 fL (81.0-99.0); Mean Platelet Volume 9.8 fL (9.5-13.5); Monocytes Absolute Auto 0.5 10^3/uL (0.3-0.8); Neutrophils Absolute Auto 2.9 10^3/uL (1.4-6.5); Neutrophils Percent Auto 42.3 % (43.0-75.0); Platelet Count 252 10^3/uL (150-450); Red Blood Count 4.91 10^6/uL (4.20-5.40); Red Cell Distribution Width 14.3 % (11.0-15.0); White Blood Count 6.8 10^3/uL (4.0-11.0)
[2024-08-30 07:20] LABS: Microalbumin Urine Random <1.3 mg/dL (<=30.0)
[2024-08-30 07:22] LABS: Estimated Average Glucose 123 mg/dL; Glycohemoglobin A1C 5.9 % (4.5-6.2)
[2024-08-30 08:12] LABS: Alanine Aminotransferase 44 U/L (14-59); Albumin Globulin Ratio 1.1; Albumin Level 3.8 g/dL (3.4-5.0); Alkaline Phosphatase 87 U/L (46-116); Anion Gap 11.9; Aspartate Amino Transferase 21 U/L (15-37); BUN Creatinine Ratio 21.6; Bilirubin Total 0.4 mg/dL (0.2-1.0); Calcium 9.2 mg/dL (8.5-10.1); Carbon Dioxide 30.2 mmol/L (21.0-32.0); Chloride 104 mmol/L (98-107); Chol HDL Ratio 3.6; Cholesterol 220 mg/dL (<=200); Estimated GFR (African America >60 (>=60 mL/min/1.73m^2); Estimated GFR (Non-African Ame >60 (>=60 mL/min/1.73m^2); Globulin 3.6 g/dL; Glucose 127 mg/dL (74-106); HDL Cholesterol 61 mg/dL (40-60); Potassium 4.1 mmol/L (3.5-5.1); Sodium 142 mmol/L (136-145); Thyroid Stimulating Hormone 1.863 uIU/mL (0.358-3.740); Total Protein 7.4 g/dL (6.4-8.2); Triglycerides 125 mg/dL (<=150)
== END 2024-08-30 06:48 | disposition home or self-care (01) ==
LOC: LAB 06:49
PROVIDERS: PCP Internal Medicine; Visit Provider Internal Medicine
DX: E78.00 Pure hypercholesterolemia, unspecified (principal); E11.65 Type 2 diabetes mellitus with hyperglycemia; I10 Essential (primary) hypertension; R53.83 Other fatigue
CPT/HCPCS: 36415; 80053; 80061; 82043; 82570; 83036; 84443; 85025

== ENCOUNTER 2025-02-06 08:51 | Outpatient (OUT) | payer MEDICARE, SELFPAY ==
--- OUTSIDE RECORDS SUMMARY | 2025-02-06 08:57 | XMS_ITS | CCD ---
Author Organization [facility] Care Team Providers Care Location And Measurement Technician Name Role Phone KENAN DONALD Referring Unavailable KENAN DONALD Primary Care Unavailable Kenan Donald DO Primary Care Provider OLU, DR DORENE Levin Admitting Unavailable BALL, DR BREWER Primary Care Unavailable OLU, DR DORENE Levin Attending Unavailable RAINES, DR DORENE Levin Consulting Unavailable FRANKLIN, WINDONITA [...] Attending Unavailable BALL, DR BREWER Consulting Unavailable Kenan Donald Unavailable Kenan Donald MD Primary Care Provider Kenan Donald DO Primary Care Provider [phone] Kenan Donald DO Attending Provider Kenan Donald DO Primary Care Provider Kenan Donald Attending Unavailable Odilon, Kenan Primary Care Unavailable Kenan Donald Admitting Unavailable RUSHER, YUNI Tapia Attending Unavailable RUS, YUNI Tapia Referring Unavailable YOJANA MENESES Attending Unavailable RUSHER, YUNI Tapia Referring Unavailable RUSHER, YUNI Tapia Attending Unavailable RUS, YUNI S Attending Unavailable Ball Kenan SALMERON Primary Care Provider [phone] Kenan Donald DO Attending Provider Allergies Allergy ClassificationReported Allergen(s)Allergy TypeDate of OnsetReaction(s) Facility (1 source)Sulfonamides (Antibiotic)Drug allergy (disorder)[facility] (10 sources)LisinoprilDrug Zvmgipg36-33-2409omjhzVvaffhfedOhioHealth [facility] (10 sources)SulfamethoxazoleDrug Vdllxtn75-28-2916Inzngis, Unknown Reaction [facility] (6 sources)Sulfamethoxazole / TrimethoprimDrug AllergyUnknowSaint Joseph Hospital of [facility] [employer] Other (5 sources)Trimethoprim; Translations: [trimethoprim]Drug Bnorlbm84-96-3886 Unknown ReactionOhio State East Hospital (1 source)LisinoprilDrug Bsmmsvq24-36-1838XbjzwfwdlOhio State East Hospital Repository (1 source)SulfamethoxazoleDrug Pfojyxh27-28-9334GldsplwetOhio State East Hospital Repository Medications Current Medications MedicationDrug Class(es)DatesSig (Normalized)Sig (Original)3 ML semaglutide 1.34 MG/ML Pen Injector [Ozempic] (6 sources)Start: 20-56-2073dcgbnw 1 mg by subcutaneous injection every week Ozempic (1 MG/DOSE) 4 MG/3ML 1mg Subcutaneous weekly for 28 days Mar, ActiveOzempic (1 MG/DOSE) 4 MG/3ML INJECT 1 MG SUBCUTANEOUSLY WEEKLY FOR 28 DAYS for 28 Active3 ML semaglutide 2.68 MG/ML Pen Injector [Ozempic] (3 sources)Start: 82-42-6696infgqt 2 mg by subcutaneous injection every week Ozempic (2 MG/DOSE) 8 MG/3ML 2MG Subcutaneous weekly for 28 days Dec, Activeadapalene 0.003 mg/mg topical gel (1 source)RetinoidStart: 72-22-4253Rssyrmvfi 0.3 % GEL APPLY THIN LAYER TO FACE AND TRUNK EVERY DAY AT BEDTIME 2 11/10/2017 ActiveamLODIPine 5 mg oral tablet (1 source)Dihydropyridine Calcium Channel BlockerStart: 45-78-2605btli 1 tablet by mouth once dailyAmlodipine 5 mg tablet Active 5 MG PO Daily January 04, 2025 12:00am Complies with drug therapybetamethasone 3 mg/ml / betamethasone acetate 3 mg/ml injectable suspension (8 sources)CorticosteroidStart: 08-08-2024 End: 44-99-7439aehrfqgafvbmb acetate-betamethasone sodium phosphate (Celestone) injection 3 mgStart: 08-08-2024 End: mg, Intra-articular, Once, On Tue08/08/24 at 0930, For 1 dose Start: 08-08-2024 End: 81-98-3035mblromlkuusnc acetate-betamethasone sodium phosphate (Celestone) injection 3 mgStart: 08-08-2024 End: mg, Intra-articular, Once, On Tue08/08/24 at 0930, For 1 dose Start: 07-25-2024 End: 96-72-3816kjghscnnyuvuc acetate-betamethasone sodium phosphate (Celestone) injection 3 mgStart: 07-25-2024 End: 89-69-9628eqdujdyxftmwg acetate-betamethasone sodium phosphate (Celestone) injection 3 mgStart: 07-25-2024 End: mg, Intra-articular, Once, On Tue07/25/24 at 0930, For 1 dose Start: 07-25-2024 End: mg, Intra-articular, Once, On Tue07/25/24 at 0930, For 1 dose Blood-Glucose Meter (Onetouch Verio Reflect Meter) mis (3 sources)Start: 05-08-4672Zeltx-Glucose Meter (Onetouch Verio Reflect Meter) [facility] [place] 0 .ROUTE .COMPLEX 1 September 05, 2024 6:02pm Type 2 diabetes mellitus with hyperglycemia Type 2 diabetes mellitus with hyperglycemia TO TEST BLOOD SUGAR DAILYStart: 07-03-2024 End: 02-44-5965Vycxh-Glucose Meter (Onetouch Verio Reflect Meter) [facility] [place] Discontinued 0 .Route 1 July 03, 2024 12:00am September 05, 2024 6:02pm Type 2 diabetes mellitus with hyperglycemia Type 2 diabetes mellitus with hyperglycemia to test blood sugar dailyStart: 25-62-5550Nkhni-Glucose Meter (Onetouch Verio Reflect Meter) misc Active 0 .Route 1 July 03, 2024 12:00am t o test blood sugar dailyclobetasol propionate 0.0005 mg/mg topical ointment (14 sources)CorticosteroidStart: 05-24-2023 End: 23-82-4378Tbmrcabmvo 0.05 % ointment Active 1 APPLIC TOPICAL Twice daily as needed May 26, 2023 11:05am Complies with drug therapyClobetasol Propionate 0.05 % 1 application Externally Twice a day Activemeloxicam 15 mg oral tablet (18 sources)Nonsteroidal Anti-inflammatory DrugStart: 21-57-1963zkxk 1 tablet by mouth once daily as needed for painMeloxicam 15 mg tablet Active 15 MG PO Daily as needed for pain 30 30 February 13, 2024 6:20pm Complies with drug therapyStart: 01-31-2024 End: 32-28-6826orps 1 tablet by mouth once dailyMeloxicam 15 mg tablet Discontinued 0 .ROUTE .COMPLEX 30 5 January 31, 2024 11:12am February 13, 2024 6:21pm TAKE 1 TABLET BY MOUTH EVERY DAYStart: 01-03-2024 End: 26-15-4427vfad 1 tablet by mouth once dailyMeloxicam 15 mg tablet Discontinued 15 MG PO Daily 30 30 0 January 03, 2024 12:00am January 31, 2024 11:12ammetFORMIN hydrochloride 500 mg oral tablet (20 sources)BiguanideStart: 63-82-5991mlwf 1 tablet by mouth once daily at mealtimeMetformin 500 mg tablet Active 0 .ROUTE .COMPLEX 180 3 November 04, 2023 2:05pm TAKE 1 TABLET BY MOUTH EVERY MORNING AND AT SUPPER TIME WITH FOOD FOR 90 DAYS Complies with drug therapyStart: 05-24-2023 End: 90-53-2131ofnw 1 tablet by mouth once dailyMetformin 500 mg tablet Discontinued 500 MG PO Daily May 24, 2023 1:00am November 04, 2023 2:13pm metFORMIN (Glucophage) 500 MG/5ML solution oral solution Activetake 1 tablet by mouth at mealtimemetFORMIN HCl 500 MG TAKE 1 TABLET BY MOUTH IN THE MORNING AND AT SUPPER TIME WITH FOOD Activetake 1 tablet by mouth twice dailymetFORMIN HCl 500 MG 1 tablet with a meal Orally twice a day Activeminocycline 100 mg oral capsule (6 sources)Tetracycline-class DrugStart: 13-50-7988xngo 1 capsule by mouth once dailyMinocycline 100 mg capsule Active 100 MG PO Daily September 11, 2024 12:00am Complies with drug therapyStart: 01-03-2024 End: 12-67-2278aeel 1 capsule by mouth once dailyMinocycline 100 mg capsule Discontinued 100 MG PO Daily January 03, 2024 12:00am January 03, 2024 10:03amStart: 07-68-7005rmsz 1-2 capsules by mouth once dailyminocycline (MINOCIN;DYNACIN) 50 MG capsule TAKE 1 TO 2 CAPSULES BY MOUTH EVERY DAY 11/05/2017 ActiveMultiple Vitamins-Minerals (Centrum Silver 50+Women) tablet (11 sources)Multiple Vitamins-Minerals (Centrum Silver 50+Women) tablet Active omeprazole 20 mg delayed release oral capsule (20 sources)Proton Pump InhibitorStart: 58-84-4891Ptkjdczzgo 20 mg capsule,delayed release(DR/EC) Active 0 .ROUTE .COMPLEX 90 May 02, 2024 7:53am TAKE 1 CAPSULE BY MOUTH EVERY DAY FOR 30 DAYS TAKE ON AN EMPTY STOMACH 30 MINUTES PRIOR TO BKFST Complies with drug therapyStart: 05-09-2023 End: 34-36-4442Grjdxrkymt 20 mg capsule,delayed release(DR/EC) Discontinued 20 MG PO Daily 30 30 April 1:00am May 02, 2024 7:53am Take on an empty stomach, 30 minutes prior to bkfstOmeprazole 20 MG TAKE 1 CAPSULE DAILY ON EMPTY STOMACH FOLLOWED IN 30 MINUTES BY BKFST Activetake 20 mg by mouth once dailyOmeprazole (PRILOSEC PO) Take 20 mg by mouth daily OTC 0 Active Omeprazole 20 mg capsule,delayed release(DR/EC) (2 sources)Start: 16-59-8275Gpemoanfqm 20 mg capsule,delayed release(DR/EC) Active 0 .ROUTE .COMPLEX May 02, 2024 7:53am TAKE 1 CAPSULE BY MOUTH EVERY DAY FOR 30 DAYS TAKE ON AN EMPTY STOMACH 30 MINUTES PRIOR TO BKFSTStart: 77-57-4526Ernvjffvrd 20 mg capsule,delayed release(DR/EC) Active 0 .ROUTE .COMPLEX May 02, 2024 6:53am TAKE 1 CAPSULE BY MOUTH EVERY DAY FOR 30 DAYS TAKE ON AN EMPTY STOMACH 30 MINUTES PRIOR TO BKFSTOneTouch SureSoft Lancing Dev - (6 sources)OneTouch SureSoft Lancing Dev - as directed ActiveOneTouch Verio - (6 sources)OneTouch Verio - as directed In Vitro ActiveOneTouch Verio w/Device (6 sources)OneTouch Verio w/Device as directed Hfugfe61 hr oxybutynin chloride 10 mg extended release oral tablet (1 source)Cholinergic Muscarinic AntagonistStart: 78-43-9858btvc 1 tablet by mouth once dailyOxybutynin Chloride 10 mg tablet extended release 24hr Active 10 MG PO Daily September 11, 2024 12:00am Complies with drug therapypredniSONE 10 mg oral tablet (8 sources)Start: 22-33-4541ukutghRWQQ (Deltasone) 10 MG tablet Indications: Primary osteoarthritis of right ankle , Posterior tibial tendinitis of right lower extremity Take twice daily for 5 days, then take once daily for 5 days. 15 tablet 06/13/2024 Active0.25 mg, 0.5 mg dose 1.5 ml semaglutide 1.34 mg/ml pen injector (2 sources)Ozempic (0.25 or 0.5 MG/DOSE) 2 MG/1.5ML as directed Subcutaneous ActiveSemaglutide,0.25 or 0.5MG/DOS, (Ozempic, 0.25 or 0.5 MG/DOSE,) 2 MG/3ML solution pen-injector (11 sources)Semaglutide,0.25 or 0.5MG/DOS, (Ozempic, 0.25 or 0.5 MG/DOSE,) 2 MG/3ML solution pen-injector Activespironolactone 50 mg oral tablet (1 source)Aldosterone AntagonistStart: 86-24-9688gnwnifgxveylzy (ALDACTONE) 50 MG tablet1 ml triamcinolone acetonide 40 mg/ml prefilled syringe (13 sources)CorticosteroidStart: 08-08-2024 End: 52-90-6456bqaqsonxrepwl acetonide (Kenalog-40) injection 20 mgStart: 08-08-2024 End: 76-54-058712 mg, Intra-articular, Once, On Tue08/08/24 at 0930, For 1 dose Start: 08-08-2024 End: 67-90-1978ecvxrjwkddgwy acetonide (Kenalog-40) injection 20 mgStart: 08-08-2024 End: 20-72-796869 mg, Intra-articular, Once, On Tue08/08/24 at 0930, For 1 dose Start: 07-25-2024 End: 62-50-9235ypnpnmcbbbsaf acetonide (Kenalog-40) injection 20 mgStart: 07-25-2024 End: 36-69-7108senuqphihemqb acetonide (Kenalog-40) injection 20 mgStart: 07-25-2024 End: 70-55-037679 mg, Intra-articular, Once, On Tue07/25/24 at 09, For 1 dose Start: 07-25-2024 End: 06-26-523951 mg, Intra-articular, Once, On Tue07/25/24 at 929, For 1 dose Start: 54-16-2802Hpcbxqycdveil Acetonide 0.1 % ointment Active 1 APPLIC TOPICAL Twice daily 45 1 January 03, 2024 12:00am Complies with drug therapyStart: 26-91-1264chbysvwhbleyf (KENALOG) 0.1 % ointment Indications: Vulvar irritation Use twice daily over affectedareas as needed for vulvar irritation. Not to exceed 6 weeks of continuous usage 1 Tube 1 03/01/2019 Active Completed/Discontinued Medications MedicationDrug Class(es)DatesSig (Normalized)Sig (Original)ciprofloxacin 250 mg oral tablet (1 source)Quinolone AntimicrobialStart: 07-24-2024 End: 55-29-5108olsd 1 tablet by mouth twice dailyCiprofloxacin Hcl 250 mg tablet Discontinued 250 MG PO Twice daily 10 5 0 July 24, 2024 12:00am September 11, 2024 9:23amlosartan potassium 25 mg oral tablet (20 sources)Angiotensin 2 Receptor BlockerStart: 03-23-2024 End: 65-30-9212etpr 1 tablet by mouth once dailyLosartan 25 mg tablet Discontinued 25 MG PO Daily 90 90 3 March 23, 2024 4:41pm January 04, 2025 9:01amStart: 09-27-2023 End: 52-08-7357pqfh 1 tablet by mouth once dailyLosartan 25 mg tablet Discontinued 0 .ROUTE .COMPLEX 90 0 September 27, 2023 8:40am March 23, 2024 4: 42pm TAKE 1 TABLET BY MOUTH EVERY DAYStart: 05-24-2023 End: 86-39-0566heff 1 tablet by mouth once dailyLosartan 25 mg tablet Discontinued 25 MG PO Daily May 24, 2023 1:00am September 27, 2023 8:41am nitrofurantoin, macrocrystals 25 mg / nitrofurantoin, monohydrate 75 mg oral capsule (2 sources)Nitrofuran AntibacterialStart: 07-23-2024 End: 67-37-2517vtaz 1 capsule by mouth every twelve hours at mealtime Nitrofurantoin Monohyd/M-Cryst 100 mg capsule Discontinued 100 MG PO Every 12 hours 10 5 0 July 12:00am July 24, 2024 12:37pm must administer with a meal/foodSemaglutide (7 sources)Start: 04-28-2024 End: 59-01-3655mtycuz 1 mg by subcutaneous injection every weekSemaglutide (Ozempic) 1 mg/dose (4 mg/3 mL) pen injector Discontinued 1 MG SUBCUT every week 06 15 10April 28, 2024 6:05pm May 08, 2024 11:12amStart: 04-28-2024 End: 34-94-9679gjltbc 1 mg by subcutaneous injection every weekSemaglutide (Ozempic) 1 mg/dose (4 mg/3 mL) pen injector Discontinued 1 MG SUBCUT every week 3 April 28, 2024 6:05pm May 08, 2024 11:12amStart: 04-28-2024 End: 90-11-1745gbwivh 1 mg by subcutaneous injection every weekSemaglutide (Ozempic) 1 mg/dose (4 mg/3 mL) pen injector Discontinued 1 MG SUBCUT every week 3 April 28, 2024 5:05pm May 08, 2024 10:12amStart: 05-24-2023 End: 66-27-9092equsmg 1 mg by subcutaneous injection every weekSemaglutide (Ozempic) 1 mg/dose (4 mg/3 mL) pen injector Discontinued 1 MG SUBCUT every week May 24, 2023 1:00am April 28, 2024 6:06pmStart: 05-24-2023 End: 66-93-8949lpjdbm 1 mg by subcutaneous injection every weekSemaglutide (Ozempic) 1 mg/dose (4 mg/3 mL) pen injector Discontinued 1 MG SUBCUT every week May 24, 2023 12:00am April 28, 2024 5:06pmStart: 17-97-7612ikdqux 1 mg by subcutaneous injection every weekSemaglutide (Ozempic) 1 mg/dose (4 mg/3 mL) pen injector Active 1 MG SUBCUT every week May 24, 2023 1:00am Problems Active Problems Problem ClassificationProblemDateDocumented DateEpisodic/ChronicAcquired foot deformities (6 sources)Acquired varus deformity of right ankle; Translations: [Valgus deformity, not elsewhere classified,right ankle]71-75-7038LxucdzvvBtxpibio reactions (8 sources)Urticaria; Translations: [Urticaria, unspecified]84-89-9696Toteevqp Diabetes mellitus with complications (17 sources)Type 2 diabetes mellitus with hyperglycemia; Translations: [Type 2 diabetes mellitus]Onset: 41-16-5007RgxixyyAervfelb mellitus without complication (1 source)Type 2 diabetes mellitus without complications; Translations: [TYPE 2 DM WITHOUT COMPLICATIONS]Onset: 75-83-5876CywwshbIjtqcwpt mellitus without complication (3 sources)Impaired fasting glycemia; Translations: [Impaired fasting glucose] EpisodicDisorders of lipid metabolism (16 sources)Familial hypercholesterolemia; Translations: [Hypercholesterolemia] Onset: 54-82-5323CfesaeoUbnjfolnxt disorders (12 sources)Gastroesophageal reflux disease; Translations: [Gastro-esophageal reflux disease without esophagitis]74-83-3434EqhtmmbYuetujwnm hypertension (20 sources)Essential (primary) hypertension; Translations: [Essential hypertension]Onset: 79-83-6233SwdbmwtZrumdhkwvnbey symptoms and ill-defined conditions (8 sources)Urinary incontinence; Translations: [Unspecified urinary incontinence]35-27-3564DwnxlgtInbafhecexppm symptoms and ill-defined conditions (1 source)Dysuria; Translations: [Dysuria]Onset: 04-34-3498MalcbldsFshqt valve disorders (1 source)Cardiac murmur, unspecifiedEpisodicMalaise and fatigue (4 sources)Fatigue; Translations: [Other fatigue]EpisodicNutritional deficiencies (6 sources)Vitamin D deficiency; Translations: [Vitamin D deficiency, unspecified]26-93-7473YtgjstiCdjvlosmphuhmi (14 sources)Osteoarthritis of right hip joint; Translations: [Unilateral primary osteoarthritis, right hip]81-47-9550IsfeoooGletc acquired deformities (2 sources)Equinus contracture of the ankle; Translations: [Contracture, right ankle]95-36-8593TxxwuhnUhghk aftercare (2 sources)Other buttermaker continuous churn (current) drug therapy; Translations: [OTH INSPECTOR EYEGLASS CURRENT DRUG THERAPY]Onset: 56-98-9987SprshzxmYvwkq aftercare (6 sources)H/O: high risk medication; Translations: [Other buttermaker continuous churn (current) drug therapy]EpisodicOther connective tissue disease (2 sources)Other symptoms and signs involving the nervous system; Translations: [Suspected sleep apnea]EpisodicOther connective tissue disease (4 sources)Tendinitis of right posterior tibial tendon; Translations: [Posterior tibial tendinitis, right leg]14-02-3746TnxgsxmsNfjhh connective tissue disease (2 sources)Pain in right foot; Translations: [Pain in right foot]06-13-2024 EpisodicOther female genital disorders (6 sources)Leukoplakia of vulva; Translations: [Leukoplakia of vulva]Episodic Other female genital disorders (4 sources)Leukoplakia of vulva; 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]53-90-3725CvogybhuNktwr gastrointestinal disorders (2 sources)Dysphagia; Translations: [Dysphagia, unspecified]EpisodicOther inflammatory condition of skin (3 sources)Brachioradial pruritus; Translations: [Pruritus, unspecified] 00-20-8100SkznxrojBlkbn nervous system disorders (2 sources)Difficulty walking; Translations: [Difficulty in walking, not elsewhere classified]26-60-9087KxmuuioUmukk non-traumatic joint disorders (4 sources)Pain in right hip joint; Translations: [Pain in right hip]Episodic Other non-traumatic joint disorders (1 source)Pain in right hipEpisodicOther non-traumatic joint disorders (2 sources)Instability of joint of right ankle; Translations: [Other instability, right ankle]10-86-7588IraapjgjWsgmj non-traumatic joint disorders (2 sources)Acute ankle pain; Translations: [Pain in right ankle and joints of right foot]68-70-9000RovgbzrcQhgyg non-traumatic joint disorders (2 sources)Pain of joint of right foot; Translations: [Pain in right ankle and joints of right foot]60-88-3792CzfgxdjuLwevj non-traumatic joint disorders (2 sources)Sinus tarsi syndrome of right ankle; Translations: [Pain in right ankle and joints of right foot]46-94-2031MywemvfgIerml nutritional; endocrine; and metabolic disorders (1 source)Body mass index 30+ - obesityOnset: 645373-72-2982CpmnlewYiciq nutritional; endocrine; and metabolic disorders (6 sources)Obese class I; Translations: [Obesity, unspecified]ChronicOther nutritional; endocrine; and metabolic disorders (3 sources)Obesity, unspecified; Translations: [Obesity, unspecified]Chronic Other nutritional; endocrine; and metabolic disorders (5 sources)Obesity; Translations: [Obesity, unspecified]52-63-4764XtbqtmfHhxks nutritional; endocrine; and metabolic disorders (1 source)OverweightEpisodicOther screening for suspected conditions (not mental disorders or infectious disease) (13 sources)Encounter for screening mammogram for malignant neoplasm of breast; Translations: [Patient encounter status]Onset: 40-71-6000XsgafphmWafspbzr 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al organs (2 sources)Midline cystocele; Translations: [Cystocele, midline]03-27-2024 ChronicResidual codes; unclassified (2 sources)Asymptomatic menopausal state; Translations: [Menopause]Episodic Residual codes; unclassified (8 sources)Menopause present; Translations: [Asymptomatic menopausal state] 69-43-1126NnilrbruHskqeaoz codes; unclassified (2 sources)Postmenopausal state; Translations: [Asymptomatic menopausal state] 17-84-2723XgrpczycNfawbiawjrc injury; contusion (7 sources)Contusion of left back wall of thorax, initial encounter; Translations: [Contusion of unspecified back wall of thorax, initial encounter] Onset: 83-08-6493QdkmvkcwPcbdusutongd (1 source)Patient encounter status Past or Other Problems Problem ClassificationProblemDateDocumented DateEpisodic/ChronicE Codes: Fall (1 source)Fall from bed, initial encounter; Translations: [FALL FROM BED INITIAL ENCOUNTER]Onset: 69-05-8296IqspnibeXdaytxvjkr disorders (5 sources)Esophageal disorders; Translations: [Gastroesophageal reflux disease with esophagitis without hemorrhage]Other aftercare (1 source)MCFP (current) use of oral hypoglycemic drugs; Translations: [USP USE ORAL HYPOGLYCEMIC DX]Onset: 17-39-4307FdmkaqtdFogrz female genital disorders (1 source)Dystrophy of vulvaOnset: 024001-84-6338HdzbprfwOvmrg lower respiratory disease (4 sources)Pleurodynia; Translations: [PLEURODYNIA]Onset: 42-67-7671Ujpirmqh Spondylosis; intervertebral disc disorders; other back problems (2 sources)Muscle spasm of back; Translations: [Dorsalgia, unspecified]Onset: 10-45-6551VubwnnooJmqku infection (2 sources)Disease caused by 2019-nCoV; Translations: [COVID-19] Results Test NameValueInterpretationReference RangeFacilityAppearance of UrineOrdered By: Kenan Donald on 21-31-0022Rsrzkaxrwn (U)Urine appearanceCleMercy Health Perrysburg HospitalBacteria [Presence] in Urine by AutomatedOrdered By: Kenan Donald on 01-26-8110Obqevmih Auto Ql (U)Bacteria [Presence] in Urine by AutomatedNone SeenOhio State East HospitalBilirubin Test strip Ql (U) Ordered By: Kenan Donald on 92-56-1576Qisbiyewp Ql (U)Bilirubin.total [Presence] in Urine by Test stripNegativeOhio State East HospitalColor Auto (U)Ordered By: Kenan Donald on 53-97-8870Gmcgm (U)Color of Urine by Auto YellowOhio State East HospitalDipstick and Microscopicon 07-23-2024 Appearance (U)ClearNormalClearThe [facility] Physician GroupComment on above: Order Comment: Name Collection Type:: Clean-Voided MidstreamPerformed By: #### ADDONUAPLUS #### [address] [place] [address] USABacteria,UrineNone SeenNormalNone SeenHca [facility] Hospital Physician GroupComment on above:Order Comment: Name Collection Type:: Clean- Voided MidstreamPerformed By: #### ADDONUAPLUS #### [facility] [address] [place] [address] USABilirubin,UrineNegativeNormalNegativeHca [facility] Physician GroupComment on above:Order Comment: Name Collection Type:: Clean- Voided MidstreamPerformed By: #### ADDONUAPLUS #### [facility] [address] [place] [address] USAColor (U)YellowNormalYellowThe [facility] Physician Group Comment on above:Order Comment: Name Collection Type:: Clean-Voided Midstream Performed By: #### ADDONUAPLUS #### [facility] [address] [place] [address] USAGlucose Ql (U)NormalNormalNormalThe [facility] Physician GroupComment on above:Order Comment: Name Collection Type:: Clean-Voided MidstreamPerformed By: #### ADDONUAPLUS #### [facility] [address] [place] [address] USAHyaline Casts,UrineNoneNormal0-8The [facility] Physician GroupComment on above:Order Comment: Name Collection Type:: Clean-Voided MidstreamPerformed By: #### ADDONUAPLUS #### [facility] [address] [place] [address] USAKetones Ql (U)NegativeNormalNegativeHca [facility] Physician GroupComment on above:Order Comment: Name Collection Type:: Clean- Voided MidstreamPerformed By: #### ADDONUAPLUS #### [facility] [address] [place] [address] USALeukocyte esterase Test strip Ql (U)NegativeNormalNegative [facility] Physician GroupComment on above:Order Comment: Name Collection Type:: Clean-Voided MidstreamPerformed By: #### ADDONUAPLUS #### [address] [address] USAMucus,UrineRareNormalThe [facility] Physician GroupComment on above:Order Comment: Name Collection Type:: Clean-Voided MidstreamResult Comment: PERFORMED BY: [place] [address] PATHOLOGIST FIGURINE MAKER ESTHER CANNON M.D.Performed By: #### ADDONUAPLUS #### [place] [address] USANitrite,UrineNegativeNormalNegativeThe [facility] Physician GroupComment on above:Order Comment: Name Collection Type:: Clean-Voided MidstreamPerformed By: #### ADDONUAPLUS #### [place] [address] USAOccult Blood,UrineNegativeNormalNegativeThe [facility] Physician GroupComment on above:Order Comment: Name Collection Type:: Clean- Voided MidstreamPerformed By: #### ADDONUAPLUS #### [place] [address] USApH (U)7.0 [pH]Normal5.0-9.0The [facility] Comment on above:Order Comment: Name Collection Type:: Clean-Voided Midstream Performed By: #### ADDONUAPLUS #### [place] [address] USAProtein,UrineNegativeNormalNegativeThe [facility] Physician GroupComment on above:Order Comment: Name Collection Type:: Clean-Voided MidstreamPerformed By: #### ADDONUAPLUS #### [place] [address] USARBC,Akzmj6-3Cpewtx6-7Ncm [facility] Physician GroupComment on above:Order Comment: Name Collection Type:: Clean-Voided MidstreamPerformed By: #### ADDONUAPLUS #### [place] [address] USASpecificy Parker,Urine1.226Zaqlue3.001-1.030The [facility] Physician GroupComment on above:Order Comment: Name Collection Type:: Clean- Voided MidstreamPerformed By: #### ADDONUAPLUS #### [facility] [address] [place] [address] USASquamous Epithelial Cell,Qlloo0-3Sesrvd3-8Mby [facility] Physician GroupComment on above:Order Comment: Name Collection Type:: Clean- Voided MidstreamPerformed By: #### ADDONUAPLUS #### [facility] [address] [place] [address] USAUrobilinogen,UrineNormalNormalNormalThe [facility] Physician GroupComment on above:Order Comment: Name Collection Type:: Clean- Voided MidstreamPerformed By: #### ADDONUAPLUS #### [facility] [address] [place] [address] USAWBC,Zjhkn1-8Keoihz3-5Vps [facility] Physician GroupComment on above:Order Comment: Name Collection Type:: Clean-Voided MidstreamPerformed By: #### ADDONUAPLUS #### [place] [address] USAEpithelial cells.squamous [#/area] in Urine sediment by Automated countOrdered By: Kenan Donald on 94-49-0794Cxaolfdoro cells.squamous Auto (Urine sed) [#/Area]Epithelial cells.squamous [#/area] in Urine sediment by Automated count0-2FMedina HospitalErythrocytes [#/area] in Urine sediment by Automated countOrdered By: Kenan Donald on 05-36-1567AYC Auto (Urine sed) [#/Area]Erythrocytes [#/area] in Urine sediment by Automated count 0-4FMedina HospitalGlucose [Mass/volume] in Urine by Test strip Ordered By: Kenan Donald on 33-09-8550Nwcducj Test strip (U) [Mass/Vol]Glucose [Mass/volume] in Urine by Test stripNormZanesville City Hospital Hemoglobin Test strip Ql (U)Ordered By: Kenan Donald on 68-60-5604Tgdhbzgtka Ql (U)Hemoglobin [Presence] in Urine by Test stripNegativeOhio State East HospitalHyaline casts [#/area] in Urine sediment by Automated countOrdered By: Kenan Donald on 77-78-9843Eoamgfb casts Auto (Urine sed) [#/Area]Hyaline casts [#/area] in Urine sediment by Automated count0-8[facility] East HospitalKetones Test strip Ql (U)Ordered By: Kenan Donald on 70-37-8225Csvzyty Ql (U)Ketones [Presence] in Urine by Test stripNegFirelands Regional Medical CenterLeukocyte esterase [Presence] in Urine by Test stripOrdered By: Kenan Donald on 68-01-4031Qyehcmhfj esterase Test strip Ql (U)Leukocyte esterase [Presence] in Urine by Test stripNegFirelands Regional Medical CenterLeukocytes [#/area] in Urine sediment by Automated countOrdered By: Kenan Donald on 27-19-0998NVA Auto (Urine sed) [#/Area]Leukocytes [#/area] in Urine sediment by Automated count0-4FMedina HospitalMucus [Presence] in Urine by AutomatedOrdered By: Kenan Donald on 42-96-3377Zxfmr Auto Ql (U)Mucus [Presence] in Urine by AutomatedOhio State East HospitalNitrite Test strip Ql (U)Ordered By: Kenan Donald on 45-80-1178Aidndwd Ql (U)Nitrite [Presence] in Urine by Test stripNegFirelands Regional Medical CenterProtein Test strip (U) [Mass/Vol]Ordered By: Kenan Donald on 07-23-2024 Protein (U) [Mass/Vol]Protein [Mass/volume] in Urine by Test stripEast Ohio Regional Hospitalpecific gravity Test strip (U) [Rel density] Ordered By: Kenan Donald on 98-86-9941Kszorzug gravity (U) [Rel density] Specific gravity of Urine by Test strip1.001-1.030[facility] State East HospitalUrobilinogen Test strip (U) [Mass/Vol]Ordered By: Kenan Donald on 22-00-9383Tsguyuspzpct (U) [Mass/Vol]Urobilinogen [Mass/volume] in Urine by Test stripNormalOhio State East HospitalpH Test strip (U)Ordered By: Kenan Donald on 88-91-6600bO (U)pH of Urine by Test strip5.0-9.0[facility] State East HospitalNo Panel Informationon 18-52-6803Jgnyhqupt Study observation (narrative)[facility] 2 [facility] 06-13-2024 Imaging Result: AP, lateral views are [...] Anterior osteophytes over the tibiotalar joint. Diffuse osteopenia.[facility] HospitalXR Foot - right 3 Viewson 07-77-5439Vcpnynn Result: AP, medial oblique, calcaneal axial views are weight-bearing. Approximately 5 degrees of rearfoot valgus. Degenerative changes of the naviculocuneiform, talonavicular joints as well as mild degenerative changes of the tarsometatarsal joints. No fractures or dislocations. Slight osteopenia.[facility] HospitalMG MAMM SCREEN 3D KAITLYNN CADon 67-18-1560YS MAMM SCREEN 3D KAITLYNN CADPatient: ROSALIND RAMEY Exam Date: 01/27/2022 : 1950 Gender:F Ordering : DR KENAN DONALD D.O. Admission #: [id number] Family : Order #: [id number] CLICK HERE TO VIEW EXAM RADIOLOGY REPORT [...] Treatments None Family Cancers None LOCATION: [facility] BREAST COMPOSITION: Heterogeneously dense,which may obscure [...] by: Oneil Riggs MD on 01/27/2022 at 13:12[facility] MICROALBUMIN URINEon 59-61-8125Zjfqorq, Urine22.7 ug/mLNormalNot Estab.The [facility] CenterComment on above:Performed By: #### MALBLC #### [facility] [address] [place] [address] Dr. Alex ColemanC AUTO DIFFon 28-39-1382WOCH #0.0 103/ulNormal0.0-0.1The [facility] CenterComment on above:Performed By: #### MALBLC #### [facility] [address] [place] [address] Dr. Alex GallegoBasophils/100 WBC (Bld)0.5 %Normal0.2-2.0[facility] Comment on above:Performed By: #### MALBLC #### [facility] [address] [place] [address] Dr. Alex Lam #0.2 103/ulNormal0.0-0.7The [facility] CenterComment on above: Performed By: #### STEVENBLC #### [facility] [address] [place] [address] Dr. Alex Hoganosinophils/100 WBC (Bld)2.2 %Normal0.9-7.0The [facility] Comment on above:Performed By: #### STEVENBLC #### [facility] [address] [place] [address] Dr. Alex Hoganrythrocyte distribution width (RBC) [Ratio]13.7 %Fkxlqu20.0-15.0 [facility] CenterComment on above:Performed By: #### MALBLC #### [facility] [address] [place] [address] Dr. Alex GallegoHematocrit (Bld) [Volume fraction]45.6 %Vawnsp02.0-48.0The [facility] CenterComment on above:Performed By: #### MALBLC #### [facility] [address] [place] [address] Dr. Yilan ChangHemoglobin (Bld) [Mass/Vol]15.1 g/pSDahkth85.0-16.0The [facility] CenterComment on above:Performed By: #### KYLE #### [facility] [address] [place] [address] Dr. Alex Rico #0.02 10e3/ulNormal0.00-0.03The [facility] CenterComment on above:Performed By: #### KYLE #### [facility] [address] [place] [address] Dr. Alex Rico %0.2 %Normal0.0-0.5The [facility] CenterComment on above: Performed By: #### KYLE #### [facility] [address] [place] [address] Dr. Alex Kang #3.7 103/ulNormal1.2-3.8The [facility] CenterComment on above:Performed By: #### KYLE #### [facility] [address] [place] [address] Dr. Alex Oglesbyhocytes/100 WBC (Bld)46.1 %Ubhpuk53.5-60.0The [facility] CenterComment on above:Performed By: #### KYLE #### [facility] [address] [place] [address] Dr. Alex BeaverUAL DIFF REQNONormalThe [facility] CenterComment on above: Performed By: #### KYLE #### [facility] [address] [place] [address] Dr. Alex Swanson (RBC) [Entitic mass]31.0 zjViyvab38.7-34.0The [facility] CenterComment on above:Performed By: #### KYLE #### [facility] [address] [place] [address] Dr. Alex Manzano (RBC) [Mass/Vol]33.1 g/eVAmxzic07.9-35.2The [facility] CenterComment on above:Performed By: #### KYLE #### [facility] [address] [place] [address] Dr. Alex ManzanoV (RBC) [Entitic vol]93.6 wWXejyxi87.0-99.0The [facility] Hospitalment on above:Performed By: #### SACHIC #### [facility] [address] [place] [address] Dr. Alex Burrell #0.6 103/ulNormal0.3-0.8The [facility] CenterComment on above:Performed By: #### SACHIC #### [facility] [address] [place] [address] Dr. Alex Tamocytes/100 WBC (Bld)7.9 %Normal1.7-12.0The [facility] Comment on above:Performed By: #### KYLE #### [facility] [address] [place] [address] Dr. Alex Guerrero #3.5 103/ulNormal1.4-6.5The [facility] CenterComment on above:Performed By: #### SACHIC #### [facility] [address] [place] [address] Dr. Alex Garciautrophils/100 WBC (Bld)43.1 %Nrlnaw10.0-75.0The [facility] CenterComment on above:Performed By: #### SACHIC #### [facility] [address] [place] [address] Dr. Alex Bauerlet mean volume (Bld) [Entitic vol]9.5 fLNormal9.5-13.5The [facility] Hospitalment on above:Performed By: #### SACHIC #### [facility] [address] [place] [address] Dr. Alex GallegoPLT265 103/xbKvudse132-359Psq [facility] CenterComment on above: Performed By: #### SACHIC #### [facility] [address] [place] [address] Dr. Alex GallegoRBC4.87 106/ulNormal4.20-5.40The [facility]ghia HospitalComment on above:Performed By: #### SACHIC #### [facility] [address] [address] [address] Alex GallegoWBC8.1 103/ulNormal4.0-11.0The [facility] on above: Performed By: #### SACHIC #### [facility] [address] [address] [address] Alex GallegoGLYCOHEMOGLOBIN A1Con 92-12-8187GAW RECOMMENDATIONSEE BELOWNormwv The [facility] CenterComment on above:Result Comment: ADA RECOMMENDED LIMIT 4.0 - 6.0 ADA THERAPEUTIC TARGET < 7.0 ACTION SUGGESTED > 7.0Performed By: #### SACHIC #### [facility] [address] [address] [address] Alex GallegoGlucose [Mass/Vol]117 mg/dLNoParkview Health Bryan HospitalComment on above:Performed By: #### KYLE #### [facility] [address] [address] [address] Alex GallegoHbA1c (Bld) [Mass fraction]5.7 %Normal4.5-6.2The [facility] CenterComment on above:Performed By: #### SACHIC #### [facility] [address] [place] [address] Dr. Alex GallegoLIPID PROFILEon 50-49-2021RIXF-HDL RATIO NORMSEE [facility] HospitalComun[facility] on above:Result Comment: 3.3 - 4.4 LOW RISK 4.4 - 7.1 AVERAGE RISK 7.1 - 11.0 MODERATE RISK >11.0 HIGH RISKPerformed By: #### LIPID, ALT, BMP #### [facility] [address] [address] [address] Alex GallegoCholesterol [Mass/Vol]195 mg/dLNormal<=200The [facility] Comment on above:Performed By: #### LIPID, ALT, BMP #### [facility] [address] [address] [address] Alex GallegoCholesterol in HDL [Mass/Vol]45 mg/iFLaagef25-63KuiFulton County Health CenterComment on above:Performed By: #### LIPID, ALT, BMP #### [facility] [address] [place] [address] Dr. Alex Tranesterol in LDL [Mass/Vol]120.0 mg/dLNoParkview Health Bryan HospitalComment on above:Performed By: #### LIPID, ALT, BMP #### [facility] [address] [place] [address] Dr. Alex Oviedo.total/Cholesterol in HDL [Mass ratio]4.3 {ratio} NormalFulton County Health CenterComment on above:Performed By: #### LIPID, ALT, BMP #### [facility] [address] [place] [address] Dr. Alex Rodrigez NORMAL> or = 60 mg/dl - LOW CARDIOVASCULAR RISK <40 mg/dl - HIGH CARDIOVASCULAR RISKNoParkview Health Bryan HospitalComment on above:Performed By: #### LIPID, ALT, BMP #### [facility] [address] [place] [address] Dr. Alex Kang CALC NORMALSEE BELOWNoParkview Health Bryan HospitalComment on above:Result Comment: <100 mg/dl OPTIMAL 100 - 129 mg/dl NEAR OR ABOVE OPTIMAL 130 - 159 mg/dl BORDERLINE HIGH 160 - 189 mg/dl HIGH >190 mg/dl VERY HIGH Performed By: #### LIPID, ALT, BMP #### [facility] [address] [place] [address] Dr. Alex GallegoTriglyceride [Mass/Vol]150 mg/dLNormal<=150The [facility] Comment on above:Performed By: #### LIPID, ALT, BMP #### [facility] [address] [place] [address] Dr. Alex GallegoVLDL CALC30.0 mg/dLNoParkview Health Bryan HospitalComment on above: Performed By: #### LIPID, ALT, BMP #### [facility] [address] [place] [address] Dr. Alex GallegoPROF CHEM 8 (BAS METB)on 63-51-7166Uwbhr gap [Moles/Vol]13.6 mmol/LNormalThe [facility] CenterComment on above:Performed By: #### LIPID, ALT, BMP #### [facility] [address] [place] [address] Dr. Alex GallegoCalcium [Mass/Vol]9.3 mg/dLNormal8.5-10.1The [facility] Comment on above:Performed By: #### LIPID, ALT, BMP #### [facility] [address] [address] [address] Alex GallegoChloride [Moles/Vol]103 mmol/LUnswmy95-333Qdz [facility] Comment on above:Performed By: #### LIPID, ALT, BMP #### [facility] [address] [place] [address] Dr. Alex GallegoCO2 [Moles/Vol]27.6 mmol/DKodvpa73.0-32.0[facility] Comment on above:Performed By: #### LIPID, ALT, BMP #### [facility] [address] [place] [address] Dr. Alex GallegoCreatinine [Mass/Vol]0.75 mg/dLNormal0.55-1.02The [facility] CenterComment on above:Performed By: #### LIPID, ALT, BMP #### [facility] [address] [place] [address] Dr. Alex HoganGFR-AF FINNISH>60Normal>=60The [facility] CenterComment on above:Performed By: #### LIPID, ALT, BMP #### [facility] [address] [place] [address] Dr. Alex HoganGFR-NON AF FINNISH>60Normal>=60The [facility] CenterComment on above:Performed By: #### LIPID, ALT, BMP #### [facility] [address] [place] [address] Dr. Alex GallegoGlucose [Mass/Vol]126 mg/dLCritically gnmw72-730Jkz [facility] CenterComment on above:Performed By: #### LIPID, ALT, BMP #### [facility] [address] [place], [place] [address] Dr. Alex GallegoPotassium [Moles/Vol]4.2 mmol/LNormal3.5-5.1The [facility] Comment on above:Performed By: #### LIPID, ALT, BMP #### [facility] [address] [place] [address] Dr. Alex GallegoSodium [Moles/Vol]140 mmol/FHpjvax179-766Kos [facility] Comment on above:Performed By: #### LIPID, ALT, BMP #### [facility] [address] [place] [address] Dr. Alex GallegoUrea nitrogen [Mass/Vol]16.0 mg/dLNormal7.0-18.0The [facility] CenterComment on above:Performed By: #### LIPID, ALT, BMP #### [facility] [address] [place] [address] Dr. Alex GallegoUrea nitrogen/Creatinine [Mass ratio]21.3 mg/mgNoParkview Health Bryan HospitalComment on above:Performed By: #### LIPID, ALT, BMP #### [facility] [address] [place] [address] Dr. Alex Vyas 40-09-8420WTQ [Catalytic activity/Vol]58 U/CMshwvv25-62Tio [facility] CenterComment on above:Performed By: #### LIPID, ALT, BMP #### [facility] [address] [place] [address] Dr. Aelx GallegoXR RIBS LT PA Crystal 07-39-8672UW RIBS LT PA CHEXAMINATION: XR RIBS LT PA CH HISTORY: Contusion [...] Electronically authenticated by: ONEIL RIGGS Date: 2021-11-16 12:33[facility] AUTO DIFFon 33-83-1857WOBN #0.0 103/ulNormal0.0-0.1The [facility] CenterComment on above:Performed By: #### CBC #### [facility] [address] [place] [address] Dr. Alex GallegoBasophils/100 WBC (Bld)0.5 %Normal0.2-2.0The [facility] Comment on above:Performed By: #### CBC #### [facility] [address] [place] [address] Dr. Alex Lam #0.2 103/ulNormal0.0-0.7The [facility] CenterComment on above: Performed By: #### CBC #### [facility] [address] [place] [address] Dr. Alex Hoganosinophils/100 WBC (Bld)2.1 %Normal0.9-7.0The [facility] Comment on above:Performed By: #### CBC #### [facility] [address] [place] [address] Dr. Alex Hoganrythrocyte distribution width (RBC) [Ratio]14.1 %Aspino71.0-15.0 The [facility] CenterComment on above:Performed By: #### CBC #### [facility] [address] [place] [address] Dr. Alex GallegoHematocrit (Bld) [Volume fraction]43.1 %Mzhmdk24.0-48.0The [facility] CenterComment on above:Performed By: #### CBC #### [facility] [address] [place] [address] Dr. Alex GallegoHemoglobin (Bld) [Mass/Vol]14.5 g/sZNwmskn42.0-16.0The [facility] CenterComment on above:Performed By: #### CBC #### [facility] [address] [place] [address] Dr. Alex Rico #0.01 10e3/ulNormal0.00-0.03The [facility] CenterComment on above:Performed By: #### CBC #### [facility] [address] [address] [address] Alex Rico %0.1 %Normal0.0-0.5The [facility] CenterComment on above: Performed By: #### CBC #### [facility] [address] [place] [address] Dr. Alex Kang #2.8 103/ulNormal1.2-3.8The [facility] CenterComment on above:Performed By: #### CBC #### [facility] [address] [place] [address] Dr. Alex Oglesbyhocytes/100 WBC (Bld)36.8 %Lrmvjh78.5-60.0The [facility] on above:Performed By: #### CBC #### [facility] [address] [place] [address] Dr. Alex BeaverUAL DIFF REQNONormalThe [facility] CenterComment on above: Performed By: #### CBC #### [facility] [address] [place] [address] Dr. Alex Manzano (RBC) [Entitic mass]30.9 sgZdaxxo88.7-34.0The [facility] CenterComment on above:Performed By: #### CBC #### [facility] [address] [place] [address] Dr. Alex Manzano (RBC) [Mass/Vol]33.6 g/gFWoikib08.9-35.2The [facility] on above:Performed By: #### CBC #### [facility] [address] [place] [address] Dr. Alex Manzano (RBC) [Entitic vol]91.9 sMBxgouh16.0-99.0The [facility] CenterComuniversity of michigan hospital on above:Performed By: #### CBC #### [facility] [address] [place] [address] Dr. Alex Burrell #0.6 103/ulNormal0.3-0.8The [facility] CenterComment on above:Performed By: #### CBC #### [facility] [address] [place] [address] Dr. Alex Tamocytes/100 WBC (Bld)7.6 %Normal1.7-12.0The [facility] Comment on above:Performed By: #### CBC #### [facility] [address] [place] [address] Dr. Alex GarciaUT #4.0 103/ulNormal1.4-6.5The [facility] CenterComment on above:Performed By: #### CBC #### [facility] [address] [place] [address] Dr. Alex Garciautrophils/100 WBC (Bld)52.9 %Hfcigp53.0-75.0The [facility] CenterComment on above:Performed By: #### CBC #### [facility] [address] [place] [address] Dr. Alex Bauerlet mean volume (Bld) [Entitic vol]9.5 fLNormal9.5-13.5The [facility] CenterComment on above:Performed By: #### CBC #### [facility] [address] [place] [address] Dr. Alex GallegoPLT255 103/nnQkqwoj162-563Yjm [facility] CenterComment on above: Performed By: #### CBC #### [facility] [address] [place] [address] Dr. Alex GallegoRBC4.69 106/ulNormal4.20-5.40The [facility] CenterComment on above:Performed By: #### CBC #### [facility] [address] [place] [address] Dr. Alex GallegoWBC7.5 103/ulNormal4.0-11.0The [facility] CenterComment on above: Performed By: #### CBC #### [facility] [address] [place] [address] Dr. Alex Curry CHEST WO W CONon 19-15-6171GBP CHEST WO W CONEXAMINATION: CTA CHEST WO W CON HISTORY: CHEST PAIN, UNSPECIFIED [...] Electronically authenticated by: RANDI FRANKLIN Date: 2021-10-18 08:45[facility] 14(COMP METB)on 72-20-5471Enbcwfa [Mass/Vol]4.1 g/dLNormal 3.4-5.0The [facility] CenterComment on above:Performed By: #### CMP #### [facility] [address] [place] [address] Dr. Alex GallegoAlbumin/Globulin [Mass ratio]1.1 {ratio}NormalThe [facility] CenterComment on above:Performed By: #### CMP #### [facility] [address] [place] [address] Dr. Alex Bowens [Catalytic activity/Vol]85 U/DRhekmx91-659Bqt [facility] CenterComment on above:Performed By: #### CMP #### [facility] [address] [place] [address] Dr. Alex Hope [Catalytic activity/Vol]69 U/LCritically lmnn00-18Zwy [facility] CenterComment on above:Performed By: #### CMP #### [facility] [address] [place] [address] Dr. Alex Philip gap [Moles/Vol]14.3 mmol/LNormalThe [facility] Comment on above:Performed By: #### CMP #### [facility] [address] [place] [address] Dr. Alex GallegoAST [Catalytic activity/Vol]33 U/SJhfiqb85-27Cpp [facility] CenterComment on above:Performed By: #### CMP #### [facility] [address] [place] [address] Dr. Alex GallegoBilirubin [Mass/Vol]0.5 mg/dLNormal0.2-1.0The [facility] Comment on above:Performed By: #### CMP #### [facility] [address] [place] [address] Dr. Alex GallegoCalcium [Mass/Vol]8.9 mg/dLNormal8.5-10.1[facility] Comment on above:Performed By: #### CMP #### [facility] [address] [place] [address] Dr. Alex GallegoChloride [Moles/Vol]106 mmol/HYgrdql27-069Iym [facility] Comment on above:Performed By: #### CMP #### [facility] [address] [address] [address] Alex GallegoCO2 [Moles/Vol]25.7 mmol/TCesjpc94.0-32.0The [facility] Comment on above:Performed By: #### CMP #### [facility] [address] [address] [address] Alex GallegoCreatinine [Mass/Vol]0.86 mg/dLNormal0.55-1.02The [facility] CenterComment on above:Performed By: #### CMP #### [facility] [address] [address] [address] Johnson ChangEGFR-AF FINNISH>60Normal>=60The [facility] CenterComment on above:Performed By: #### CMP #### [facility] [address] [place] [address] Dr. Alex HoganGFR-NON AF FINNISH>60Normal>=60The [facility] CenterComment on above:Performed By: #### CMP #### [facility] [address] [address] [address] Alex GallegoGlobulin (S) [Mass/Vol]3.6 g/dLNormalThe [facility] CenterComment on above:Performed By: #### CMP #### [facility] [address] [address] [address] Alex GallegoGlucose [Mass/Vol]144 mg/dLCritically wpdg87-940Dzj [facility] CenterComment on above:Performed By: #### CMP #### [facility] [address] [address] [address] Alex GallegoPotassium [Moles/Vol]4.0 mmol/LNormal3.5-5.1The [facility] Comment on above:Performed By: #### CMP #### [facility] [facility] [address] [address] [address] Alex GallegoProtein [Mass/Vol]7.7 g/dLNormal6.4-8.2The [facility] Comment on above:Performed By: #### CMP #### [facility] [address] [address] [address] Alex GallegoSodium [Moles/Vol]142 mmol/KIpuedz264-618Nwd [facility] Comment on above:Performed By: #### CMP #### [facility] [address] [address] [address] Alex GallegoUrea nitrogen [Mass/Vol]19.0 mg/dLCritically high7.0-18.0The [facility] CenterComment on above:Performed By: #### CMP #### [facility] [address] [address] [address] Alex Elena nitrogen/Creatinine [Mass ratio]22.1 mg/mgNoParkview Health Bryan HospitalComment on above:Performed By: #### CMP #### [facility] [address] [place] [address] Dr. Alex GallegoXR CHEST 1 Von 87-04-4792DP CHEST 1 VEXAM: XR CHEST 1 V 10/18/2021. HISTORY: Pain [...] Electronically authenticated by: BRUCE PAGE Date: 2021-10-18 07:[address] [place], [place] [address]DAT - TSHon 27-90-8672JPO8.848 uIU/mLNormal0.470-4.680The [facility] CenterComment on above:Performed By: #### MALBLC #### [facility] [address] [address] [address] [facility] Huber [facility] BELOWSelect Medical Specialty Hospital - Boardman, IncComment on above: Result Comment: <0.34 UIU/ml HYPERTHYROID 0.34-5.60 UIU/ml EUTHYROID >5.60 UIU/ml HYPOTHYROIDPerformed By: #### MALBLC #### [facility] [address] [address] [address] Alex GallegoGLYCOHEMOGLOBIN A1Con 52-76-6002BEC RECOMMENDATIONSEE BELOWNormal The [facility] CenterComuniversity of mich[facility] on above:Result Comment: ADA RECOMMENDED LIMIT 4.0 - 6.0 ADA THERAPEUTIC TARGET < 7.0 ACTION SUGGESTED > 7.0Performed By: #### STEVENBLC #### [facility] [address] [address] [address] Alex GallegoGlucose [Mass/Vol]123 mg/dLNormalThe [facility] CenterComment on above:Performed By: #### MALBLC #### [facility] [address] [address] [address] Alex GallegoHbA1c (Bld) [Mass fraction]5.9 %Normal4.5-6.2The [facility] CenterComment on above:Performed By: #### STEVENBLC #### [facility] [address] [address] [address] Alex York DIGITAL SCREEN W CAD BILATERALOrdered By: Andrew Mix on 14-86-6607Az evidence of malignancy. Advise annual screening mammography. BREAST DENSITY SUMMARY C: The breasts are heterogeneously dense which may obscure small masses. BI-RADS 1 BIRADS: BIRADS - CATEGORY 1 Negative, no evidence of malignancy in either breast. OVERALL ASSESSMENT - NEGATIVE A letter of notifi cation will be sent to the patient regarding the results. RECOMMENDATION: Routine bilateral annual screening mammography is recommended. Follow-up screening mammogram in 1 year is advised.[employer] Phone: eXAMINATION: BILATERAL DIGITAL SCREENING MAMMOGRAM, 03/05/2019 TECHNIQUE: CC [...] can obscure small masses. No skin thickening, contourchanges, malignant type microcalcifications areas of architectural distortion significant interval changes are noted.[employer] Phone: ekip, [facility] Incoming Radiant Results From BoxCate/Pacs - 03/07/2019 11:48 AM EST EXAMINATION: BILATERAL [...] screening mammogram in 1 year is advised. [employer] Phone: MAM DIGITAL SCREEN W OR WO CAD BILATERALon 03-07-2019 MARKO DIGITAL SCREEN W OR WO CAD BILATERALEXAMINATION: BILATERAL DIGITAL SCREENING MAMMOGRAM, 03/05/2019 TECHNIQUE: CC [...] Recipients: Kenan Donald DO - Fax Final resultNoKeenan Private Hospital Vital Signs Date TimeVital SignValuePerforming NfhyewwatQotgahsx81-79-6297 08:36-0400Body kaprpj754.94 cmBenjamin Ball DO Work Phone: [phone]10-17-2025 08:36-0400 Body mass index (BMI) [Ratio]32.5 kg/f5Aoessqhy Ball DO Work Phone: [phone]10-17-2025 08:36-0400 Body eeiocs10.24 kgBenjamin Ball DO Work Phone: [phone])46044 [address]10-17-2025 08:36-0400 Diastolic blood boemvcvh13 mm[Hg]Kenan Ball DO Work Phone: [phone]10-17-2025 08:36-0400 Heart rate77 /minBenjamin Ball DO Work Phone: [phone] [address]10-17-2025 08:36-0400 Respiratory rate12 /minBenjamin Ball DO Work Phone: [phone])17044 [address]10-17-2025 08:36-0400 Systolic blood suktplpu833 mm[Hg]Kenan Ball DO Work Phone: [phone]05-21-2025 08:59-0400 Body mmozzj452.5 cmAnthony Rusher DPM Work Phone: [facility] CenterJcfiomgxwu18-79-2322 08:59-0400Body mass index (BMI) [Ratio]31.09 kg/j0Fysdqpl Rusher DPM Work Phone: [facility] CenterYqzzbfeabu30-37-9817 08:59-0400Body pxlzsy93.11 kgAnthony Rusher DPM Work Phone: [facility] CenterRqmtjvoeat83-90-4076 08:56-0400Body gcjdwy822.5 cmAnthony Rusher DPM Work Phone: [facility] CenterVbbdpewiab01-58-6520 08:56-0400Body mass index (BMI) [Ratio]31.09 kg/t8Hrkzphe Rusher DPM Work Phone: [facility] CenterZvenplmwsn02-81-3095 08:56-0400Body iexici25.11 kgAnthony Rusher DPM Work Phone: [facility] CenterDrolvlhzvi75-72-1459 09:42-0500Body gveklg494.94 cm[facility]02-18-2025 09:42-0500Body mass index (BMI) [Ratio]31.2 kg/w3EjeopefqbOhio State East Hospital02-18-2025 09:42-0500Body .95 kgOhio [facility] Hospital02-18-2025 09:42-0500Diastolic blood migdaedx18 mm[Hg][facility]02-18-2025 09:42-0500 Heart rate86 /[facility]02-18-2025 09:42-0500 Respiratory rate12 /[facility]02-18-2025 09:42-0500 Systolic blood axvqounv877 mm[Hg][facility]01-07-2025 15:26-0500Body mass index (BMI) [Ratio]31.09 kg/m2Mona Nataprawira DO Work Phone: [facility] CenterJvwfoloxzo05-34-1916 15:26-0500Body vcodcb30.11 kgMona Nataprawira DO Work Phone: [facility] CenterLdvmllxrsi62-15-6206 15:26-0500Diastolic blood zlmjpupb50 mm[Hg]Yojana Nataprawira DO Work Phone: [facility] CenterCvucstnypt50-98-7605 15:26-0500Systolic blood mm[Hg]Yojana Nataprawira DO Work Phone: [facility] CenterNyonblowrq86-42-0632 10:01-0400Body mass index (BMI) [Ratio]31.2 kg/f5LxhbtpbuiOhio State East Hospital10-15-2024 10:01-0400 Diastolic blood cugsptus94 mm[Hg][facility]10-15-2024 10:01-0400Systolic blood qwxsygyj992 mm[Hg][facility] 01-03-2024 09:39-0400Body ldazwl383.94 cm[facility] 01-03-2024 09:39-0400Body fnixrv86.01 kg[facility] 01-03-2024 09:39-0400Heart rate71 /[facility] 01-03-2024 09:39-0400Respiratory rate12 /[facility] 12-20-2022 10:00-0400Body .94 cmBenjamin Ball Other [facility] [employer] Other 10-02-2023 10:00-0400Body mass index (BMI) [Ratio] 29.28 kg/o6Ksoucpkj Ball Other [employer] Other 10-02-2023 10:00-0400Body ylokto98.31 kgBenjamin Ball Other [employer] Other 10-02-2023 10:00-0400Diastolic blood pljfcyxs35 mm[Hg] Kenan Ball Other [employer] Other 10-02-2023 10:00-0400Respiratory rate12 /minBenjamin Ball Other [employer] Other 10-02-2023 10:00-0400Systolic blood ntubucpy669 mm[Hg] Kenan Ball Other [employer] Other 01-25-2023 10:00-0500Body .94 cmBenjamin Ball Other [employer] Other 01-25-2023 10:00-0500Body mass index (BMI) [Ratio] 30.19 kg/n5Cchjcrej Ball Other [employer] Other 01-25-2023 10:00-0500Body mkwzasehjfe73.9 [degF] Kenan Donald Other [employer] Other 01-25-2023 10:00-0500Body ephdpd54.49 kgBenneftaly Donald Other [employer] Other 01-25-2023 10:00-0500Diastolic blood fxrgzmuc17 mm[Hg] Kenan Donald Other [employer] Other 01-25-2023 10:00-7699MoB4% (BldA) [Mass fraction]98 % Kenan Donald Other [employer] Other 01-25-2023 10:00-0500Systolic blood avrylufi901 mm[Hg] Kenan Donald Other [employer] Other Encounters Encounter DateEncounter TypeCare ProviderFacilityStart: 01-04-2025 End: 88-89-5696feorkmmdtkYkmeplth Ball DO Work Phone: -[facility] ClinicStart: 01-04-2025 End: 05-21-3746Cejkeak encounter procedureBenkendalmin Odilon DO-[facility] Work Phone: Start: 08-08-2024 End: 47-93-7157Ehkuar flowsRickiony S Aceher DPM Work Phone: [facility] PODIATRYStart: 08-08-2024 End: 58-08-9577Yotxkf flowsheetAnthony S Rusher DPM Work Phone: [facility]oms PODIATRYStart: 08-08-2024 End: 68-15-3816Xrtlsw outpatient visit 25 minutesAnthony S Rusher DPM Work Phone: noms PODIATRYComment on above: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); Primary osteoarthritis of right ankle; Valgus deformity, not elsewhere classified, right ankleStart: 08-08-2024 End: 48-34-5871eefbthzperUOJVRAN S RUSHERNot AvailableStart: 07-25-2024 End: 75-54-8442Jjxier flowsheetAnthony S Rusher DPM Work Phone: [facility] PODIATRYStart: 07-25-2024 End: 90-10-6307Hsvqpu flowsheetAnthony S Rusher DPM Work Phone: [facility] PODIATRYStart: 07-25-2024 End: 98-41-6544Adnrzh outpatient visit 25 minutesAnthony S Rusher DPM Work Phone: noms PODIATRYComment on above:Primary osteoarthritis of right ankle (Primary Dx); Arthralgia of right foot; Valgus deformity, not elsewhere classified, right ankle; Posterior tibial tendinitis of right lower extremityStart: 07-25-2024 End: 98-16-5543dmbkckscwlXSZHZYP S RUSHERNot AvailableStart: 07-23-2024 End: 96-39-0271Ictcdtx encounter procedureBenjamin Ball DO Work Phone: [facility] [place] Work Phone: Start: 07-23-2024 End: 33-42-3929zqpqqgugrdFnpkxdku Ball DO Work Phone: [facility] Work Phone: Start: 06-13-2024 End: 78-66-2652Dcwvzb outpatient new 45 minutesAnthony S Rusher DPM Work Phone: noms PODIATRYComment on above:Primary osteoarthritis of right ankle (Primary Dx); Valgus deformity, not elsewhere classified, right ankle; Posterior tibial tendinitis of right lower extremity; Instability of right ankle joint; Acute right ankle pain; Right foot pain; Equinus contracture of right ankle; Difficulty walkingStart: 06-13-2024 End: 38-28-5365dbuzgthkisQUQLXRL S RUSHERNot AvailableStart: 06-13-2024 End: 82-57-0514Sgcgij flowsBam Regina Yaakov DPM Work Phone: [facility] PODIATRYStart: 06-13-2024 End: 20-74-7804Qrijxq flowsBam Regina Bello DPM Work Phone: [facility] PODIATRYStart: 05-08-2024 End: 45-00-7109snydmwcqpbGttczsepqWilson [facility] Work Phone: Start: 05-08-2024 End: 38-11-3597Teuwpym encounter procedureYadkin Valley [facility] Physician GroupTri[facility] Work Phone: Start: 03-27-2024 End: 52-73-1861Wtwwizq encounter statusYojana Meneses DO Work Phone: [facility] Work Phone: start: 03-27-2024 End: 13-16-7266Rfepwjfs preventive med est patient 65yrs& olderYojana Huang Natron DO Work Phone: noms OBComment on above:Encounter for gynecological examination (general) (routine) with abnormal findings (Primary Dx); Cystocele, midline; Urge incontinence; Postmenopausal; Screening breast examinationStart: 03-27-2024 End: 06-34-2657xhvfhcrftuJPKN J NATAPRAWIRANot AvailableStart: 03-27-2024 End: 49-54-1076Htfvhh Kimmy Meneses DO Work Phone: [facility] NB OBStart: 03-27-2024 End: 18-60-4315Dldgkv Kimmy Meneses DO Work Phone: [facility] NB OBStart: 01-03-2024 End: 05-57-5494wrrgdqwzxgWfskmebmkOhioHealth [facility] Work Phone: Start: 01-03-2024 End: 79-42-4647Ckinosb encounter procedureYadkin Valley [facility]ician [facility] Work Phone: Start: 41-73-7153Tufkejb encounter procedureChillicothe VA Medical Centertart: 02-02-2023 End: 24-20-6098lqkuwmkrztCehqzakk Ball Other [employer] Other Start: 82-98-0068Cxxlcqfup encounterBenjamin BallYANEG [facility] ClinicStart: 12-22-2022 End: 95-92-1294cfsvoplgrkGjclbact Ball Other [employer] Other Start: 79-70-4073Ccezybhsi encounterBenjamin BallYANEG [facility] ClinicStart: 12-20-2022 End: 06-25-6659uoexwsxkqjRprnyegi Ball Other [employer] Other Start: 73-39-4153Njsptws encounter procedureBenjamin BallFPG [facility] ClinicStart: 11-04-2022 End: 33-63-2904texrbdzagzFkrozafa Ball Other [employer] Other Start: 21-01-2358Iftkignpa encounterBenjamin BallFPG [facility] ClinicStart: 04-14-2022 End: 33-51-8419qhekkomyarGsyyctjw Ball Other [employer] Other Start: 45-44-0213Trdcgj outpatient visit 25 minutes [facility] ClinicStart: 04-08-2022 End: 70-66-3787inqocqyqwrXV KENAN BALLFacility:X9Udtln: 03-29-2022 End: 74-66-7905qichavvubkKqobanps Ball Other [place] [employer] Other Start: 40-30-4749Xliulpapl encounterKenan Donald Medical ClinicStart: 01-27-2022 End: 11-26-5523huohnynmeaYD KENAN BALLFacility:P6Cdxsi: 12-15-2021 End: 43-85-2775ffoctaykylOK KENAN BALLFacility:V4Hilmf: 11-16-2021 End: 38-89-4666fjghreydoxWP KENAN BALLFacility:N1Jrjlo: 10-18-2021 End: 65-14-0850eqjqfquvgdLJ DORENE Levin SMITHFacility:Y2Okxvy: 17-97-2153pfyfmslqxlPY KENAN BALLFacility:P3Yihar: 07-20-2021 End: 36-05-5673vxiqqhmcfkNN NONE LISTED REQUESTFacility:E6Taklm: 03-05-2019 End: 79-09-0561Hajxxlv encounter procedureCOPPER SPRINGS HOSPITALKENDALKRISTIN [facility] Start: 03-05-2019 End: 51-28-7574Svxyiyfjny hospital visit by physicianBethesda North Hospital MammographyComment on above:Screening mammogram for high-risk patient Procedures DateProcedureProcedure DetailPerforming ClinicianStart: 17-61-9635Wqrxvtciig examination ankle 2 Chioma Nuno DPM Work Phone: Start: 07-29-7477Vacxnulng mammography bi 2-view breast inc cadKENAN DONALDStart: 03-05-2019 End: 78-64-8815Wfkxiakvj digital breast tomosynthesis Jayla Mix MD Work Phone: Depression screeningKenan Donald Other Screening for malignant neoplasm of breastKenan Donald Other Plan of Treatment DateCare ActivityDetailAuthorStart: 04-01-2025 End: 89-49-5548Jyrtbru encounter hmxkuahse35/12/2026 9:45 AM EST Office Visit [facility] [address] [address] Yojana Meneses, [address] [address] NOMRegina JOHNSON OBStart: 08-08-2024 End: 29-28-4133Ujvoedb encounter procedureNOMS PODIATRYComment on above: ArrivedStart: 07-25-2024 End: 06-92-4717Oabubrg encounter procedureNOMS PODIATRYComment on above: ArrivedStart: 06-13-2024 End: 56-11-6583Tvpxdra encounter wooltmlup53/26/2025 2:15 PM EDT Office Visit [facility] [address] [place] [id number] Yuni Nuno, DPM [address] [place], [place] [id number] ArrivedNOMS PODIATRYComment on above:ArrivedStart: 03-27-2024 End: 55-15-6513Wuecmoa encounter kwrahxuby01/07/2025 3:00 PM EST Office Visit [facility] [address] [address] Yojana Meneses, [address] [address] ArrivedLAILA JOHNSON OB Comment on above:ArrivedStart: 74-51-2665Rcwowu cancer screenBreast cancer screenGuernsey Memorial Hospital [email or web address] Phone: start: 88-37-9761Bwzeynjcn for malignant neoplasm of breastMammogramNOCT HealthcareStart: 84-69-3041Bghrkk Wellness Visit (AWV)Annual Wellness Visit (AWV)[employer] Phone: start: 70-82-7500YBHZ (modify frequency per FRAX score)DEXA (modify frequency per FRAX score)[employer] Phone: start: 00-99-9814Lkdkrkrkds monitoringCreatinine monitoringCrystal Clinic Orthopedic CenterEnhanceWorks Work Phone: start: 98-78-4273Cexvi cancer screen colonoscopyColon cancer screen colonoscopyCrystal Clinic Orthopedic CenterEnhanceWorks Work Phone: start: 98-46-2518Jycdedyf Vaccine (1 of 2)Shingles Vaccine (1 of 2)[employer] Work Phone: start: 60-90-1059Bbpwsqhr screenDiabetes screenCrystal Clinic Orthopedic CenterEnhanceWorks Work Phone: start: 85-43-5601Dsmlb screenLipid screenCrystal Clinic Orthopedic CenterEnhanceWorks Work Phone: start: 38-18-3254ODpV/Tdap/Td vaccine (1 - Tdap) DTaP/Tdap/Td vaccine (1 - Tdap)[employer] Phone: start: 56-65-9028Pdnfbcgop C screenHepatitis C screen [facility] CenterSlideShare Phone: start: 51-99-4423Iitgqljpj monitoringPotassium [facility] HealthEnhanceWorks Work Phone: start: 99-85-6407Bmjhwplcc for malignant neoplasm of colonNortheast Regional Medical CenterDXA Skeletal system Views for bone densityDEXA bone density Imaging Routine Postmenopausal Ordered: 03/27/2024NOCT [employer] Work Phone: comment on above:Ordered: 03/27/2024MG Breast - bilateral ScreeningOhio State East HospitalMG Breast - bilateral ScreeningAdventHealth Palm [facility] Immunizations Immunization DateImmunizationNotesCare JbcyzmghCjsfmryo61-66-7092yhbmzjbud, high dose seasonal, preservative-freeBenjamin Ball DO Work Phone: [facility]10-15-2024influenza, high dose seasonal, preservative-freeOhio State East Hospital10-02-2023 influenza virus vaccine, unspecified formulationOhio State East Hospital10-02-2023influenza, high dose seasonal, preservative-freeBenneftaly Donald Other [facility] [employer] Other [id number]-84 mRNA Bivalent Booster (Pfizer) Kenan Donald DO Work Phone: [facility]09-28-2022influenza virus vaccine, split virus (incl. purified surface antigen)Kenan Donald Other [employer] Other [id number] virus vaccine, unspecified formulationOhio State East Hospital09-28-2022Influenza, Seasonal, Quadrivalent, AdjuvantedAnthony Aceher DPM Work Phone: HandelabraGamesSt. Louis VA Medical CenterIpgkwlytai39-97-1422eodhruoufjuo polysaccharide vaccine, 23 valentBenneftaly Donald Other [facility]11-03-2021zoster vaccine recombinantClintony Yaakov DPM Work Phone: noSt. Louis VA Medical CenterRpghcxqoqj07-30-9578mukjmh vaccine, liveBenneftaly Donald Other [facility]10-19-2021COVID-19 mRNA, Comirnaty (Pfizer)Kenan Donald DO Work Phone: [facility]10-04-2021influenza virus vaccine, split virus (incl. purified surface antigen)Kenan Donald Other [employer] Other [id number] virus vaccine, unspecified formulationOhio State East Hospital07-23-2021zoster vaccine recombinant Yuni Yaakov DPM Work Phone: HandelabraGamesSt. Louis VA Medical CenterWxjueajxwi24-99-2183guesda vaccine, liveBenjakristin Donald Other [facility]10-13-2020influenza virus vaccine, split virus (incl. purified surface antigen)Kenan Donald Other [employer] Other [id number] virus vaccine, unspecified formulationOhio State [facility] Hospital10-21-2019influenza, high dose seasonal, preservative-freeAnthony Rusher DPM Work Phone: [facility] CenterJnpjrsutex08-53-6605duiqvvklebnz polysaccharide vaccine, 23 valentAnthony Rusher DPM Work Phone: [facility] CenterWxdkkkzaad11-89-0183Wwlyydwty Vaccine, unspecified formulationMercy Health Defiance Hospital Work Phone: [phone] 532-155310482699-81-8384ublldvjjn virus vaccine, unspecified formulationAnthony Rusher DPM Work Phone: [facility] CenterXoluthtnvl98-41-1337pzewxdbgd virus vaccine, split virus (incl. purified surface antigen)Kenan Donald Other [employer] Other 10325522-18-9321wgbzmktgu virus vaccine, unspecified formulationOhio [facility] Hospital10-03-2018Seasonal trivalent influenza vaccine, adjuvanted, preservative freeAnthony Rusher DPM Work Phone: [facility] CenterOesxfvdrmi95-05-6877gbizhvmhu virus vaccine, split virus (incl. purified surface antigen)Kenan Donald Other [employer] Other 01016545-29-6574jmlyaxjod virus vaccine, unspecified formulationOhio [facility] Hospital01-19-2018pneumococcal conjugate vaccine, 13 valentBenneftaly Donald Other [facility]01-19-2018 pneumococcal polysaccharide vaccine, 23 valentAnthony Rusher DPM Work Phone: [facility] CenterGmjhqjkrhf35-03-0562Kdsowhsa trivalent influenza vaccine, adjuvanted, preservative freeAnthony Rusher DPM Work Phone: [facility] CenterFnjoksnhjl56-76-0501slpllnmbi, injectable, quadrivalent, preservative freeAnthony Rusher DPM Work Phone: [facility] CenterGtbeaygkvl30-96-3231pzzyjsnyg, high dose seasonal, preservative-freeYuni Bello DPM Work Phone: [facility] CenterZdsopfyull70-64-2495cshmewf and diphtheria toxoids, adsorbed, preservative free, for adult use (5 Lf of tetanus toxoid and 2 Lf of diphtheria toxoid)Kenan Donald Other [facility] Payers DatePayer CategoryPayerPolicy [id number] (Managed Care)[employer] [id number] [id number] 2016Medicarexxxxxxxxxxx [id number]-sox81-59-8975Cgxpfze [id number] 2.0.1.824772.3.579.2. [id number] 2..1.024521.3.57[id number] 2.840.1.099214.3.57[id number] 2.0.1.903877.3.57[id number] 2.16.840.1.574621.3.57[id number] 2.16.840.1.858226.3.57[id number] 2.16.840.1.002868.3.57[id number] 2.16.840.1.104607.3.57[id number] 2.16.840.1.367646.3.579.[id number] 2.16.840.1.204623.3.57[id number] 2.16.840.1.951443.3.57[id number] 2.16.840.1.891609.3.57[id number] 2.16.840.1.79[id number] 2.16.840.1.319783.3.579.2.593 [id number] 2.16.840.1.707558.3.579.2.531 Social History DateTypeDetailFacilityStart: 02-05-2019 End: 53-14-9352Pvkeidh smoking status RIISNeadventhealth porter smokerCrystal Clinic Orthopedic CenterSmarp. Phone: start: 27-10-0882Glqiufz intakeCurrent drinker of alcohol (finding)[facility] [email or web address] Phone: start: 95-07-9032Hizhlzf CommentrarelyMavita health system [facility] [employer] Work Phone: start: 49-11-8106Vfj Assigned At BirthNot on fileMerSmarp. Phone: start: 03-27-2024 End: 30-91-1253Orm [facility] [employer] Other Start: 37-92-8198Gfu Assigned At [facility]lower HospitalTobacco smoking status NHISTobacco smoking consumption unknownNOMS HealthcareStart: 15-20-3011Fqqjbbj use and exposureSmokeless tobacco non-userNOMS HealthcareStart: 03-27-2024 End: 45-79-7067Urisfvpsn beverage intakeEx-drinker (finding)[facility] Start: 03-27-2024 End: 40-24-5725Iflxlnl of Social functionNOMS HealthcareStart: 05-08-2024 End: 02-13-7376XxvIlhueq (finding)[facility] Medical Equipment Procedure CodeEquipment CodeEquipment Original TextEquipment IdentifierDates OneTouch LancetsBlood Sugar Diagnostic (Onetouch Verio Test Strips) stripStart: 47-86-2261Dkuzi Sugar Diagnostic (Onetouch Verio Test Strips) stripStart: 77-00-9903Txkko Sugar Diagnostic (Onetouch Verio Test Strips) stripStart: 83-99-6066Kbega Sugar Diagnostic (Onetouch Verio Test Strips) stripStart: 93-06-9301Bteit Sugar Diagnostic (Onetouch Verio Test Strips) stripStart: 05-09-2023 End: 11-12-2024 Clinical Notes 03-29-2022 to 12-19-2024 Note Date & SitxFyqsRpxckjwl03-66-3630 Evaluation note* Diagnosis Onset Date Resolution Status Admit Date Essential (primary) hypertension acuteOctober 2024 8:23amGastroesophageal reflux disease with esophagitis without hemorrhageacuteOctober 2024 8:23amMedicare annual wellness visit, subsequentacuteOctober 2024 8:23amObesityacuteOctober 2024 8:23am Screening mammogram for breast canceracuteOctober 2024 8:23amType 2 diabetes mellitus with hyperglycemiaacuteOctober 2024 8:23[facility] Work Phone: 1(446) 921-304005-21-2025 History of Present illness Narrative* Yuni Nuno, DPM - 08/08/2024 9:00 AM EDT Images from the original note were not [...] days, then take once daily for 5 days.,Disp: 15 tablet, Rfl: 0 Semaglutide,0.25 or 0.5MG/DOS, [...] noted along the sinus tarsi. Anterior, anteromedial andanterolateral ankle tenderness has greatly improved. 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 Patient tolerated the procedure well and a band-aidwas applied over the injection site. I have [...] understanding. Yuni Nuno DPM documented in this encounterNortheast Regional Medical [id number] History of Present illness Narrative* Yuni Nuno DPM - 07/25/2024 9:00 AM EDT Images from the original note were not [...] evaluation of right ankle pain. She was treatedwith a an ASO brace for the last 6 weeks with minimal improvement. She states that she requires herhusband's help to get the brace on and [...] is minimal to no tenderness to palpation. Musclestrength 4/5 for inversion with very mild tenderness. [...] Primary osteoarthritis of right ankle M19.071 betamethasone acetate- betamethasone sodium phosphate (Celestone) injection 3 mg triamcinolone [...] daily basis despite oral steroid and bracing. Onradiographs she does have some degenerative changes especially along the anteromedial ankle joint. At this time I recommend intra-articular cortisone injection. This will help us to determine if the majority of her symptoms are coming from the ankle or potentially extra- articular. Additionally has a potential to give her [...] hours as needed for the next day tohelp reduce any steroid flare reaction. I would [...] understanding. Yuni Nuno DPM documented in this [facility]03-26-2025 History of Present illness Narrative* Yuni Nuno DPM - 06/13/2024 2:15 PM EDT Images from the original note were not included. Subjective Patient ID: Rosalind Ramey is a 74 y.o. 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 She denies any injury butstates that she did have right hip replacement [...] History: Diagnosis Date Type 2 diabetes mellitus ([facility]) Medications Current Outpatient Medications: losartan (Cozaar) 25 [...] days, then take once daily for 5 days.,Disp: 15 tablet, Rfl: 0 Semaglutide,0.25 or 0.5MG/DOS, [...] as well as 2 views of the affectedankle were taken in office today and I [...] of therapy include prevent further injury, reduced va lgus instability of the hindfoot into increased ability [...] was sent to patient's pharmacy. Follow up 6weeks. Depending on clinical response I would consider [...] understanding. Yuni Nuno DPM documented in this encounterNortheast Regional Medical [id number] Evaluation note* Diagnosis Onset Date Resolution Status Admit Date Essential (primary) hypertension acuteFebruary 2024 9:23amGastroesophageal reflux disease with esophagitis without hemorrhageacuteFebruary 2024 9:23amObesityacuteFebruary 2024 9:23amType 2 diabetes mellitus with hyperglycemiaacuteFebruary 2024 9:23amUrticaria due to heatacuteFebruary 2024 9:23am [facility] Work Phone: [phone]) 787-516901-07-2025 History of Present illness Narrative* Yojana Meneses DO - 03/27/2024 3:00 PM EST Images from the original note were not included. Yojana Meneses DO Obstetrics and Gynecology Name: Rosalind Ramey Date/Time of Service:03/27/2024 4:04 PM :1950 Age: 74 y.o. Subjective Rosalind Ramey is a 74 y.o. female who is here for a routine exam. Gynecologic Exam (Patient here for a yearly. Denies problems at this time. Completed Mammogram on 02/06/24-negative. DEXA scan order sent to [place]. colonoscopy 2020. Patient reports worsening urgeincontinence, soaking [...] incontinence Will refer patient to Urologist at [place] for further evaluation/management and possible Botox treatment [...] 1 year (around 03/27/2025) for Yearly. Yojana Meneses DO 03/27/2024 4:04 PM documented in this encounterNortheast Regional Medical [id number] Evaluation note* Encounter Date Diagnosis Assessment Notes [...] reviewed and amended by provider signed below. Dec,Type 2 diabetes mellitus with hyperglycemia, without long-term current use of insulin (ICD-10 - E11.65)This patient is following a comprehensive diabetic treatment [...] Microalbumin, Dilated eye exam and Foot exam Dec,Essential (primary) hypertension (ICD-10 - I10)This patient is instructed to consume a healthy, low-fat, low-salt diet. They are also encouraged to continue exercise to achieve/maintain a normal BMI. Dec,astroesophageal reflux disease with esophagitis without hemorrhage (ICD-10 - K21.00)Diet instructions: Smaller portions, avoid eating and laying flat, avoid eating or drinking prior to bedtime. Weight loss. Dec,Elevated cholesterol (ICD-10 - E78.00)Instructed on diet and exercise with continued statin therapy.Discussed the beneficial effects of lo wering cholesterol in reducing the risk for cerebrovascular and cardiovascular disease. Dec,Overweight (ICD-10 - E66.3)This patient has been instructed on a low-fat, high-fiber diet. They are instructed to reduce calories, portion sizes and snacks. It is recommended that they exercise for 30 minutes, 3-5 times weekly. Dec,Right hip pain (ICD-10 - M25.551)Severe OA hip. f/u Orthopedics w/ plans on DANUTA this winter. ROM exercises, ice/heat and Tylenol Dec,Systolic murmur (ICD-10 - R01.1)No echocardiogram noted in past. Denies CP, dyspnea, palpitations or lightheadedness Denies hx of Rheumatic fever Dec,Screening mammogram for breast cancer (ICD-10 - Z12.31) Dec,High risk medication use (ICD-10 - Z79.899) [facility] Other 01-25-2023 Evaluation note* Encounter Date Diagnosis Assessment Notes Treatment Notes Treatment Clinical Notes Mar, Essential (primary) hypertension (ICD-10 - I10) This patient is instructed to consume a healthy, low-fat, low-salt diet. They are also encouraged to continue exercise to achieve/maintain a normal BMI. Mar,Type 2 diabetes mellitus with hyperglycemia, without long-term current use of insulin (ICD-10 - E11.65)This patient is following a comprehensive diabetic treatment plan. They are checking their feet daily for calluses and nonhealing ulcers. They are being seen for yearly dilated eye examinations. Goals: SBP less than 130, LDL less than 100, FBS less than 140, AC and A1C less than 7%. They are checking their BS daily, will which are reviewed at the office visit. Mar,astroesophageal reflux disease with esophagitis without hemorrhage (ICD-10 - K21.00)Diet instructions: Smaller portions, avoid eating and laying flat, avoid eating or drinking prior to bedtime. Weight loss. Mar,Elevated cholesterol (ICD-10 - E78.00)Diet and exercise. Recheck at wellness examination. Goal LDL < 100, if not met will discuss medical therapy Mar,Obesity (BMI 30.0-34.9) (ICD-10 - E66.9)This patient has been instructed on a low-fat, high-fiber diet. They are instructed to reduce calori es, portion sizes and snacks. It is recommended that they exercise for 30 minutes, 3-5 times weekly. Mar,OtherDiet and exercise w/o medication at this time. [employer] Other 01-09-2023 Evaluation note* Encounter Date Diagnosis Assessment Notes Treatment Notes Treatment Clinical Notes Mar, IFG (impaired fasting glucose) ( ICD-10 - R73.01) Mar,Essential (primary) hypertension (ICD-10 - I10) [facility] Other Evaluation note* Diagnosis Screening mammogram for high-risk patient documented in this encounter [facility] Work Phone: evaluation noteNo InformationNort [employer] Other Evaluation note* Diagnosis Onset Date Resolution Status Essential (primary) hypertension acuteMedicare annual wellness visit, subsequentacuteScreening mammogram for breast canceracuteType 2 diabetes mellitus with hyperglycemiaacute [facility] Work Phone: Evaluation note* Diagnosis Encounter for gynecological examination (general) (routine) with abnormal findings- Primary Cystocele, midline Urge incontinence Postmenopausal Asymptomatic postmenopausal status (age-related) (natural) Screening breast examination Other screening breast examination documented [facility] encounter [facility]* Diagnosis Onset Date Resolution Status Admit Date Essential (primary) hypertension acuteFebruary 2024 9:23amGastroesophageal reflux disease with esophagitis without hemorrhageacuteFebruary 2024 9:23amObesityacuteFebruary 2024 9:23amType 2 diabetes mellitus with hyperglycemiaacuteFebruary 2024 9:23am Urticaria due to heatacuteFebruary 2024 9:23am [facility] Work Phone: Evaluation note* Diagnosis Primary osteoarthritis of right ankle- Primary Valgus deformity, not elsewhere classified, right ankle Posterior tibial tendinitis of right lower extremity Instability of right ankle joint Acute right ankle pain Right foot pain Pain in soft tissues of limb Equinus contracture of right ankle Difficulty walking Difficulty in walking documented in this encounter [facility] HealthcareEvaluation note* Diagnosis Primary osteoarthritis of right ankle- Primary Arthralgia of right foot Valgus deformity, not elsewhere classified, right ankle Posterior tibial tendinitis of right lower extremity documented in this encounter [facility] HealthcareEvaluation note* Diagnosis 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 Primary osteoarthritis of right ankle Valgus deformity, not elsewhere classified, right ankle documented in this encounter [facility] HealthcareHistory general Narrative - Reported* Type Description Date Medical History COVID-19 Medical HistoryImpaired fasting glucoseMedical HistoryContusion of left side of back, initial encounterMedical HistoryMalaiseMedical HistoryFatigueMedical HistorySuspected sleep apneaMedical HistoryFamilial hypercholesterolemiaMedical HistoryMenopauseMedical HistoryVitamin D deficiencyMedical HistoryUrinary incontinenceMedical History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Medical History Breast cancer screening by mammogramMedical HistoryDepression screeningMedical HistoryObesityMedical HistoryEssential hypertensionMedical History Gastroesophageal reflux disease with esophagitis without hemorrhageMedical HistoryHigh risk medication useSurgical [id number] History colonoscopySurgical [id number] Historytonsillectomy Surgical OdkrdtzIDOXDXEU03/2021Hospitalization HistorySEE SURGICAL HX [facility] Other Reason for referral (narrative)No reason for referral information availableOhiohealth Southeastern Medical Center Work Phone: Summary Purpose Family History No Family History Records FoundNo Family History Records FoundNo Family History Records FoundNo Family History Records Found Advance Directives TypeDate RecordedPatient RepresentativeExplanationAdvance Directives and Living WillPower of Spectrograph Operator Advance Directive Response Recorded Date/ Time Advance Directives No April 27, 2023 11:42am Advance Directive Response Recorded Date/ Time Advance Directives No April 27, 2023 10:42am Reason for Referral StatusReasonSpecialtyDiagnoses / ProceduresReferred By ContactReferred To ContactClosed Diagnoses Screening mammogram for high-risk patient Procedures MARKO DIGITAL SCREEN W CAD BILATERAL HC MAMMO SCREENING INCL CAD IF PERF Andrew Mix MD [address] [place] [address] Chief Complaint and Reason for Visit Chief Complaint Admit Date 2 month f/u May 08, 2024 9:23am R30.0 - Dysuria July 23, 2024 10:46a m Reason for Visit Admit Date Essential (primary) hypertension uar 2024 9:23am Gastroesophageal reflux dise ase with [...] 2 month f/u May 08, 2024 9:23am Chief Complaint Admit Date Wellness January 04, 2025 8 :23am Reason for Visit Admit Date Essential (primary) hypertension January 04, 2025 8:23am Gastroesophageal reflux dise ase with esophagitis without hemorrhage January 04, 2025 8:23am Medicare annual wellness visit, subseque nt January 04, 2025 8:23am Obesity January 04, 2025 8 :23am Screening mammogram for breast cancer O[facility] tober 2024 8:23am Type 2 diabetes mellitus with hyperglyce rudy January 04, 2025 8:23am Additional Source Comments INFORMATION SOURCE (unrecogn ized section and content) DATE CREATED AUTHOR 03/08/2019 [facility] DATE CREATED AUTHOR AUTHOR'S ORGANIZ ATION 04/13/2022 [facility] DATE CREATED AUTHOR AUTHOR'S ORGANIZ ATION 07/26/2024 [facility] DATE CREATED AUTHOR AUTHOR'S ORGANIZ ATION 08/14/2024 [facility] REASON FOR VISIT (unrecogniz ed section and content) ReasonCommentsGynecologic ExamPatient here for a yearly. Denies problems at this time. Completed Mammogram on 02/06/24-negative. DEXA scan order sent to [place]. colonoscopy 2020. Patient reports worsening urge incontinence, soaking pads sometimes. 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 NKI, pt relates maybe straining. Pt relates pain gets worse throughout the day, burning pain. Denies swelling. Pt ices foot, pt does take meloxicam but that doesn't seem to help, but does help when tylenol is added. SS: 8.5ReasonCommentsFollow-upEstablished pt presents today for 6 week fuv of right foot pain. Pt states her pain is about the same. Pt states she stopped wearing brace last week, states she felt better after taking if off. Pt was able to finish steroid taper.ReasonCommentsFollow-up Established pt presents today for 2 week injection [...] Start: January 03, 2024 End: January 03, 2024Team MemberRelationshipSpecialtyStart DateEnd Date Kenan Donald MD [address] [place] [phone] PCP - GeneralInternal Medicine03/27/24Team MemberRelationshipSpecialtyStart Date End Date Kenan Donald MD [address] [facility] [place] [phone] PCP - GeneralInternal Medicine03/27/24 Team Status: Inactive Member Role Status Dates Kenan Donald DO Primary Care Provide r, Attending Provider Active Start: May 08, 2024 End: May 08, 2024Team MemberRelationshipSpecialtyStart DateEnd Date Kenan Donald MD [address] [place] [phone] PCP - GeneralInternal Medicine03/27/24Team MemberRelationshipSpecialtyStart Date End Date Kenan Donald MD [address] [place] [phone] PCP - [facility]White [facility] Centernal Medicine03/27/24 Team Status: Inactive Member Role Status Dates Kenan Donald DO Primary Care Provide r, Attending Provider Active Start: July 23, 2024 End: July 23, 2024Team MemberRelationshipSpecialtyStart DateEnd Date Kenan Donald DO [address] [facility] [place] [phone] PCP - GeneralWhite Mountain [facility] Medical Centernal Medicine03/27/24Team MemberRelationshipSpecialtyStart Date End Date Kenan Donald DO [address] [facility] [place] [phone] PCP - GeneralWhite Mountain [facility] Medical Centernal Medicine03/27/24Team MemberRelationshipSpecialtyStart Date End Date Kenan Donald DO [address] [place] [phone] PCP - GeneralInternal Medicine03/27/24 Team Status: Active Member Role/Relationship Status Dates Kenan Donald DO Primary Care Provider Active Team Status: Inactive Member Role/Relationship Status Dates Kenan Donald DO Primary Care Provider Active Start: January 04, 2025 End: January 04enneftaly Donald DOAttending ProviderActiveStart: January 04, 2025 End: January 04, 2025 Goals (unrecognized section and content) Goals may [...] BE BASED ON THE PRIMARY CLINICAL RECORDS. [facility] [employer] [facility]. provides no warranty or guarantee of the accuracy or completeness of information in this document.
[2025-02-06 09:21] LABS: Hematocrit 42.6 % (36.0-48.0); Hemoglobin 14.9 g/dL (12.0-16.0); Immature Granulocytes Abs Auto 0.01 10^3/uL (0.00-0.03); Immature Granulocytes Pct Auto 0.1 % (0.0-0.5); Lymphocytes Absolute Auto 3.0 10^3/uL (1.2-3.8); Mean Corpuscular HGB Conc 35.0 g/dL (29.9-35.2); Mean Corpuscular Hemoglobin 31.8 pg (26.7-34.0); Mean Corpuscular Volume 91.0 fL (81.0-99.0); Platelet Count 268 10^3/uL (150-450); Red Blood Count 4.68 10^6/uL (4.20-5.40); White Blood Count 7.2 10^3/uL (4.0-11.0)
--- NOTE | 2025-02-06 09:29 | MM_ITS ---
Patient Name: JUDD YOUNG MR#: [id number] : 1950 Exam Date: 02/06/2025 Ordering Doctor: DR OSMAN LAWTON D.O. RADIOLOGY REPORT PROCEDURE: MM TOMOSYNTHESIS SCREENING BI COMPARISON: MM TOMOSYNTHESIS SCREENING BI, 02/06/2024. MM TOMOSYNTHESIS SCREENING BI, 01/31/2023. MG MAMM SCREEN 3D KA[place]NN CAD, 01/27/2022. MG MAMM SCREEN KA[place]LYNN W CAD, 11/06/2016. INDICATIONS: Screening Calculator Name NCI Breast Cancer Risk Assessment Tool 5 Year Breast Cancer Risk Not Reported. Lifetime Breast Cancer Risk Not Reported. Personal Breast Cancer No Personal Ovarian Cancer No Treatments None Family Cancers None LOCATION: [facility] BREAST COMPOSITION: The breasts are heterogeneously dense, which may obscure small masses. FINDINGS: RIGHT BREAST: No significant suspicious finding. LEFT BREAST: No significant suspicious finding. Benign-appearing calcifications are present. DIAGNOSTIC CATEGORY 2--BENIGN FINDING. NO CHANGE FROM COMPARISON. RECOMMENDATIONS: ROUTINE MAMMOGRAM AND CLINICAL EVALUATION IN 12 MONTHS. Dictated by: Edvin Pace MD on 02/06/2025 at 15:39 Approved by: Edvin Pace MD on 02/06/2025 at 15:43
[2025-02-06 09:31] LABS: Microalbum Creatinine Ratio Ur 9.2 mg/g (0.0-29.9)
[2025-02-06 09:44] LABS: Alanine Aminotransferase 63 U/L (14-59); Anion Gap 12.8; Aspartate Amino Transferase 32 U/L (15-37); Blood Urea Nitrogen 19.0 mg/dL (7.0-18.0); Calcium 9.0 mg/dL (8.5-10.1); Carbon Dioxide 26.2 mmol/L (21.0-32.0); Chloride 105 mmol/L (98-107); Estimated GFR (African America >60 (>=60 mL/min/1.73m^2); Estimated GFR (Non-African Ame >60 (>=60 mL/min/1.73m^2); Glucose 134 mg/dL (74-106); Potassium 4.0 mmol/L (3.5-5.1); Sodium 140 mmol/L (136-145)
[2025-02-06 09:45] LABS: Albumin Globulin Ratio 1.1; Albumin Level 3.9 g/dL (3.4-5.0); Alkaline Phosphatase 89 U/L (46-116); Cholesterol 204 mg/dL (<=200); Globulin 3.6 g/dL; HDL Cholesterol 47 mg/dL (40-60); Thyroid Stimulating Hormone 1.875 uIU/mL (0.358-3.740); Total Protein 7.5 g/dL (6.4-8.2); Triglycerides 121 mg/dL (<=150); VLDL CHOLESTEROL 24.2 mg/dL
== END 2025-02-06 08:52 | disposition home or self-care (01) ==
LOC: MAMMO 08:52
PROVIDERS: PCP Internal Medicine; Visit Provider Internal Medicine
DX: Z12.31 Encounter for screening mammogram for malignant neoplasm of breast (principal); I10 Essential (primary) hypertension; E78.00 Pure hypercholesterolemia, unspecified; E11.65 Type 2 diabetes mellitus with hyperglycemia; R53.83 Other fatigue
CPT/HCPCS: 36415; 77063; 77067; 80053; 80061; 82043; 82570; 83036; 84443; 85025